=== PATIENT | male | born 1960 | race American Indian/Alaskan Native ===

== ENCOUNTER 2019-05-09 11:40 | Inpatient (IN) | payer BC ==
--- NOTE | 2019-05-09 11:49 | Emergency Department Report ---
Blank Doc - Documentation Documentation: This is a 58-year-old male that presents with left leg swelling and blisters. History of diabetes. Had a doppler ultrasound last week and was negative for DVT. Agrees to follow-up PCP for this complaint. Finger stick 209 in triage. This initial assessment/diagnostic orders/clinical plan/treatment(s) is/are subject to change based on patient's health status, clinical progression and re- assessment by fellow clinical providers in the ED. Further treatment and workup at subsequent clinical providers discretion. Patient/guardians urged not to elope from the ED as their condition may be serious if not clinically assessed and managed. Initial orders include: 1- Patient sent to [facility] for further evaluation and treatment 2- labs
[2019-05-09] MEDS ORDERED: ROCEPHIN/NS 1 GM/50 ML 1 GM/50 ML BAG IV ONE (12:19)
--- NOTE | 2019-05-09 12:20 | Emergency Department Report ---
<ENRIQUE SOMMERSANDRA - Last Filed: 05/09/19 15:36> - General Chief complaint: Extremity Problem,Nontraumatic Stated complaint: LT LEG SWOLLEN Time Seen by Provider: 05/09/19 11:44 - Related Data Allergies Allergy/AdvReac Type Severity Reaction Status Date / Time No Known Allergies Allergy Unverified 05/09/19 11:44 Abscess Boil HPI - HPI Chief Complaint: Extremity Problem,Nontraumatic Stated Complaint: LT LEG SWOLLEN Time Seen by Provider: 05/09/19 11:44 Allergies/Adverse Reactions: Allergies Allergy/AdvReac Type Severity Reaction Status Date / Time No Known Allergies Allergy Unverified 05/09/19 11:44 ED Course - Reevaluation(s) Reevaluation #1: I examined the patient. I discussed plan of care with patient. I discussed results with patient. Patient agrees plan of care and admission. Patient will be admitted to the hospital service. 05/09/19 15:38 - Consultations Consultation #1: I discussed case with nephrology, Dr Blevins. Nephrology recommends admission to the hospitalist service 05/09/19 15:30 Consultation #2: Hospitalist consulted for admission. Hospitalist admit patient. 05/09/19 15:38 ED Medical Decision Making - Lab Data Result diagrams: 05/09/19 12:26 05/09/19 12:26 Critical Care Time: Yes Critical Care Time: 35 minutes ED Disposition Clinical Impression: Acute renal insufficiency, Nephrotic syndrome, Left leg swelling, Essential hyp ertension Anemia Qualifiers: Anemia type: unspecified type Qualified Code(s): D64.9 - Anemia, unspecified Cellulitis Qualifiers: Site of cellulitis: extremity Site of cellulitis of extremity: lower extremity Laterality: left Qualified Code(s): L03.116 - Cellulitis of left lower limb Disposition: -09 OP ADMIT IP TO THIS HOSP Is pt being admited?: Yes Does the pt Need Aspirin: No Condition: Critical Instructions: Hypertension (ED) Referrals: PRIMARY CARE, [Primary Care Provider] - 3-5 Days Time of Disposition: 15:37 <CORAL CLARK - Last Filed: 05/09/19 15:45> - General Source: patient Mode of arrival: Ambulatory Limitations: No Limitations - History of Present Illness Initial comments: She is a 58-year-old male who comes to the ER complaining of swelling of his left lower extremity. He states that he is from [place]. He saw his primary care doctor in [place] last week she sent him for an ultrasound of his leg which was negative for DVT. Patient states that his PCP then told him he didn't know what else to do with him and he was discharged home with no antibiotics or follow-up plan. Denies fever or chills. Denies trauma. Denies bite to leg. Denies SOB or CP. Denies any pain of the RLE. Ambulatory. PMH HTN HPLD DM anemia PSH prostate surgery Denies CAD/CHF or CVA; NOR KD Denies drugs/ETOH/cig use PCP in [place] meds-pt states he is compliant with his meds insulin 2 BP meds- losartan and another that he can not recall the name of Iron Vit D pill for his high cholesterol -: Gradual Tetanus Up to Date: unsure Treatments Prior to Arrival: other ED Review of Systems ROS: Stated complaint: LT LEG SWOLLEN Other details as noted in HPI Comment: All other systems reviewed and negative Eyes: denies: eye pain ENT: denies: throat pain Respiratory: denies: cough Cardiovascular: edema (lle). denies: palpitations Endocrine: denies: flushing Gastrointestinal: denies: nausea, vomiting Genitourinary: denies: dysuria Musculoskeletal: as per HPI, other (lle swelling and rash) Skin: as per HPI, lesions Neurological: denies: headache Psychiatric: denies: anxiety Hematological/Lymphatic: denies: easy bleeding ED Past Medical Hx - Past Medical History Previous Medical History?: Yes Hx Hypertension: Yes Hx CVA: No Hx Heart Attack/AMI: No Hx Congestive Heart Failure: No Hx Diabetes: Yes Hx Deep Vein Thrombosis: No Hx Pulmonary Embolism: No Hx GERD: No Hx Liver Disease: No Hx Renal Disease: No Hx of Cancer: No Hx Sickle Cell Disease: No Hx Arthritis: No Hx Headaches / Migraines: No Hx Seizures: No Hx Kidney Stones: No Hx Psychiatric Treatment: No Hx Asthma: No Hx COPD: No Hx Tuberculosis: No Hx Dementia: No Hx HIV: No Additional medical history: anemia, dyslipidemia - Surgical History Past Surgical History?: Yes Additional Surgical History: Prostatectomy - Family History Family history: no significant - Social History Smoking Status: Never Smoker Substance Use Type: None ED Physical Exam - General Limitations: No Limitations General appearance: alert - Head Head exam: Present: normocephalic - Eye Eye exam: Present: PERRL Pupils: Present: normal accommodation - ENT ENT exam: Present: mucous membranes moist - Neck Neck exam: Present: normal inspection - Respiratory Respiratory exam: Present: normal lung sounds bilaterally - Cardiovascular Cardiovascular Exam: Present: regular rate, other (100 ON EXAM) - GI/Abdominal GI/Abdominal exam: Present: soft, normal bowel sounds - Rectal Rectal exam: Present: deferred - Extremities Exam Extremities exam: Present: normal inspection, full ROM - Back Exam Back exam: Present: normal inspection, full ROM. Absent: CVA tenderness (R), CVA tenderness (L) - Neurological Exam Neurological exam: Present: alert, oriented X3, CN II-XII intact - Psychiatric Psychiatric exam: Present: normal affect, normal mood - Skin Skin exam: Present: warm, dry, other (LLE SWELLING FROM KNEE TO ANKLE WITH DI SCOLORATION OF THE SKIN. DP PLUS 2 B. ) ED Course Vital Signs 05/09/19 05/09/19 11:45 14:29 Temperature 98.6 F Pulse Rate 103 H 93 H Respiratory 18 16 Rate Blood Pressure 207/113 Blood Pressure 143/84 [Right] O2 Sat by Pulse 98 97 Oximetry ED Medical Decision Making - Lab Data Result diagrams: 05/09/19 12:26 05/09/19 12:26 - Radiology Data Radiology results: report reviewed, image reviewed interpreted by me: no chf normal - Medical Decision Making PT STATES HE HAD US LAST TUESDAY THAT WAS NEG FOR DVT; HE STATES HIS PCP THEN DID NOT TELL HIM WHAT TO DO ABOUT HIS LEG HES HAD PROGRESSIVE PAIN AT THE LLE. NO TRAUMA NO INJURY/BITE KNOWN SEE HPI NO CP NO SOB NO HX VTE CHEST XRAY NOTED- NO CHF BP ELEVATED ON ADMIT- TAKING BP MEDS BG INC- PH NORMAL- ON INSULIN AT HOME; NO METFORMIN PER PT LABS NOTED UA NOTED URINE NA/CR NOTED BC ORDERED DISCUSSED CASE WITH DR NUNEZ; WHO THEN DISCUSSED WITH NEPHROLOGY CONSULTED- REC. ADMIT. DISCUSSED ALL FINDINGS WITH THE PT AND HE IS OK WITH ADMIT ADMIT TO HOSP MED WITH NEPHROLOGY CONSULT Lab Results 05/09/19 05/09/19 05/09/19 Range/Units 12:26 12:26 14:45 WBC 5.0 (4.5-11.0) K/mm3 RBC 3.80 (3.65-5.03) M/mm3 Hgb 10.1 L (11.8-15.2) gm/dl Hct 31.4 L (35.5-45.6) % MCV 83 L (84-94) fl MCH 27 L (28-32) pg MCHC 32 (32-34) % RDW 13.5 (13.2-15.2) % Plt Count 138 L (140-440) K/mm3 Lymph % (Auto) 15.1 (13.4-35.0) % [place] % (Auto) 8.0 H (0.0-7.3) % Eos % (Auto) 2.8 (0.0-4.3) % Baso % (Auto) 0.7 (0.0-1.8) % Lymph # 0.8 L (1.2-5.4) K/mm3 [place] # 0.4 (0.0-0.8) K/mm3 Eos # 0.1 (0.0-0.4) K/mm3 Baso # 0.0 (0.0-0.1) K/mm3 Seg Neutrophils % 73.4 H (40.0-70.0) % Seg Neutrophils # 3.7 (1.8-7.7) K/mm3 Sodium 142 (137-145) mmol/L Potassium 4.7 (3.6-5.0) mmol/L Chloride 110.3 H (98-107) mmol/L Carbon Dioxide 23 (22-30) mmol/L Anion Gap 13 mmol/L BUN 46 H (9-20) mg/dL Creatinine 3.1 H (0.8-1.5) mg/dL Estimated GFR 21 ml/min BUN/Creatinine Ratio 15 % Glucose 197 H (75-100) mg/dL Calcium 8.0 L (8.4-10.2) mg/dL Total Bilirubin 0.20 (0.1-1.2) mg/dL AST 21 (5-40) units/L ALT 20 (7-56) units/L Alkaline Phosphatase 181 H (35-129) units/L Total Protein 6.6 (6.3-8.2) g/dL Albumin 3.3 L (3.9-5) g/dL Albumin/Globulin Ratio 1.0 % Urine Color Straw (Yellow) Urine Turbidity Clear (Clear) Urine pH 6.0 (5.0-7.0) Ur Specific [place] 1.012 (1.003-1.030) Urine Protein >2000 mg dl (Negative) mg/dL Urine Glucose (UA) 150 (Negative) mg/dL Urine Ketones Neg (Negative) mg/dL Urine Blood Mod (Negative) Urine Nitrite Neg (Negative) Urine Bilirubin Neg (Negative) Urine Urobilinogen < 2.0 (<2.0) mg/dL Ur Leukocyte Esterase Tr (Negative) Urine WBC (Auto) 1.0 (0.0-6.0) /HPF Urine RBC (Auto) 7.0 (0.0-6.0) /HPF U Epithel Cells (Auto) < 1.0 (0-13.0) /HPF Urine Creatinine (0.1-20.0) mg/dL Urine Sodium mmol/L 05/09/19 Range/Units 14:45 WBC (4.5-11.0) K/mm3 RBC (3.65-5.03) M/mm3 Hgb (11.8-15.2) gm/dl Hct (35.5-45.6) % MCV (84-94) fl MCH (28-32) pg MCHC (32-34) % RDW (13.2-15.2) % Plt Count (140-440) K/mm3 Lymph % (Auto) (13.4-35.0) % [place] % (Auto) (0.0-7.3) % Eos % (Auto) (0.0-4.3) % Baso % (Auto) (0.0-1.8) % Lymph # (1.2-5.4) K/mm3 [place] # (0.0-0.8) K/mm3 Eos # (0.0-0.4) K/mm3 Baso # (0.0-0.1) K/mm3 Seg Neutrophils % (40.0-70.0) % Seg Neutrophils # (1.8-7.7) K/mm3 Sodium (137-145) mmol/L Potassium (3.6-5.0) mmol/L Chloride (98-107) mmol/L Carbon Dioxide (22-30) mmol/L Anion Gap mmol/L BUN (9-20) mg/dL Creatinine (0.8-1.5) mg/dL Estimated GFR ml/min BUN/Creatinine Ratio % Glucose (75-100) mg/dL Calcium (8.4-10.2) mg/dL Total Bilirubin (0.1-1.2) mg/dL AST (5-40) units/L ALT (7-56) units/L Alkaline Phosphatase (35-129) units/L Total Protein (6.3-8.2) g/dL Albumin (3.9-5) g/dL Albumin/Globulin Ratio % Urine Color (Yellow) Urine Turbidity (Clear) Urine pH (5.0-7.0) Ur Specific [place] (1.003-1.030) Urine Protein (Negative) mg/dL Urine Glucose (UA) (Negative) mg/dL Urine Ketones (Negative) mg/dL Urine Blood (Negative) Urine Nitrite (Negative) Urine Bilirubin (Negative) Urine Urobilinogen (<2.0) mg/dL Ur Leukocyte Esterase (Negative) Urine WBC (Auto) (0.0-6.0) /HPF Urine RBC (Auto) (0.0-6.0) /HPF U Epithel Cells (Auto) (0-13.0) /HPF Urine Creatinine 63.1 H (0.1-20.0) mg/dL Urine Sodium 145 mmol/L Vital Signs 05/09/19 05/09/19 11:45 14:29 Temperature 98.6 F Pulse Rate 103 H 93 H Respiratory 18 16 Rate Blood Pressure 207/113 Blood Pressure 143/84 [Right] O2 Sat by Pulse 98 97 Oximetry - Differential Diagnosis ro dvt/ ro cellulitis/ ro sepsis Critical care attestation.: If time is entered above; I have spent that time in minutes in the direct care of this critically ill patient, excluding procedure time. ED Disposition Does the pt Need Aspirin: No Time of Disposition: 13:59
[2019-05-09 12:40] LABS: Basophils % (Auto) 0.7 % (0.0-1.8); Eosinophils # (Auto) 0.1 K/mm3 (0.0-0.4); Eosinophils % (Auto) 2.8 % (0.0-4.3); Hematocrit 31.4 % (35.5-45.6); Hemoglobin 10.1 gm/dl (11.8-15.2); Lymphocytes # (Auto) 0.8 K/mm3 (1.2-5.4); Lymphocytes % (Auto) 15.1 % (13.4-35.0); Mean Corpuscular HGB Conc 32 % (32-34); Mean Corpuscular Volume 83 fl (84-94); Monocytes # (Auto) 0.4 K/mm3 (0.0-0.8); Platelet Count 138 K/mm3 (140-440); Red Cell Distribution Width 13.5 % (13.2-15.2)
[2019-05-09 13:06] LABS: Albumin 3.3 g/dL (3.9-5)
[2019-05-09] MEDS ORDERED: NACL 0.9% 1000 ML 1,000 ML IV ONE (13:28)
--- NOTE | 2019-05-09 13:49 | XRay Report ---
CHEST 2 VIEWS INDICATION: SOB/EDEMA. COMPARISON: None. FINDINGS: Support devices: None. Heart: Within normal limits. Pulmonary vasculature: All. Lungs/pleura: No acute air space or interstitial disease. No pneumothorax. Additional findings: Degenerative change in the spine. IMPRESSION: 1. No acute cardiopulmonary process. 2. No CHF or pneumonia. Signer Name: Kulwant Jameson MD Signed: 05/09/2019 1:44 PM Workstation Name: [id number]
[2019-05-09 15:00] LABS: Bilirubin,Urine NEG (Negative); Blood,Urine MOD (Negative); Color,Urine Straw (Yellow); Protein,Urine >2000 mg dL mg/dL (Negative); Urobilinogen,Urine < 2.0 mg/dL (<2.0)
[2019-05-09 15:02] LABS: Creatinine,Urine 63.1 mg/dL (0.1-20.0)
[2019-05-09] MEDS ORDERED: TYLENOL PO PRN (15:43)
[2019-05-09] MEDS ORDERED: SODIUM CHLORIDE FLUSH SYRINGE 10 ML IV PRN (15:43)
[2019-05-09] MEDS ORDERED: ZOFRAN IV PRN (15:43)
[2019-05-09] MEDS ORDERED: PROVENTIL IH PRN (15:43)
--- NOTE | 2019-05-09 16:08 | History and Physical Report ---
History of Present Illness Chief complaint: Im swollen, and my blood pressure is high History of present illness: 58 YO Male with HTN,DM, HLD presents to ED for evaluation. Pt states that he has experienced leg swelling over the past 2 weeks as well as uncontrolled HTN. Pt transported to [facility] via private vehicle. PT seen and evaluated in ED and found to have symptoms and laboratory findings consistent with JOSSY, Nephrotic Syndrome, and Hypertensive Urgency. Pt admitted to medical floor. Nephrology consulted in ED. Pt denies fever, Chills, CP, Palpitations, NVD, Productive cough, skin rash, or recent ill contacts. PT admitted to medical floor. Past History Past Medical History: diabetes, hypertension, hyperlipidemia Past Surgical History: No surgical history, Other (reviewed) Social history: single. denies: smoking, prescription drug abuse Family history: diabetes, hypertension Medications and Allergies Allergies Allergy/AdvReac Type Severity Reaction Status Date / Time No Known Allergies Allergy Unverified 05/09/19 11:44 Home Medications Medication Instructions Recorded Confirmed Last Taken Type AtorvaSTATin [Lipitor] 20 mg PO QHS 05/09/19 05/09/19 05/08/19 History Insulin Aspart [NovoLOG Flexpen] 10 units SQ AC 05/09/19 05/09/19 05/08/19 History Insulin Degludec [Tresiba 50 unit SQ QDAY 05/09/19 05/09/19 05/08/19 History Flextouch U-200] Metoprolol Xl [Metoprolol 50 mg PO QDAY 05/09/19 05/09/19 05/08/19 History SUCCINATE ER TAB] amLODIPine [Norvasc] 10 mg PO DAILY 05/09/19 05/09/19 05/08/19 History Active Meds: Active Medications Acetaminophen (Tylenol) 650 mg PO Q4H PRN PRN Reason: Pain MILD(1-3)/Fever >100.5/SCHNEIDER Albuterol (Proventil) 2.5 mg IH Q4HRT PRN PRN Reason: Shortness Of Breath Ondansetron HCl (Zofran) 4 mg IV Q8H PRN PRN Reason: Nausea And Vomiting Sodium Chloride (Sodium Chloride Flush Syringe 10 Ml) 10 ml IV BID SARAH Sodium Chloride (Sodium Chloride Flush Syringe 10 Ml) 10 ml IV PRN PRN PRN Reason: LINE FLUSH Review of Systems All systems: negative Constitutional: other (high blood pressure) Exam - Constitutional Vitals: Temp Pulse Resp BP Pulse Ox 98.6 F 93 H 16 143/84 97 05/09/19 11:45 05/09/19 14:29 05/09/19 14:29 05/09/19 14:29 05/09/19 14:29 General appearance: Present: no acute distress, well-nourished - EENT Eyes: Present: PERRL ENT: hearing intact, clear oral mucosa - Neck Neck: Present: supple, normal ROM - Respiratory Respiratory effort: normal Respiratory: bilateral: CTA - Cardiovascular Heart Sounds: Present: S1 & S2. Absent: rub, click - Extremities Extremities: pulses symmetrical, No edema Peripheral Pulses: within normal limits - Abdominal General gastrointestinal: Present: soft, non-tender, non-distended, normal bowel sounds Male genitourinary: Present: normal - Integumentary Integumentary: Present: clear, warm, dry - Musculoskeletal Musculoskeletal: gait normal, strength equal bilaterally - Psychiatric Psychiatric: appropriate mood/affect, intact judgment & insight - Neurologic Neurologic: CNII-XII intact, moves all extremities Results - Labs CBC & Chem 7: 05/09/19 12:26 05/09/19 12:26 Labs: Abnormal lab results 05/09/19 05/09/19 05/09/19 Range/Units 12:26 12:26 14:45 Hgb 10.1 L (11.8-15.2) gm/dl Hct 31.4 L (35.5-45.6) % MCV 83 L (84-94) fl MCH 27 L (28-32) pg Plt Count 138 L (140-440) K/mm3 [place] % (Auto) 8.0 H (0.0-7.3) % Lymph # 0.8 L (1.2-5.4) K/mm3 Seg Neutrophils % 73.4 H (40.0-70.0) % Chloride 110.3 H (98-107) mmol/L BUN 46 H (9-20) mg/dL Creatinine 3.1 H (0.8-1.5) mg/dL Glucose 197 H (75-100) mg/dL Calcium 8.0 L (8.4-10.2) mg/dL Alkaline Phosphatase 181 H (35-129) units/L Albumin 3.3 L (3.9-5) g/dL Urine Creatinine 63.1 H (0.1-20.0) mg/dL Assessment and Plan - Patient Problems (1) JOSSY (acute kidney injury) Current Visit: Yes Status: Acute Plan to address problem: monitor UOP q shift, Nephrology consulted, blood pressure control, urinalysis to monitor urine protein, (2) Hypertensive urgency, malignant Current Visit: Yes Status: Acute Plan to address problem: monitor BP q shift, continue medical management, IV hydralazine for SBP >155 (3) Diabetes Current Visit: Yes Status: Acute Plan to address problem: ADAdiet, insulin, accu check, hypoglycemia protocol (4) Nephrotic syndrome Current Visit: Yes Status: Acute Plan to address problem: Nephrology consulted, urine protein monitoring, urine electrolytes, supportive care, (5) DVT prophylaxis Current Visit: Yes Status: Acute Plan to address problem: SCD to BLE while in bed, Pt ambulatory
[2019-05-09] MEDS ORDERED: NON-FORMULARY (Insulin Aspart [Novolog Flexpen] 10 UNITS) SQ SCH (16:30)
[2019-05-09] MEDS ORDERED: APRESOLINE IV ONE (16:31)
[2019-05-09] MEDS ORDERED: APRESOLINE ONE (16:54)
[2019-05-09] MEDS: HumaLOG SUB-Q SCH (17:03)
[2019-05-09] MEDS ORDERED: TOPROL XL PO SCH ×2 (18:50→22:00)
[2019-05-09] MEDS ORDERED: NORVASC PO SCH (18:51)
[2019-05-09] MEDS: NORVASC PO SCH (22:31)
[2019-05-09] MEDS: SODIUM CHLORIDE FLUSH SYRINGE 10 ML IV SCH (22:34)
[2019-05-10] MEDS ORDERED: APRESOLINE IV PRN (05:07)
[2019-05-10 07:30] LABS: Calcium 7.8 mg/dL (8.4-10.2)
[2019-05-10] MEDS: HumaLOG SUB-Q SCH ×2 (07:30→14:24)
[2019-05-10] MEDS: HumuLIN R SUB-Q SCH ×2 (07:30→14:24)
--- NOTE | 2019-05-10 08:00 | Ultrasound Report ---
ULTRASOUND RENAL INDICATION / CLINICAL INFORMATION: Acute renal failure.. COMPARISON: None available. FINDINGS: RIGHT KIDNEY: Length = 9.7 cm. [normal > 9 cm] - Parenchymal Thickness = 1.7 cm. [normal > 1.5 cm] - Echogenicity: Increased - Hydronephrosis: None. - Cyst or mass: No significant abnormality. - Stones: None seen. LEFT KIDNEY: Length = 10.9 cm. [normal > 9 cm] - Parenchymal Thickness = 1.4 cm. [normal > 1.5 cm] - Echogenicity: Increased - Hydronephrosis: None. - Cyst or mass: No significant abnormality. - Stones: None seen. URINARY BLADDER: No significant abnormality. FREE FLUID: None. ADDITIONAL FINDINGS: None. IMPRESSION: Normal size but slightly echogenic kidneys consistent with nonspecific renal parenchymal disease. No focal renal lesion or hydronephrosis. Signer Name: Brandon Pinon Jr, MD Signed: 05/10/2019 7:56 AM Workstation Name: [id number]
--- NOTE | 2019-05-10 09:34 | Consultation ---
History of Present Illness - Reason for Consult Consult date: 05/10/19 acute renal failure, chronic renal failure - History of Present Illness The patient is a 58 YO male with history significant for Type 2 DM (5 yrs), HTN (5 yrs) and HLD (5 yrs) who presented to [facility] ED with c/o L leg swelling over the past 2 weeks. He also reports high BP inspite of taking all the meds prescribed by his PCP. Patient has been taking NSAIDs along with ASA for the past 3 weeks for leg pain. Per patient he had a scan of the L LE last week at [place] that was negative for clot. He denies N, V, D, abd pain, fever, chills, cp, cough, foamy urine, cp, sob, hemoptysis, dysuria, hematuria, rash or syncope. He has findings suggestive of Nephrotic Syndrome. He was admitted for treatment of Hypertensive urgency. Nephrology was consulted for further evaluation. Past History Past Medical History: diabetes, hypertension, hyperlipidemia Past Surgical History: No surgical history, Other (reviewed) Social history: single. denies: smoking, prescription drug abuse Family history: diabetes, hypertension Medications and Allergies Allergies Allergy/AdvReac Type Severity Reaction Status Date / Time No Known Allergies Allergy Unverified 05/09/19 11:44 Home Medications Medication Instructions Recorded Confirmed Last Taken Type AtorvaSTATin [Lipitor] 20 mg PO QHS 05/09/19 05/09/19 05/08/19 History Insulin Aspart [NovoLOG Flexpen] 10 units SQ AC 05/09/19 05/09/19 05/08/19 History Insulin Degludec [Tresiba 50 unit SQ QDAY 05/09/19 05/09/19 05/08/19 History Flextouch U-200] Metoprolol Xl [Metoprolol 50 mg PO QDAY 05/09/19 05/09/19 05/08/19 History SUCCINATE ER TAB] amLODIPine [Norvasc] 10 mg PO DAILY 05/09/19 05/09/19 05/08/19 History Active Meds: Active Medications Acetaminophen (Tylenol) 650 mg PO Q4H PRN PRN Reason: Pain MILD(1-3)/Fever >100.5/SCHNEIDER Albuterol (Proventil) 2.5 mg IH Q4HRT PRN PRN Reason: Shortness Of Breath Amlodipine Besylate (Norvasc) 10 mg PO DAILY [facility] Last Admin: 05/09/19 22:31 Dose: 10 mg Documented by: Atorvastatin Calcium (Lipitor) 20 mg PO QHS [facility] Last Admin: 05/09/19 22:32 Dose: 20 mg Documented by: Hydralazine HCl (Apresoline) 10 mg IV Q6HR PRN PRN Reason: Hypertension Last Admin: 05/10/19 06:02 Dose: 10 mg Documented by: Insulin Human Lispro (Humalog) 10 unit SUB-Q AC [facility] Last Admin: 05/09/19 17:03 Dose: Not Given Documented by: Insulin Human Regular (Humulin R) 0 units SUB-Q [facility]; Protocol Miscellaneous Medication (Insulin Degludec [Tresiba Flextouch U-200]) 50 unit SQ QDAY [facility] Ondansetron HCl (Zofran) 4 mg IV Q8H PRN PRN Reason: Nausea And Vomiting Sodium Chloride (Sodium Chloride Flush Syringe 10 Ml) 10 ml IV BID [facility] Last Admin: 05/09/19 22:34 Dose: 10 ml Documented by: Sodium Chloride (Sodium Chloride Flush Syringe 10 Ml) 10 ml IV PRN PRN PRN Reason: LINE FLUSH Last Admin: 05/09/19 17:04 Dose: 10 ml Documented by: Review of Systems Constitutional: no weight loss, no weight gain, no fever, no chills, no anorexi a, no fatigue, no weakness, no poor appetite Cardiovascular: edema, high blood pressure, leg edema, no chest pain, no orthopnea, no syncope, no lightheadedness, no shortness of breath, no dyspnea on exertion, no decreased exercise tolerance Respiratory: no cough, no hemoptysis, no shortness of breath, no dyspnea on exertion, no sleep apnea Gastrointestinal: no abdominal pain, no nausea, no vomiting, no diarrhea, no melena Genitourinary Male: no dysuria, no hematuria Rectal: no bleeding Musculoskeletal: no gait dysfunction Integumentary: no rash, no redness, no wounds, no jaundice Neurological: no paralysis, no weakness, no parathesias, no seizures, no syncope, no aphasia, no change in speech, no change in mentation, no confusion, no memory loss Exam - Vital Signs Vital signs: Vital Signs Temp Pulse Resp BP Pulse Ox 98.6 F 103 H 18 207/113 98 09/04/19 11:45 05/09/19 11:45 05/09/19 11:45 05/09/19 11:45 05/09/19 11:45 - General Appearance General appearance: well-developed, well-nourished, appears stated age, other (no distress) EENT: ATNC, PERRL, mucous membranes moist, hearing intact, vision intact Neck: Present: neck supple, trachea midline Respiratory: Clear to Ascultation Heart: regular, S1S2, no murmurs Gastrointestinal: Present: normoactive bowel sounds. Absent: tenderness, distended Integumentary: warm and dry, other (L leg discrete abrasions / rash noted) Neurologic: no focal deficit, no asterixis, alert and oriented x3 Musculoskeletal: Present: other (b/l LE edema, R 1+ and L 2+) Psychiatric: cooperative Results - Lab Results 05/09/19 12:26 05/10/19 05:13 Most recent lab results Calcium 7.8 mg/dL (8.4-10.2) L 05/10/19 05:13 Phosphorus 3.30 mg/dL (2.5-4.5) 05/10/19 05:13 Magnesium 1.30 mg/dL (1.7-2.3) L 05/10/19 05:13 63.1 mg/dL (0.1-20.0) H 05/09/19 14:45 145 mmol/L 05/09/19 14:45 - Image Kidney/bladder ultrasound: report reviewed Assessment and Plan 1. Acute kidney injury / CKD: No prior renal function is available at this time. Suspect JOSSY superimposed on CKD rather than purely JOSSY. Renal US suggestive of CKD. CKD likely due to DM and HTN. Monitor renal function. Avoid nephrotoxic agents. Meds dosage based on GFR. 2. Suspected nephrotic syndrome: Urine quantification pending. GAVI, ANCA, complements and SPEP are pending. He refused HIV testing. 3. Uncontrolled HTN: HCTZ added. 4. FEN: Volume overload, HCTZ. Replete Mg. Monitor lytes. 5. Hypochromic anemia: POA. 6. DM type 2.
[2019-05-10] MEDS ORDERED: TOPROL XL PO SCH (10:00)
[2019-05-10] MEDS ORDERED: NORVASC PO SCH (10:00)
[2019-05-10] MEDS ORDERED: INSULIN DEGLUDEC 50 UNIT SQ SCH (10:00)
[2019-05-10] MEDS: NORVASC PO SCH (10:26)
[2019-05-10] MEDS: SODIUM CHLORIDE FLUSH SYRINGE 10 ML IV SCH (10:27)
[2019-05-10] MEDS ORDERED: HCTZ PO SCH (11:00)
[2019-05-10] MEDS ORDERED: LOPRESSOR PO SCH (11:00)
[2019-05-10] MEDS ORDERED: MAGNESIUM SULFATE 2GM/50ML 2 GM/50 ML BAG IV ONE (11:30)
--- NOTE | 2019-05-10 11:59 | Consultation ---
History of Present Illness Consult date: 05/10/19 Past History Past Medical History: diabetes, hypertension, hyperlipidemia Past Surgical History: No surgical history, Other (reviewed) Social history: single. denies: smoking, prescription drug abuse Family history: diabetes, hypertension Medications and Allergies Allergies Allergy/AdvReac Type Severity Reaction Status Date / Time No Known Allergies Allergy Unverified 05/09/19 11:44 Home Medications Medication Instructions Recorded Confirmed Last Taken Type AtorvaSTATin [Lipitor] 20 mg PO QHS 05/09/19 05/09/19 05/08/19 History Insulin Aspart [NovoLOG Flexpen] 10 units SQ AC 05/09/19 05/09/19 05/08/19 History Insulin Degludec [Tresiba 50 unit SQ QDAY 05/09/19 05/09/19 05/08/19 History Flextouch U-200] Metoprolol Xl [Metoprolol 50 mg PO QDAY 05/09/19 05/09/19 05/08/19 History SUCCINATE ER TAB] amLODIPine [Norvasc] 10 mg PO DAILY 05/09/19 05/09/19 05/08/19 History Active Meds: Active Medications Acetaminophen (Tylenol) 650 mg PO Q4H PRN PRN Reason: Pain MILD(1-3)/Fever >100.5/SCHNEIDER Albuterol (Proventil) 2.5 mg IH Q4HRT PRN PRN Reason: Shortness Of Breath Amlodipine Besylate (Norvasc) 10 mg PO DAILY [facility] Last Admin: 05/10/19 10:26 Dose: 10 mg Documented by: Atorvastatin Calcium (Lipitor) 20 mg PO QHS [facility] Last Admin: 05/09/19 22:32 Dose: 20 mg Documented by: Hydralazine HCl (Apresoline) 10 mg IV Q6HR PRN PRN Reason: Hypertension Last Admin: 05/10/19 06:02 Dose: 10 mg Documented by: Hydrochlorothiazide (Hctz) 25 mg PO QDAY [facility] Last Admin: 05/10/19 10:27 Dose: 25 mg Documented by: Magnesium Sulfate (Magnesium Sulfate 2gm/50ml) 2 gm in 50 mls @ 25 mls/hr IV ONCE ONE Stop: 05/10/19 13:29 Last Admin: 05/10/19 11:48 Dose: 25 mls/hr Documented by: Insulin Human Lispro (Humalog) 10 unit SUB-Q AC [facility] Last Admin: 05/10/19 07:30 Dose: Not Given Documented by: Insulin Human Regular (Humulin R) 0 units SUB-Q [facility]; Protocol Last Admin: 05/10/19 07:30 Dose: Not Given Documented by: Metoprolol Tartrate (Lopressor) 50 mg PO BID [facility] Last Admin: 05/10/19 10:26 Dose: 50 mg Documented by: Miscellaneous Medication (Insulin Degludec [Tresiba Flextouch U-200]) 50 unit SQ QDAY [facility] Ondansetron HCl (Zofran) 4 mg IV Q8H PRN PRN Reason: Nausea And Vomiting Sodium Chloride (Sodium Chloride Flush Syringe 10 Ml) 10 ml IV BID [facility] Last Admin: 05/10/19 10:27 Dose: 10 ml Documented by: Sodium Chloride (Sodium Chloride Flush Syringe 10 Ml) 10 ml IV PRN PRN PRN Reason: LINE FLUSH Last Admin: 05/09/19 17:04 Dose: 10 ml Documented by: Physical Examination Vital Signs Temp Pulse Resp BP Pulse Ox 98.6 F 103 H 18 207/113 98 05/09/19 11:45 05/09/19 11:45 05/09/19 11:45 05/09/19 11:45 05/09/19 11:45 Results 05/09/19 12:26 05/10/19 05:13 Cardiac Enzymes 05/09/19 Range/Units 12:26 AST 21 (5-40) units/L CBC 05/09/19 Range/Units 12:26 WBC 5.0 (4.5-11.0) K/mm3 RBC 3.80 (3.65-5.03) M/mm3 Hgb 10.1 L (11.8-15.2) gm/dl Hct 31.4 L (35.5-45.6) % Plt Count 138 L (140-440) K/mm3 Lymph # 0.8 L (1.2-5.4) K/mm3 [place] # 0.4 (0.0-0.8) K/mm3 Eos # 0.1 (0.0-0.4) K/mm3 Baso # 0.0 (0.0-0.1) K/mm3 Comprehensive Metabolic Panel 05/09/19 05/10/19 Range/Units 12:26 05:13 Sodium 142 144 (137-145) mmol/L Potassium 4.7 5.0 (3.6-5.0) mmol/L Chloride 110.3 H 112.8 H (98-107) mmol/L Carbon Dioxide 23 22 (22-30) mmol/L BUN 46 H 41 H (9-20) mg/dL Creatinine 3.1 H 2.9 H (0.8-1.5) mg/dL Glucose 197 H 139 H (75-100) mg/dL Calcium 8.0 L 7.8 L (8.4-10.2) mg/dL AST 21 (5-40) units/L ALT 20 (7-56) units/L Alkaline Phosphatase 181 H (35-129) units/L Total Protein 6.6 (6.3-8.2) g/dL Albumin 3.3 L (3.9-5) g/dL Assessment and Plan Detailed Cardiology consult dictaed.
[2019-05-10] MEDS ORDERED: APRESOLINE PO SCH (14:00)
--- NOTE | 2019-05-10 14:15 | Progress Note ---
Assessment and Plan / JOSSY (acute kidney injury) on CKD with Suspected nephrotic syndrome monitor UOP q shift, Nephrology consulted, blood pressure control, urinalysis to monitor urine protein, Renal US suggestive of CKD. CKD likely due to DM and HTN. Urine quantification pending. GAVI, ANCA, complements and SPEP are pending. He refused HIV testing. / Hypertensive urgency, malignant monitor BP q shift, continue medical management, IV hydralazine for SBP >155 added hctZ / Diabetes ADAdiet, insulin, accu check, hypoglycemia protocol / DVT prophylaxis SCD to BLE while in bed, Pt ambulatory Subjective Date of service: 05/10/19 Interval history: Patient seen and examined c/o leg swelling, denies chest pain Objective - Constitutional Vitals: Vital Signs - 12hr 05/10/19 05/10/19 05/10/19 05:50 06:02 07:26 Temperature 98.0 F Pulse Rate 82 82 89 Respiratory 17 18 Rate Blood Pressure 176/85 176/85 165/83 O2 Sat by Pulse 97 98 Oximetry 05/10/19 05/10/19 05/10/19 10:26 10:38 11:57 Temperature 98.7 F Pulse Rate 89 79 Respiratory 22 Rate Blood Pressure 165/83 184/92 O2 Sat by Pulse 99 96 Oximetry General appearance: Present: no acute distress, well-nourished - EENT Eyes: PERRL, EOM intact ENT: hearing intact, clear oral mucosa Ears: bilateral: normal - Neck Neck: supple, normal ROM - Respiratory Respiratory effort: normal Respiratory: bilateral: CTA - Cardiovascular Rhythm: regular Heart Sounds: Present: S1 & S2. Absent: gallop, rub Extremities: pulses intact, No edema, normal color, Full ROM - Gastrointestinal General gastrointestinal: Present: soft, non-tender, non-distended, normal bowel sounds - Integumentary Integumentary: warm, dry ((L leg discrete abrasions / rash noted)) - Musculoskeletal Musculoskeletal: 1, strength equal bilaterally - Neurologic Neurologic: moves all extremities - Psychiatric Psychiatric: memory intact, appropriate mood/affect, intact judgment & insight - Labs CBC & Chem 7: 05/09/19 12:26 05/10/19 05:13 Labs: Abnormal lab results 05/09/19 05/09/19 05/09/19 Range/Units 11:56 14:45 17:03 Chloride (98-107) mmol/L BUN (9-20) mg/dL Creatinine (0.8-1.5) mg/dL Glucose (75-100) mg/dL POC Glucose 209 H 129 H (70-105) Calcium (8.4-10.2) mg/dL Magnesium (1.7-2.3) mg/dL Total Creatine Kinase (55-170) units/L Urine Creatinine 63.1 H (0.1-20.0) mg/dL 05/09/19 05/10/19 05/10/19 Range/Units 22:59 05:13 08:35 Chloride 112.8 H (98-107) mmol/L BUN 41 H (9-20) mg/dL Creatinine 2.9 H (0.8-1.5) mg/dL Glucose 139 H (75-100) mg/dL POC Glucose 151 H 134 H (70-105) Calcium 7.8 L (8.4-10.2) mg/dL Magnesium 1.30 L (1.7-2.3) mg/dL Total Creatine Kinase 346 H (55-170) units/L Urine Creatinine (0.1-20.0) mg/dL 05/10/19 Range/Units 12:05 Chloride (98-107) mmol/L BUN (9-20) mg/dL Creatinine (0.8-1.5) mg/dL Glucose (75-100) mg/dL POC Glucose 195 H (70-105) Calcium (8.4-10.2) mg/dL Magnesium (1.7-2.3) mg/dL Total Creatine Kinase (55-170) units/L Urine Creatinine (0.1-20.0) mg/dL
[2019-05-10 15:36] VITALS: BP 190/94
[2019-05-10 22:23] LABS: Creatinine,Urine 108.6 mg/dL (0.1-20.0)
[2019-05-10 22:43] LABS: Protein/Creatinine Ratio,Urine 2.51
--- NOTE | 2019-05-10 23:46 | Consultation ---
CARDIOLOGY CONSULTATION REFERRING PHYSICIAN: Areli Pedraza MD, hospitalist. HISTORY OF PRESENT ILLNESS: A 58-year-old overweight, pleasant -[place] gentleman with a history of longstanding hypertension, chronic kidney disease, was admitted with swelling of his left lower extremity for the past 2-3 weeks. He also complains of pain in the left foot on walking. He was seen by his primary physician at [place], and he had a venous Doppler of the left lower extremity in the recent past and it was negative for deep venous thrombosis. The patient's initial blood pressure was 207/113 mmHg. Subsequently, it came down with treatment with medications and his most recent blood pressure is 165/83 mmHg. No history of chest pain or shortness of breath at rest or on exertion. No history of nausea or vomiting, palpitations, near syncope or syncope. His EKG revealed evidence of second-degree AV block, Mobitz type 1 (Wenckebach). He also had marked first-degree AV block. His monitor also revealed the same finding with rare episodes of 2:1 AV block with a narrow QRS complex. He is totally asymptomatic. 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 He also has a history of type 2 diabetes mellitus and hyperlipidemia. PAST MEDICAL HISTORY: History of multiple medical problems as described above. He has had surgery for carcinoma of the prostate in the past as prostatectomy. No history of CAD or myocardial infarction in the past. No history of TIA or CVA in the past. SOCIAL HISTORY: Not a smoker, not an alcoholic, no history of drug abuse. FAMILY HISTORY: Negative for premature coronary artery disease. MEDICATIONS: Albuterol p.r.n., amlodipine 10 mg p.o. daily, atorvastatin 20 mg p.o. at bedtime daily. He received IV ceftriaxone once. Hydralazine 10 mg IV q.6 hours p.r.n., hydrochlorothiazide 25 mg p.o. daily, insulin. He has received intravenous magnesium sulfate, metoprolol 50 mg p.o. b.i.d. REVIEW OF SYSTEMS: CARDIOVASCULAR SYSTEM: As described in the history. PULMONARY: Negative. HEMATOPOIETIC SYSTEM: History of chronic anemia. BONE AND JOINTS: Negative. GASTROINTESTINAL SYSTEM: Negative. Review of rest of the 10 systems is negative. PHYSICAL EXAMINATION: GENERAL: A 58-year-old overweight/mildly obese, pleasant -[place] gentleman. VITAL SIGNS: He is afebrile, pulse 89 per minute, irregularity present. Blood pressure 165/83 mmHg, respirations 18 per minute. Neurologically, he is alert and oriented x 3. HEENT: Mild pallor of the mucous membranes. NECK: No JVD, no bruit. HEART: PMI shifted laterally and is forcible in nature, no palpable thrills. Auscultation of the heart reveals S1, S2 are heard. S2 is loud, S4 is heard. Occasional irregularity. Grade 2/6 ejection systolic murmur is heard over the precardium, more prominent over the base, no rub. EXTREMITIES: Peripheral pulses could not be felt in the left lower extremity because of 2+ edema. Distal pulses felt in the right lower extremity. ABDOMEN: Soft, benign, bowel sounds heard. NEUROLOGICAL: No focal neurological deficit. SKIN: Skin over the left lower extremity has chronic changes, excoriations, areas of redness present. LABORATORY DATA: Hemoglobin and hematocrit 10.1 and 31.4 respectively. Mild thrombocytopenia -- 138, potassium 5, BUN 41, creatinine 2.9, sodium 144, chloride 113, CO2 of 22, glucose 134. Chest x-ray 2 views, negative. EKG on monitor findings as described in the history. His EKG also revealed prolonged QT and apices. The patient's serum magnesium level was found to be 1.3. He has already received intravenous magnesium supplements. IMPRESSION: 1. Second-degree atrioventricular block, Mobitz type 1 -- Wenckebach -- asymptomatic. 2. Hypertensive urgency -- blood pressure is improving now. 3. Left leg swelling -- Deep vein thrombosis was ruled out by venous Doppler of the left lower extremity in the recent past. 4. History of type 2 diabetes mellitus and hyperlipidemia. 5. Chronic anemia. 6. [id number] kidney disease -- possible nephrotic syndrome. RECOMMENDATIONS: 1. Close monitoring on telemetry. 2. Blood pressure control. 3. Follow up with the customs director. Thanking you. We will follow. JOB# [id number] [facility]/NT[facility]
[2019-05-13 06:22] LABS: Albumin 2.7 g/dL (3.8-4.8); Gamma Globulin 1.1 g/dL (0.8-1.7)
[2019-05-13 21:27] LABS: Myeloperoxidase Antibody <1.0 AI (<1.0)
== END 2019-05-10 15:45 | disposition left against medical advice (07) | DRG 683 ==
LOC: ED 11:40 → 3A 15:43
PROVIDERS: ADMIT Internal Medicine; ATTEND Internal Medicine
DX: N17.9 Acute kidney failure, unspecified (principal); L03.116 Cellulitis of left lower limb; I16.0 Hypertensive urgency; I12.9 Hypertensive chronic kidney disease with stage 1 through stage 4 chronic kidney disease, or unspecified chronic kidney disease; E11.22 Type 2 diabetes mellitus with diabetic chronic kidney disease; N18.9 Chronic kidney disease, unspecified; E78.5 Hyperlipidemia, unspecified; D64.9 Anemia, unspecified; D50.9 Iron deficiency anemia, unspecified; I44.1 Atrioventricular block, second degree; Z83.3 Family history of diabetes mellitus; Z82.49 Family history of ischemic heart disease and other diseases of the circulatory system; Z79.4 Long term (current) use of insulin; Z79.899 Other long term (current) drug therapy; Z90.79 Acquired absence of other genital organ(s)
CPT/HCPCS: 36415; 71046; 76770; 80048; 80053; 81001; 82550; 82570; 82962; 83735; 84100; 84156; 84165; 84300; 85025; 86021; 86038; 86160; 87040; 93005; 93010; 96361; 96365; 96375; G0378; A9270-GY; J0360; J0696; J1815; J3475; J7030

== ENCOUNTER 2019-05-11 09:50 | Inpatient (IN) | payer BC ==
[2019-05-11] MEDS ORDERED: NORMODYNE IV ONE (12:02)
[2019-05-11 12:25] LABS: Basophils % (Auto) 0.8 % (0.0-1.8); Eosinophils # (Auto) 0.1 K/mm3 (0.0-0.4); Eosinophils % (Auto) 2.7 % (0.0-4.3); Hemoglobin 10.1 gm/dl (11.8-15.2); Lymphocytes # (Auto) 0.9 K/mm3 (1.2-5.4); Lymphocytes % (Auto) 16.7 % (13.4-35.0); Mean Corpuscular HGB Conc 33 % (32-34); Mean Corpuscular Volume 82 fl (84-94); Monocytes # (Auto) 0.4 K/mm3 (0.0-0.8); Monocytes % (Auto) 7.5 % (0.0-7.3); Platelet Count 135 K/mm3 (140-440); Red Blood Count 3.78 M/mm3 (3.65-5.03); Red Cell Distribution Width 13.2 % (13.2-15.2)
--- NOTE | 2019-05-11 12:34 | Emergency Department Report ---
ED General Adult HPI - General Chief complaint: Extremity Problem,Nontraumatic Stated complaint: (L) LEG SWOLLEN/HIGH BP Time Seen by Provider: 05/11/19 11:26 Source: patient Mode of arrival: Ambulatory Limitations: No Limitations - History of Present Illness Initial comments: Patient is a 58-year-old male who has returned turned to be readmitted to the hospital. Patient was admitted 2 days ago secondary to probable nephrotic syndrome. Patient had a very large amount of protein in his urine had a BUN/creatinine of 41 and 2.9. Patient also has elevated blood pressure. Patient was admitted to the hospital is undergoing nephrology consultation but he left AGAINST MEDICAL ADVICE yesterday. Patient states he was not prepared to stay in he was unable to contact his job or get things from his home. Patient states he's returned for further evaluation but he is prepared to stay at this time. Patient states is been no shortness of breath or chest pain. Patient does state he still has lower extremity edema left greater than right. He also has some facial puffiness as well. - Related Data Home Medications Medication Instructions Recorded Confirmed Last Taken AtorvaSTATin [Lipitor] 20 mg PO QHS 05/09/19 05/09/19 05/08/19 Insulin Aspart [NovoLOG Flexpen] 10 units SQ AC 05/09/19 05/09/19 05/08/19 Insulin Degludec [Tresiba 50 unit SQ QDAY 05/09/19 05/09/19 05/08/19 Flextouch U-200] Metoprolol Xl [Metoprolol 50 mg PO QDAY 05/09/19 05/09/19 05/08/19 SUCCINATE ER TAB] amLODIPine [Norvasc] 10 mg PO DAILY 05/09/19 05/09/19 05/08/19 Allergies Allergy/AdvReac Type Severity Reaction Status Date / Time No Known Allergies Allergy Unverified 05/09/19 11:44 ED Review of Systems ROS: Stated complaint: (L) LEG SWOLLEN/HIGH BP Other details as noted in HPI Comment: All other systems reviewed and negative ED Past Medical Hx - Past Medical History Previous Medical History?: Yes Hx Hypertension: Yes Hx CVA: No Hx Heart Attack/AMI: No Hx Congestive Heart Failure: No Hx Diabetes: Yes Hx Deep Vein Thrombosis: No Hx Pulmonary Embolism: No Hx GERD: No Hx Liver Disease: No Hx Renal Disease: No Hx Sickle Cell Disease: No Hx Arthritis: No Hx Headaches / Migraines: No Hx Seizures: No Hx Kidney Stones: No Hx Psychiatric Treatment: No Hx Asthma: No Hx COPD: No Hx Tuberculosis: No Hx Dementia: No Hx HIV: No Additional medical history: anemia, dyslipidemia - Surgical History Past Surgical History?: Yes Additional Surgical History: Prostatectomy - Social History Smoking Status: Never Smoker Substance Use Type: None - Medications Home Medications: Home Medications Medication Instructions Recorded Confirmed Last Taken Type AtorvaSTATin [Lipitor] 20 mg PO QHS 05/09/19 05/09/19 05/08/19 History Insulin Aspart [NovoLOG Flexpen] 10 units SQ AC 05/09/19 05/09/19 05/08/19 Histo ry Insulin Degludec [Tresiba 50 unit SQ QDAY 05/09/19 05/09/19 05/08/19 History Flextouch U-200] Metoprolol Xl [Metoprolol 50 mg PO QDAY 05/09/19 05/09/19 05/08/19 History SUCCINATE ER TAB] amLODIPine [Norvasc] 10 mg PO DAILY 05/09/19 05/09/19 05/08/19 History ED Physical Exam - General Limitations: No Limitations General appearance: alert, in no apparent distress - Head Head exam: Present: atraumatic, normocephalic - Eye Eye exam: Present: normal appearance, PERRL, EOMI - ENT ENT exam: Present: mucous membranes moist - Neck Neck exam: Present: normal inspection - Respiratory Respiratory exam: Present: normal lung sounds bilaterally. Absent: respiratory distress, wheezes, rales, rhonchi - Cardiovascular Cardiovascular Exam: Present: regular rate, normal rhythm. Absent: systolic murmur, diastolic murmur, rubs, gallop - GI/Abdominal GI/Abdominal exam: Present: soft, normal bowel sounds. Absent: distended, tenderness, guarding, rebound, rigid - Rectal Rectal exam: Present: deferred - Extremities Exam Extremities exam: Present: normal inspection, other (patient with lower extremity edema with the left being greater than the right) - Back Exam Back exam: Present: normal inspection - Neurological Exam Neurological exam: Present: alert, oriented X3 - Psychiatric Psychiatric exam: Present: normal affect, normal mood - Skin Skin exam: Present: warm, dry, intact, normal color. Absent: rash ED Course Vital Signs 05/11/19 09:56 Temperature 98.1 F Pulse Rate 96 H Respiratory 18 Rate Blood Pressure 181/91 O2 Sat by Pulse 99 Oximetry ED Medical Decision Making - Lab Data Result diagrams: 05/11/19 12:15 Critical care attestation.: If time is entered above; I have spent that time in minutes in the direct care of this critically ill patient, excluding procedure time. ED Disposition Condition: Stable Referrals: PRIMARY CARE, [Primary Care Provider] - 3-5 Days
[2019-05-11 14:00] LABS: Calcium 8.1 mg/dL (8.4-10.2)
[2019-05-11] MEDS ORDERED: PROVENTIL IH PRN (14:43)
[2019-05-11] MEDS ORDERED: ZOFRAN IV PRN (14:43)
[2019-05-11] MEDS ORDERED: SODIUM CHLORIDE FLUSH SYRINGE 10 ML IV PRN (14:43)
[2019-05-11] MEDS ORDERED: TYLENOL PO PRN (14:43)
--- NOTE | 2019-05-11 14:43 | History and Physical Report ---
History of Present Illness Chief complaint: Im still swollen History of present illness: 58 YO Male with HTN,DM, HLD presents to ED for evaluation. Pt states that he has experienced leg swelling over the past 2 weeks as well as uncontrolled HTN. Pt presented to [facility] on 05/09/19 and left AMA on 05/10/19. Pt transported to [facility] via private vehicle. PT seen and evaluated in ED and found to have symptoms and laboratory findings consistent with JOSSY, Nephrotic Syndrome, and Hypertensive Urgency. Pt admitted to medical floor. Nephrology consulted in ED. Pt denies Fever, Chills, CP, Palpitations, NVD, Productive cough, skin rash, or recent ill contacts. PT admitted to medical floor. Pt counseled regarding medication compliance. Past History Past Medical History: diabetes, hypertension, hyperlipidemia Past Surgical History: No surgical history, Other (reviewed) Social history: single. denies: smoking, alcohol abuse, prescription drug abuse Family history: diabetes, hypertension Medications and Allergies Allergies Allergy/AdvReac Type Severity Reaction Status Date / Time No Known Allergies Allergy Unverified 05/09/19 11:44 Home Medications Medication Instructions Recorded Confirmed Last Taken Type AtorvaSTATin [Lipitor] 20 mg PO QHS 05/09/19 05/11/19 05/10/19 History Insulin Aspart [NovoLOG Flexpen] 10 units SQ AC 05/09/19 05/11/19 05/11/19 History Insulin Degludec [Tresiba 50 unit SQ QDAY 05/09/19 05/11/19 05/11/19 History Flextouch U-200] Metoprolol Xl [Metoprolol 50 mg PO QDAY 05/09/19 05/11/19 05/10/19 History SUCCINATE ER TAB] amLODIPine [Norvasc] 10 mg PO DAILY 05/09/19 05/11/19 05/10/19 History Ferrous Sulfate [Iron 325 MG] 325 mg PO DAILY 05/11/19 05/11/19 05/11/19 08:00 History Losartan/Hydrochlorothiazide 1 each PO DAILY 05/11/19 05/11/19 05/11/19 08:00 History [Losartan-Hctz 100-25 mg Tab] Review of Systems Constitutional: other (swelling), no weight loss, no weight gain, no fever, no chills Ears, nose, mouth and throat: no ear pain, no ear discharge, no tinnitis, no decreased hearing, no nose pain, no nasal congestion Cardiovascular: no chest pain, no orthopnea, no palpitations, no edema, no syncope, no lightheadedness Respiratory: no cough, no cough with sputum, no excessive sputum, no hemoptysis Gastrointestinal: no abdominal pain, no nausea, no vomiting, no constipation Genitourinary Male: no hematuria, no flank pain, no urinary frequency, no nocturia Rectal: no pain, no incontinence, no bleeding Musculoskeletal: no neck stiffness, no neck pain, no shooting arm pain, no shooting leg pain, no morning stiffness, no muscle cramps, no atrophy Integumentary: no rash, no pruritis, no redness, no sores, no wounds, no jaundice Neurological: no transient paralysis, no paralysis, no weakness, no parathesias, no numbness, no seizures Psychiatric: no anxiety, no memory loss, no change in sleep habits, no sleep disturbances, no insomnia, no change in appetite, no change in libido, no suicidal ideation Endocrine: no cold intolerance, no heat intolerance, no polyphagia, no polydipsia, no polyuria, no excessive sweating Hematologic/Lymphatic: no lymphadenopathy, no lymphedema Allergic/Immunologic: no urticaria, no allergic rhinitis, no wheezing, no anaphylaxis Exam - Constitutional Vitals: Temp Pulse Resp BP Pulse Ox 98.1 F 76 20 186/98 100 05/11/19 09:56 05/11/19 12:42 05/11/19 12:42 05/11/19 12:42 05/11/19 12:42 General appearance: Present: no acute distress, well-nourished - EENT Eyes: Present: PERRL ENT: hearing intact, clear oral mucosa - Neck Neck: Present: supple, normal ROM - Respiratory Respiratory effort: normal Respiratory: bilateral: CTA - Cardiovascular Heart Sounds: Present: S1 & S2. Absent: rub, click - Extremities Extremities: pulses symmetrical Extremity abnormal: edema Peripheral Pulses: within normal limits - Abdominal General gastrointestinal: Present: soft, non-tender, non-distended, normal bowel sounds Male genitourinary: Present: normal - Integumentary Integumentary: Present: clear, warm, dry - Musculoskeletal Musculoskeletal: gait normal, strength equal bilaterally - Psychiatric Psychiatric: appropriate mood/affect, intact judgment & insight - Neurologic Neurologic: CNII-XII intact, moves all extremities Results - Labs CBC & Chem 7: 05/11/19 12:15 05/11/19 12:15 Labs: Abnormal lab results 05/11/19 05/11/19 Range/Units 12:15 12:15 Hgb 10.1 L (11.8-15.2) gm/dl Hct 31.0 L (35.5-45.6) % MCV 82 L (84-94) fl MCH 27 L (28-32) pg Plt Count 135 L (140-440) K/mm3 [place] % (Auto) 7.5 H (0.0-7.3) % Lymph # 0.9 L (1.2-5.4) K/mm3 Seg Neutrophils % 72.3 H (40.0-70.0) % Potassium 5.3 H (3.6-5.0) mmol/L Chloride 107.3 H (98-107) mmol/L Carbon Dioxide 21 L (22-30) mmol/L BUN 41 H (9-20) mg/dL Creatinine 3.1 H (0.8-1.5) mg/dL Glucose 223 H (75-100) mg/dL Calcium 8.1 L (8.4-10.2) mg/dL Assessment and Plan - Patient Problems (1) JOSSY (acute kidney injury) Current Visit: No Status: Acute Plan to address problem: Monitor UOP q shift, Nephrology consulted in ED, continue current therapy, urine electrolytes, Rapid HIV (2) Hypertensive urgency, malignant Current Visit: No Status: Acute Plan to address problem: Monitor BP q shift, IV hydralazine PRN, HCTZ (3) Nephrotic syndrome Current Visit: No Status: Acute Plan to address problem: Nephrology consulted in ED, blood pressure control, (4) DVT prophylaxis Current Visit: No Status: Acute Plan to address problem: SCD to BLE while in bed, Pt ambulatory
[2019-05-11 16:32] LABS: Amphetamine Screen,Urine PRESUMPTIVE NEGATIVE; Benzodiazepines Screen,Urine PRESUMPTIVE NEGATIVE; Cannabinoid Screen,Urine PRESUMPTIVE NEGATIVE; Cocaine Screen,Urine PRESUMPTIVE NEGATIVE; Methadone Screen,Urine PRESUMPTIVE NEGATIVE; Opiate Screen,Urine PRESUMPTIVE NEGATIVE
[2019-05-11 16:37] LABS: Bacteria,Urine 1+ /HPF (Negative); Bilirubin,Urine NEG (Negative); Blood,Urine SM (Negative); Color,Urine Yellow (Yellow); Mucus,Urine FEW /HPF; Urobilinogen,Urine < 2.0 mg/dL (<2.0)
[2019-05-11 16:40] LABS: Protein,Urine >500 mg/dL (Negative)
[2019-05-11] MEDS: HumuLIN R SUB-Q SCH (22:46)
[2019-05-11] MEDS: FEOSOL PO SCH (22:46)
[2019-05-11] MEDS: SODIUM CHLORIDE FLUSH SYRINGE 10 ML IV SCH (22:52)
[2019-05-12] MEDS: APRESOLINE IV PRN ×2 (05:36→17:22)
[2019-05-12] MEDS: HumuLIN R SUB-Q SCH ×4 (07:30→21:38)
--- NOTE | 2019-05-12 09:43 | Consultation ---
History of Present Illness - Reason for Consult Consult date: 05/12/19 chronic renal failure, proteinuria - History of Present Illness The patient is a 58 YO male with history significant for Type 2 DM (5 yrs), HTN (5 yrs), HLD (5 yrs), Proteinuria and b/l LE edema who presented to [facility] yesterd ay after he left AMA on 05/10/2019. He previously admitted on 05/09/2019 for evaluation of bilateral LE swelling and uncontrolled HTN. Patient has been taking NSAIDs along with ASA for the past 3 weeks for leg pain. He denies any other symptoms. Nephrology was consulted for further evaluation. Past History Past Medical History: diabetes, hypertension, hyperlipidemia, other (Proteinuria) Past Surgical History: No surgical history, Other (reviewed) Social history: single. denies: smoking, alcohol abuse, prescription drug abuse Family history: diabetes, hypertension Medications and Allergies Allergies Allergy/AdvReac Type Severity Reaction Status Date / Time No Known Allergies Allergy Unverified 05/09/19 11:44 Home Medications Medication Instructions Recorded Confirmed Last Taken Type AtorvaSTATin [Lipitor] 20 mg PO QHS 05/09/19 05/11/19 05/10/19 History Insulin Aspart [NovoLOG Flexpen] 10 units SQ AC 05/09/19 05/11/19 05/11/19 History Insulin Degludec [Tresiba 50 unit SQ QDAY 05/09/19 05/11/19 05/11/19 History Flextouch U-200] Metoprolol Xl [Metoprolol 50 mg PO QDAY 05/09/19 05/11/19 05/10/19 History SUCCINATE ER TAB] amLODIPine [Norvasc] 10 mg PO DAILY 05/09/19 05/11/19 05/10/19 History Ferrous Sulfate [Iron 325 MG] 325 mg PO DAILY 05/11/19 05/11/19 05/11/19 08:00 History Losartan/Hydrochlorothiazide 1 each PO DAILY 05/11/19 05/11/19 05/11/19 08:00 Hi story [Losartan-Hctz 100-25 mg Tab] Active Meds: Active Medications Acetaminophen (Tylenol) 650 mg PO Q4H PRN PRN Reason: Pain MILD(1-3)/Fever >100.5/SCHNEIDER Albuterol (Proventil) 2.5 mg IH Q4HRT PRN PRN Reason: Shortness Of Breath Amlodipine Besylate (Norvasc) [address] [facility] Atorvastatin Calcium (Lipitor) [address] [facility] Last Admin: 05/11/19 22:46 Dose: 20 mg Documented by: Ferrous Sulfate (Feosol) [address] [facility] Last Admin: 05/11/19 22:46 Dose: 325 mg Documented by: Hydralazine HCl (Apresoline) 10 mg IV Q4H PRN PRN Reason: Hypertension Last Admin: 05/12/19 05:36 Dose: 10 mg Documented by: Hydrochlorothiazide (Hctz) [address] [facility] Insulin Human Regular (Humulin R) 0 units SUB-Q ACHS [facility]; Protocol Last Admin: 05/11/19 22:46 Dose: 4 units Documented by: Losartan Potassium (Cozaar) [address] [facility] Metoprolol Succinate (Toprol Xl) [address] [facility] Ondansetron HCl (Zofran) 4 mg IV Q8H PRN PRN Reason: Nausea And Vomiting Sodium Chloride (Sodium Chloride Flush Syringe 10 Ml) [address] [facility] Last Admin: 05/11/19 22:52 Dose: 10 ml Documented by: Sodium Chloride (Sodium Chloride Flush Syringe 10 Ml) 10 ml IV PRN PRN PRN Reason: LINE FLUSH Review of Systems Constitutional: no weight loss, no weight gain, no fever, no chills, no anorexia, no fatigue, no weakness, no malaise, no poor appetite Cardiovascular: edema, high blood pressure, leg edema, no chest pain, no orthopnea, no syncope, no lightheadedness, no shortness of breath, no dyspnea on exertion Respiratory: no cough, no shortness of breath, no dyspnea on exertion Gastrointestinal: no abdominal pain, no nausea, no vomiting, no diarrhea, no melena, no jaundice Genitourinary Male: no dysuria, no hematuria Rectal: no bleeding Integumentary: no rash, no wounds, no jaundice Neurological: no paralysis, no seizures, no syncope, no convulsions, no aphasia, no change in speech, no change in mentation, no confusion, no memory loss Psychiatric: no depression Exam - Vital Signs Vital signs: Vital Signs Temp Pulse Resp BP Pulse Ox 98.1 F 96 H 18 181/91 99 05/11/19 09:56 05/11/19 09:56 05/11/19 09:56 05/11/19 09:56 05/11/19 09:56 - General Appearance General appearance: well-developed, well-nourished, appears stated age, other (no distress) EENT: ATNC, PERRL, mucous membranes moist, hearing intact, vision intact Neck: Present: neck supple, trachea midline Respiratory: Clear to Ascultation Heart: regular, S1S2, no murmurs Gastrointestinal: Present: normoactive bowel sounds. Absent: tenderness, distended Integumentary: warm and dry Neurologic: no focal deficit, no asterixis, alert and oriented x3 Musculoskeletal: Present: other (bilateral LE edema, L > R) Psychiatric: cooperative Results - Lab Results 05/11/19 12:15 05/12/19 10:30 Most recent lab results Calcium 8.1 mg/dL (8.4-10.2) L 05/11/19 12:15 - Image Kidney/bladder ultrasound: report reviewed Assessment and Plan 1. 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 Renal US suggestive of CKD. Monitor renal function. Avoid nephrotoxic agents. Meds dosage based on GFR. 2. Proteinuria: Non-nephrotic range proteinuria. GAVI, ANCA, complements and SPEP are pending. HIV negative. Patient refused kidney biopsy. 3. FEN: Hyperkalemia, kayexalate ordered. Volume overload, HCTZ. Monitor lytes. 4. Uncontrolled HTN: Meds adjusted. 5. Hypochromic anemia: POA. 6. DM type 2.
[2019-05-12] MEDS ORDERED: HCTZ PO SCH (10:00)
[2019-05-12] MEDS ORDERED: COZAAR PO SCH (10:00)
[2019-05-12] MEDS ORDERED: NON-FORMULARY (Losartan/Hydrochlorothiazide [Losartan-Hctz 100-25 Mg Tab] 1 EACH) PO SCH (10:00)
[2019-05-12] MEDS ORDERED: TOPROL XL PO SCH (10:00)
[2019-05-12] MEDS: FEOSOL PO SCH (10:41)
[2019-05-12] MEDS: HCTZ PO SCH (10:51)
[2019-05-12] MEDS: NORVASC PO SCH (10:52)
[2019-05-12 11:02] LABS: Calcium 8.2 mg/dL (8.4-10.2)
[2019-05-12] MEDS: SODIUM CHLORIDE FLUSH SYRINGE 10 ML IV SCH ×2 (11:27→21:44)
[2019-05-12] MEDS ORDERED: TOPROL XL PO ONE (12:00)
[2019-05-12] MEDS ORDERED: KIONEX PO ONE (12:00)
[2019-05-12] MEDS: TRIPLE ANTIBIOTIC TP SCH ×3 (12:13→20:20)
--- NOTE | 2019-05-12 12:22 | Progress Note ---
Assessment and Plan / ? JOSSY (acute kidney injury) on CKD with Suspected nephrotic syndrome monitor UOP q shift, Nephrology consulted, blood pressure control, Renal US on last admission was suggestive of CKD. CKD likely due to DM and HTN. GAVI, ANCA, complements and SPEP ordered during last admission- pending Negative HIV test /Hyperkalemia - Stop losartan, give 1 dose of Kayexalate - Monitor BMP / Hypertensive urgency, malignant monitor BP q shift, continue medical management, IV hydralazine for SBP >155 Currently on metoprolol, amlodipine, and HCTZ Would increase the dose of metoprolol and add hydralazine / Diabetes ADAdiet, insulin, accu check, hypoglycemia protocol / DVT prophylaxis SCD to BLE while in bed, Pt ambulatory Brief history: 58-year-old male with history of diabetes mellitus type 2 and hypertension, who left AMA about a day ago presented here with persistent complaint of left lower extremity swelling and elevated blood pressure. He also noted to have creatinine of 3.1, blood pressure of 207 /113 Subjective Date of service: 05/12/19 Interval history: Patient seen and examined. Medical records and medication list reviewed. No acute event overnight noted by the RN. Patient denies any chest pain or difficulty breathing. Patient is tolerating diet. Systolic blood pressures remain greater than 180 Discussed plan of care at bedside with patient. Objective - Exam Narrative Exam: General appearance: Present: no acute distress, well-nourished - EENT Eyes: PERRL, EOM intact ENT: hearing intact, clear oral mucosa Ears: bilateral: normal - Neck Neck: supple, normal ROM - Respiratory Respiratory effort: normal Respiratory: bilateral: CTA - Cardiovascular Rhythm: regular Heart Sounds: Present: S1 & S2. Absent: gallop, rub Extremities: pulses intact, No edema, normal color, Full ROM - Gastrointestinal General gastrointestinal: Present: soft, non-tender, non-distended, normal bowel sounds - Integumentary Integumentary: warm, dry ((L leg discrete abrasions / rash noted)) - Musculoskeletal Musculoskeletal: 1, strength equal bilaterally - Neurologic Neurologic: moves all extremities - Psychiatric Psychiatric: memory intact, appropriate mood/affect, intact judgment & insight - Constitutional Vitals: Vital Signs - 12hr 05/12/19 05/12/19 05/12/19 05:10 10:52 12:12 Temperature 99.1 F Pulse Rate 80 130 H 92 H Respiratory 20 Rate Blood Pressure 181/83 189/95 180/90 O2 Sat by Pulse 97 Oximetry - Labs CBC & Chem 7: 05/11/19 12:15 05/12/19 10:30 Labs: Abnormal lab results 05/11/19 05/11/19 05/11/19 Range/Units 12:15 12:15 17:04 Hgb 10.1 L (11.8-15.2) gm/dl Hct 31.0 L (35.5-45.6) % MCV 82 L (84-94) fl MCH 27 L (28-32) pg Plt Count 135 L (140-440) K/mm3 [place] % (Auto) 7.5 H (0.0-7.3) % Lymph # 0.9 L (1.2-5.4) K/mm3 Seg Neutrophils % 72.3 H (40.0-70.0) % Potassium 5.3 H (3.6-5.0) mmol/L Chloride 107.3 H (98-107) mmol/L Carbon Dioxide 21 L (22-30) mmol/L BUN 41 H (9-20) mg/dL Creatinine 3.1 H (0.8-1.5) mg/dL Glucose 223 H (75-100) mg/dL POC Glucose 143 H (70-105) Calcium 8.1 L (8.4-10.2) mg/dL 05/11/19 05/12/19 05/12/19 Range/Units 21:32 08:14 10:30 Hgb (11.8-15.2) gm/dl Hct (35.5-45.6) % MCV (84-94) fl MCH (28-32) pg Plt Count (140-440) K/mm3 [place] % (Auto) (0.0-7.3) % Lymph # (1.2-5.4) K/mm3 Seg Neutrophils % (40.0-70.0) % Potassium 5.5 H (3.6-5.0) mmol/L Chloride 109.6 H (98-107) mmol/L Carbon Dioxide (22-30) mmol/L BUN 38 H (9-20) mg/dL Creatinine 3.1 H (0.8-1.5) mg/dL Glucose 174 H (75-100) mg/dL POC Glucose 230 H 150 H (70-105) Calcium 8.2 L (8.4-10.2) mg/dL 05/12/19 Range/Units 11:30 Hgb (11.8-15.2) gm/dl Hct (35.5-45.6) % MCV (84-94) fl MCH (28-32) pg Plt Count (140-440) K/mm3 [place] % (Auto) (0.0-7.3) % Lymph # (1.2-5.4) K/mm3 Seg Neutrophils % (40.0-70.0) % Potassium (3.6-5.0) mmol/L Chloride (98-107) mmol/L Carbon Dioxide (22-30) mmol/L BUN (9-20) mg/dL Creatinine (0.8-1.5) mg/dL Glucose (75-100) mg/dL POC Glucose 178 H (70-105) Calcium (8.4-10.2) mg/dL
[2019-05-12] MEDS: APRESOLINE PO SCH ×2 (14:00→20:20)
[2019-05-12] MEDS ORDERED: LASIX PO ONE (20:05)
[2019-05-12] MEDS ORDERED: LASIX PO SCH (20:10)
[2019-05-12] MEDS: HEPARIN SUB-Q SCH (21:40)
[2019-05-13] MEDS: APRESOLINE IV PRN (06:39)
[2019-05-13] MEDS: HumuLIN R SUB-Q SCH ×2 (07:30→16:03)
[2019-05-13] MEDS: APRESOLINE PO SCH ×2 (08:53→13:12)
[2019-05-13] MEDS: TRIPLE ANTIBIOTIC TP SCH ×2 (08:53→16:03)
[2019-05-13] MEDS: HCTZ PO SCH ×2 (08:54→16:02)
[2019-05-13] MEDS: FEOSOL PO SCH ×2 (08:54→16:02)
[2019-05-13] MEDS: TOPROL XL PO SCH ×2 (08:54→16:02)
[2019-05-13] MEDS: HEPARIN SUB-Q SCH ×2 (08:55→16:02)
[2019-05-13] MEDS: NORVASC PO SCH (08:55)
[2019-05-13] MEDS: SODIUM CHLORIDE FLUSH SYRINGE 10 ML IV SCH ×2 (08:56→16:02)
--- NOTE | 2019-05-13 08:59 | Progress Note ---
Assessment and Plan 1. 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 Renal US suggestive of CKD. Monitor renal function. Avoid nephrotoxic agents. Meds dosage based on GFR. 2. Proteinuria: Non-nephrotic range proteinuria. ANCA positive. GAVI, complements and SPEP are negative. HIV negative. Patient refused kidney biopsy. 3. FEN: Hyperkalemia, improved. Volume overload, HCTZ. Monitor lytes. 4. Uncontrolled HTN: Meds adjusted. 5. Hypochromic anemia: POA. 6. DM type 2. F/u with me in 1-2 weeks. Subjective Date of service: 05/13/19 Interval history: Patient was seen and examined at the bedside. Doing ok. Objective - Vital Signs Vital signs: Vital Signs - 12hr 05/12/19 05/12/19 05/13/19 22:00 23:13 05:31 Temperature 98.5 F 99.5 F Pulse Rate 89 89 Respiratory 18 18 20 Rate Blood Pressure 159/81 165/82 O2 Sat by Pulse 96 96 Oximetry 05/13/19 05/13/19 05/13/19 06:39 08:54 08:55 Temperature Pulse Rate 89 84 84 Respiratory Rate Blood Pressure 165/82 179/86 179/86 O2 Sat by Pulse Oximetry - General Appearance General appearance: well-developed, well-nourished, appears stated age, other (no distress) EENT: ATNC, PERRL, mucous membranes moist, hearing intact, vision intact Neck: supple Respiratory: Present: Clear to Ascultation Cardiology: regular, S1S2, no murmurs Gastrointestinal: normoactive bowel sounds, no tenderness, no distended Integumentary: warm and dry Neurologic: no focal deficit, no asterixis, alert and oriented x3 Musculoskeletal: other (bilateral LE edema, L > R) Psychiatric: cooperative - Lab 05/11/19 12:15 05/13/19 04:55 Most recent lab results Calcium 8.0 mg/dL (8.4-10.2) L 05/13/19 04:55 Medications & Allergies - Medications Allergies/Adverse Reactions: Allergies No Known Allergies Allergy (Unverified 05/09/19 11:44) Home Medications: Home Medications Medication Instructions Recorded Confirmed Last Taken Type Ferrous Sulfate [Iron 325 MG] 325 mg PO DAILY 05/11/19 05/11/19 05/11/19 08:00 History Aspirin EC [Halfprin EC] 81 mg PO QDAY #30 tablet. 05/13/19 Unknown Rx AtorvaSTATin [Lipitor] 20 mg PO QHS 30 Days #30 05/13/19 05/11/19 05/10/19 Rx Insulin Aspart [NovoLOG Flexpen] 5 units SQ AC 30 Days 05/13/19 05/11/19 05/11/19 Rx Insulin Degludec [Tresiba 5 unit SQ QDAY 30 Days 05/13/19 05/11/19 05/11/19 Rx Flextouch U-200] Metoprolol Xl [Metoprolol 100 mg PO QDAY #30 tablet 05/13/19 Unknown Rx SUCCINATE ER TAB] NIFEdipine XL [Procardia Xl] 60 mg PO Q12HR #60 tablet 05/13/19 Unknown Rx hydrALAZINE [Apresoline TAB] 100 mg PO TID #90 tab 05/13/19 Unknown Rx hydroCHLOROthiazide [HCTZ] 25 mg PO QDAY #30 tablet 05/13/19 Unknown Rx Active Medications: Generic Name Dose Route Start Last Admin Trade Name Freq PRN Reason Stop Dose Admin Acetaminophen 650 mg 05/11/19 14:43 Tylenol PO Q4H PRN Pain MILD(1-3)/Fever >100.5/SCHNEIDER Albuterol 2.5 mg 05/11/19 14:43 Proventil IH Q4HRT PRN Shortness Of Breath Amlodipine Besylate 10 mg 05/12/19 10:00 05/13/19 08:55 Norvasc PO 10 mg DAILY SARAH Administration Atorvastatin Calcium 20 mg 05/11/19 22:00 05/12/19 21:39 Lipitor PO 20 mg QHS SARAH Administration Ferrous Sulfate 325 mg 05/11/19 22:00 05/13/19 08:54 Feosol PO 325 mg DAILY SARAH Administration Furosemide 40 mg 05/12/19 20:10 05/12/19 21:39 Lasix PO 40 mg ONCE SARAH Administration Heparin Sodium (Porcine) 5,000 unit 05/12/19 22:00 05/13/19 08:55 Heparin SUB-Q 5,000 unit Q12HR SARAH Administration Hydralazine HCl 10 mg 05/11/19 14:45 05/13/19 06:39 Apresoline IV 10 mg Q4H PRN Administration Hypertension Hydralazine HCl 100 mg 05/12/19 14:00 05/13/19 08:53 Apresoline PO 100 mg TID SARAH Administration Hydrochlorothiazide 25 mg 05/12/19 10:00 05/13/19 08:54 Hctz PO 25 mg QDAY SARAH Administration Insulin Human Regular 0 units 05/11/19 22:00 05/13/19 07:30 Humulin R SUB-Q Not Given ACHS [facility] Protocol Metoprolol Succinate 100 mg 05/13/19 10:00 05/13/19 08:54 Toprol Xl PO 100 mg QDAY SARAH Administration Neomycin/Polymyxin/Bacitracin 1 applic 05/12/19 14:00 05/13/19 08:53 Triple Antibiotic TP 1 applic TID SARAH Administration Ondansetron HCl 4 mg 05/11/19 14:43 Zofran IV Q8H PRN Nausea And Vomiting Sodium Chloride 10 ml 05/11/19 22:00 05/13/19 08:56 Sodium Chloride Flush Syringe 10 Ml IV 10 ml BID SARAH Administration Sodium Chloride 10 ml 05/11/19 14:43 Sodium Chloride Flush Syringe 10 Ml IV PRN PRN LINE FLUSH
[2019-05-13] MEDS ORDERED: COZAAR PO SCH (10:00)
[2019-05-13] MEDS ORDERED: PROCARDIA XL PO SCH (11:00)
--- NOTE | 2019-05-13 12:21 | Discharge Summary ---
Providers - Providers Date of Admission: 05/11/19 14:43 Date of discharge: 05/13/19 Attending physician: XIMENA TRAN 05/12/19 08:12 Consult to Physician [CONS] Routine Comment: Consulting Provider: HARRIS HERNANDEZ Physician Instructions: Reason For Exam: jossy/NS Primary care physician: [employer] Hospitalization Condition: Stable Hospital course: 58-year-old male with history of diabetes mellitus type 2 and hypertension, who left AMA about a day ago presented here with persistent complaint of left lower extremity swelling and elevated blood pressure. He also noted to have creatinine of 3.1, blood pressure of 207 /113 Discharge diagnosis: /JOSSY (acute kidney injury) on CKD stage 4 with proteinurea monitor UOP q shift, Nephrology consulted, blood pressure control, Renal US on last admission was suggestive of CKD. CKD likely due to DM and HTN. GAVI, ANCA, complements and SPEP ordered during last admission- pending Negative HIV test /Hyperkalemia - Stopped losartan, s/p 1 dose of Kayexalate - resolved / Hypertensive urgency, malignant monitor BP q shift, continue medical management, IV hydralazine for SBP >155 Currently on metoprolol, hydralazine, and HCTZ Changed norvasc to procardia / Diabetes ADAdiet, insulin, accu check, hypoglycemia protocol / DVT prophylaxis SCD to BLE while in bed, Pt ambulatory Physical exam: General appearance: Present: no acute distress, well-nourished - EENT Eyes: PERRL, EOM intact ENT: hearing intact, clear oral mucosa Ears: bilateral: normal - Neck Neck: supple, normal ROM - Respiratory Respiratory effort: normal Respiratory: bilateral: CTA - Cardiovascular Rhythm: regular Heart Sounds: Present: S1 & S2. Absent: gallop, rub Extremities: pulses intact, No edema, normal color, Full ROM - Gastrointestinal General gastrointestinal: Present: soft, non-tender, non-distended, normal bowel sounds - Integumentary Integumentary: warm, dry ((L leg discrete abrasions / rash noted)) - Musculoskeletal Musculoskeletal: 1, strength equal bilaterally - Neurologic Neurologic: moves all extremities - Psychiatric Psychiatric: memory intact, appropriate mood/affect, intact judgment & insight Disposition: DC-01 TO HOME OR SELFCARE Time spent for discharge: 34 minutes Core Measure Documentation - Palliative Care Palliative Care/ Comfort Measures: Not Applicable - Core Measures Any of the following diagnoses?: none Exam - Constitutional Vitals: Temp Pulse Resp BP Pulse Ox 99.5 F 84 20 179/86 96 05/13/19 05:31 05/13/19 08:55 05/13/19 05:31 05/13/19 08:55 05/13/19 05:31 Plan Activity: advance as tolerated Weight Bearing Status: Weight Bear as Tolerated Diet: diabetic, renal Special Instructions: record daily BP diary Follow up with: SITA SHEIKH MD [Primary Care Provider] - 3-5 Days HARRIS HERNANDEZ MD [Staff Physician] - 7 Days Prescriptions: hydrALAZINE [Apresoline TAB] 100 mg PO TID #90 tab Aspirin EC [Halfprin EC] 81 mg PO QDAY #30 tablet. hydroCHLOROthiazide [HCTZ] 25 mg PO QDAY #30 tablet Metoprolol Xl [Metoprolol SUCCINATE ER TAB] 100 mg PO QDAY #30 tablet NIFEdipine XL [Procardia Xl] 60 mg PO Q12HR #60 tablet
[2019-05-13 14:23] VITALS: BP 166/84
== END 2019-05-13 15:30 | disposition home or self-care (01) | DRG 641 ==
LOC: ED 09:50 → 3A 14:43
PROVIDERS: ADMIT Internal Medicine; ATTEND Internal Medicine
DX: E87.5 Hyperkalemia (principal); N17.9 Acute kidney failure, unspecified; N18.4 Chronic kidney disease, stage 4 (severe); I16.0 Hypertensive urgency; E11.22 Type 2 diabetes mellitus with diabetic chronic kidney disease; I12.9 Hypertensive chronic kidney disease with stage 1 through stage 4 chronic kidney disease, or unspecified chronic kidney disease; R80.9 Proteinuria, unspecified; E87.70 Fluid overload, unspecified; D50.9 Iron deficiency anemia, unspecified; Z82.49 Family history of ischemic heart disease and other diseases of the circulatory system; Z83.3 Family history of diabetes mellitus; Z79.4 Long term (current) use of insulin; Z79.899 Other long term (current) drug therapy; Z90.79 Acquired absence of other genital organ(s)
CPT/HCPCS: 36415; 80048; 80307; 81001; 82962; 85025; 87806; 94640; 96374; G0378; A6250; A9270-GY; J0360; J1644; J1815

== ENCOUNTER 2019-05-30 11:10 | Outpatient (CLI) | payer BC ==
[2019-05-30 11:57] LABS: Albumin 3.6 g/dL (3.9-5); Calcium 8.1 mg/dL (8.4-10.2)
[2019-05-30 13:03] LABS: Creatinine,Urine 89.1 mg/dL (0.1-20.0)
[2019-05-30 13:14] LABS: Protein/Creatinine Ratio,Urine 2.32
== END 2019-05-30 11:11 | disposition home or self-care (01) ==
LOC: LAB 11:10
PROVIDERS: ATTEND Internal Medicine Nephrology
DX: I12.9 Hypertensive chronic kidney disease with stage 1 through stage 4 chronic kidney disease, or unspecified chronic kidney disease (principal); N18.3 Chronic kidney disease, stage 3 (moderate); E11.22 Type 2 diabetes mellitus with diabetic chronic kidney disease
CPT/HCPCS: 36415; 80048; 82040; 82570; 84100; 84156

== ENCOUNTER 2020-12-12 12:00 | Inpatient (IN) | payer BC ==
--- NOTE | 2020-12-12 14:20 | Event Note ---
ED Screening Note Date of service: 12/12/20 Time: 14:16 ED Screening Note: 60-year-old male patient with history of diabetes, hypertension, and chronic renal insufficiency presents to the emergency department at the instruction of his hearing dog trainer, Dr. Blevins, for further evaluation and management of abnormal labs. Patient states he is unsure exactly which labs were abnormal, but states he was previously hospitalized for hyperkalemia. He is not on dialysis. He is asymptomatic. No pain, no difficulty breathing, no urinary changes. EKG ordered in triage due to concern for hyperkalemia. General: Awake, appropriately interactive, no acute distress. Neck: Supple. Full range of motion intact. Cardiovascular: Normal peripheral perfusion. Pulmonary: No respiratory distress. Patient is speaking normally without use of accessory muscles. Skin: No apparent rashes or lesions. Neurological: No facial asymmetry. Speech is clear. Follows commands. Patient is alert and oriented. Musculoskeletal: Moves all four extremities spontaneously with normal range of motion. Psych: Cooperative. Appropriate mood and affect. I have greeted and performed a focused rapid initial assessment of this patient. A comprehensive ED assessment and evaluation of the patient, analysis of all test results, and completion of the medical decision-making process will be conducted by additional ED providers. This initial assessment/diagnostic orders/clinical plan/treatment(s) is/are subject to change based on patients health status, clinical progression and re-assessment. Further treatment and workup at subsequent clinical provider's discretion. Patient/guardian urged not to elope from the ED as their condition may be serious if not clinically assessed and managed.
[2020-12-12 14:26] LABS: Basophils % (Auto) 0.8 % (0.0-1.8); Eosinophils # (Auto) 0.2 K/mm3 (0.0-0.4); Eosinophils % (Auto) 5.1 % (0.0-4.3); Hematocrit 29.5 % (35.5-45.6); Hemoglobin 9.6 gm/dl (11.8-15.2); Lymphocytes # (Auto) 0.7 K/mm3 (1.2-5.4); Lymphocytes % (Auto) 15.4 % (13.4-35.0); Mean Corpuscular HGB Conc 32 % (32-34); Mean Corpuscular Volume 87 fl (84-94); Monocytes # (Auto) 0.3 K/mm3 (0.0-0.8); Monocytes % (Auto) 6.8 % (0.0-7.3); Platelet Count 120 K/mm3 (140-440); Red Blood Count 3.41 M/mm3 (3.65-5.03)
[2020-12-12 15:20] LABS: Albumin 3.7 g/dL (3.9-5)
[2020-12-12 15:36] LABS: Calcium 5.7 mg/dL (8.4-10.2)
--- NOTE | 2020-12-12 16:28 | Emergency Department Report ---
ED General Adult HPI - General Chief complaint: Medical Clearance Stated complaint: KIDNEY PROBLEMS PUI?: No Source: patient Mode of arrival: Ambulatory Limitations: No Limitations - History of Present Illness Initial comments: 60-year-old male patient with history of diabetes, hypertension, and chronic renal insufficiency presents to the emergency department at the instruction of his end finder twisting department, Dr. Blevins, for further evaluation and management of abnormal labs. Patient states he is unsure exactly which labs were abnormal, but states he was previously hospitalized for hyperkalemia. He is not on dialysis. He is asymptomatic. No pain, no difficulty breathing, no urinary changes. Onset/Timin -: days(s) Associated Symptoms: denies other symptoms - Related Data Home Medications Medication Instructions Recorded Confirmed Last Taken Ferrous Sulfate [Iron 325 MG] 325 mg PO DAILY 05/11/19 05/11/19 05/11/19 08:00 Previous Rx's Medication Instructions Recorded Last Taken Type Aspirin EC [Halfprin EC] 81 mg PO QDAY #30 tablet. 05/13/19 Unknown Rx AtorvaSTATin [Lipitor] 20 mg PO QHS 30 Days #30 05/13/19 05/10/19 Rx Insulin Aspart (Nf) [NovoLOG 5 units SQ AC 30 Days 05/13/19 05/11/19 Rx Flexpen] Insulin Degludec [Tresiba 5 unit SQ QDAY 30 Days 05/13/19 05/11/19 Rx Flextouch U-200] Metoprolol Xl [Metoprolol 100 mg PO QDAY #30 tablet 05/13/19 Unknown Rx SUCCINATE ER TAB] NIFEdipine XL [Procardia Xl] 60 mg PO Q12HR #60 tablet 05/13/19 Unknown Rx hydrALAZINE [Apresoline TAB] 100 mg PO TID #90 tab 05/13/19 Unknown Rx hydroCHLOROthiazide [HCTZ] 25 mg PO QDAY #30 tablet 05/13/19 Unknown Rx Allergies Allergy/AdvReac Type Severity Reaction Status Date / Time No Known Allergies Allergy Unverified 05/09/19 11:44 ED Review of Systems ROS: Stated complaint: KIDNEY PROBLEMS Other details as noted in HPI Comment: All other systems reviewed and negative ED Past Medical Hx - Past Medical History Hx Hypertension: Yes Hx CVA: No Hx Heart Attack/AMI: No Hx Congestive Heart Failure: No Hx Diabetes: Yes Hx Deep Vein Thrombosis: No Hx Pulmonary Embolism: No Hx GERD: No Hx Liver Disease: No Hx Renal Disease: No Hx Sickle Cell Disease: No Hx Arthritis: No Hx Headaches / Migraines: No Hx Seizures: No Hx Kidney Stones: No Hx Psychiatric Treatment: No Hx Asthma: No Hx COPD: No Hx Tuberculosis: No Hx Dementia: No Hx HIV: No Additional medical history: anemia, dyslipidemia - Surgical History Past Surgical History?: Yes Additional Surgical History: Prostatectomy - Social History Smoking Status: Never Smoker Substance Use Type: None - Medications Home Medications: Home Medications Medication Instructions Recorded Confirmed Last Taken Type Ferrous Sulfate [Iron 325 MG] 325 mg PO DAILY 05/11/19 05/11/19 05/11/19 08:00 History Aspirin EC [Halfprin EC] 81 mg PO QDAY #30 tablet. 05/13/19 Unknown Rx AtorvaSTATin [Lipitor] 20 mg PO QHS 30 Days #30 05/13/19 05/11/19 05/10/19 Rx Insulin Aspart (Nf) [NovoLOG 5 units SQ AC 30 Days 05/13/19 05/11/19 05/11/19 Rx Flexpen] Insulin Degludec [Tresiba 5 unit SQ QDAY 30 Days 05/13/19 05/11/19 05/11/19 Rx Flextouch U-200] Metoprolol Xl [Metoprolol 100 mg PO QDAY #30 tablet 05/13/19 Unknown Rx SUCCINATE ER TAB] NIFEdipine XL [Procardia Xl] 60 mg PO Q12HR #60 tablet 05/13/19 Unknown Rx hydrALAZINE [Apresoline TAB] 100 mg PO TID #90 tab 05/13/19 Unknown Rx hydroCHLOROthiazide [HCTZ] 25 mg PO QDAY #30 tablet 05/13/19 Unknown Rx ED Physical Exam - General Limitations: No Limitations General appearance: alert, in no apparent distress - Head Head exam: Present: atraumatic, normocephalic - Eye Eye exam: Present: normal appearance - ENT ENT exam: Present: mucous membranes moist - Neck Neck exam: Present: normal inspection - Respiratory Respiratory exam: Present: normal lung sounds bilaterally. Absent: respiratory distress - Cardiovascular Cardiovascular Exam: Present: regular rate, normal rhythm. Absent: systolic murmur, diastolic murmur, rubs, gallop - GI/Abdominal GI/Abdominal exam: Present: soft, normal bowel sounds - Rectal Rectal exam: Present: deferred - Extremities Exam Extremities exam: Present: normal inspection - Back Exam Back exam: Present: normal inspection - Neurological Exam Neurological exam: Present: alert, oriented X3 - Psychiatric Psychiatric exam: Present: normal affect, normal mood - Skin Skin exam: Present: warm, dry, intact, normal color. Absent: rash ED Course Vital Signs 12/12/20 12:15 Temperature 98.8 F Pulse Rate 91 H Respiratory 16 Rate Blood Pressure 126/68 O2 Sat by Pulse 95 Oximetry - Consultations Consultation #1: 12/12/20 16:18 Spoke with ER attending Dr. Dougherty informed her of patient's abnormal labs. She informed me to talk to end finder twisting department Dr. Blevins Consultation #2: 12/12/20 16:[address] Fan end finder twisting department regarding patient's abnormal labs. He states that the patient is going to need dialysis. He states he would be here at the hospital before 5:00. To be admitted. Consultation #3: 12/12/20 16:[address] Pemberton hospitalist regarding admission. Discussed method that I have already consulted end finder twisting department and they are going to dialysis patient. He needs to be admitted. Dr. Pemberton gave me orders to place bridge orders in. He would like me call him once the patient gets in her room. ED Medical Decision Making - Lab Data Result diagrams: 12/12/20 13:22 12/12/20 13:22 Laboratory Tests 12/12/20 12/12/20 12/12/20 13:22 13:22 14:28 WBC 4.7 RBC 3.41 L Hgb 9.6 L Hct 29.5 L MCV 87 MCH 28 MCHC 32 RDW 14.0 Plt Count 120 L Lymph % (Auto) 15.4 Glenn % (Auto) 6.8 Eos % (Auto) 5.1 H Baso % (Auto) 0.8 Lymph # (Auto) 0.7 L Glenn # (Auto) 0.3 Eos # (Auto) 0.2 Baso # (Auto) 0.0 Seg Neutrophils % 71.9 H Seg Neutrophils # 3.4 VBG pH Sodium 140 Potassium 5.0 Chloride 104.1 Carbon Dioxide 17 L Anion Gap 24 BUN 66 H Creatinine 11.9 H Estimated GFR 5 BUN/Creatinine Ratio 6 Glucose 77 Calcium 5.7 L* Magnesium 1.30 L Total Bilirubin 0.30 AST 10 ALT 12 Alkaline Phosphatase 125 Total Protein 6.7 Albumin 3.7 L Albumin/Globulin Ratio 1.2 12/12/20 14:28 WBC RBC Hgb Hct MCV MCH MCHC RDW Plt Count Lymph % (Auto) Glenn % (Auto) Eos % (Auto) Baso % (Auto) Lymph # (Auto) Glenn # (Auto) Eos # (Auto) Baso # (Auto) Seg Neutrophils % Seg Neutrophils # VBG pH 7.295 L Sodium Potassium Chloride Carbon Dioxide Anion Gap BUN Creatinine Estimated GFR BUN/Creatinine Ratio Glucose Calcium Magnesium Total Bilirubin AST ALT Alkaline Phosphatase Total Protein Albumin Albumin/Globulin Ratio - Medical Decision Making 60-year-old male patient with history of diabetes, hypertension, and chronic renal insufficiency presents to the emergency department at the instruction of his end finder twisting department, Dr. Blevins, for further evaluation and management of abnormal labs. Patient states he is unsure exactly which labs were abnormal, but states he was previously hospitalized for hyperkalemia. He is not on dialysis. He is asymptomatic. No pain, no difficulty breathing, no urinary changes. Critical care attestation.: If time is entered above; I have spent that time in minutes in the direct care of this critically ill patient, excluding procedure time. ED Disposition Condition: Stable Referrals: PRIMARY CARE, [Primary Care Provider] - 3-5 Days
--- NOTE | 2020-12-12 16:56 | XRay Report ---
CHEST 2 VIEWS INDICATION / CLINICAL INFORMATION: esrd. COMPARISON: 05/09/2019 FINDINGS: SUPPORT DEVICES: None. HEART / MEDIASTINUM: Mild cardiomegaly, new when compared to 05/09/2019. Hilar and mediastinal contours demonstrate no significant abnormality. LUNGS / PLEURA: No significant pulmonary or pleural abnormality. No pneumothorax. ADDITIONAL FINDINGS: No significant additional findings. IMPRESSION: 1. Mild cardiomegaly, new when compared to 05/09/2019. No acute pulmonary process. Signer Name: Mihai Hadley MD Signed: 12/12/2020 4:52 PM Workstation Name: [id number]
[2020-12-12] MEDS ORDERED: MAGNESIUM SULFATE 2 GM/50 ML BAG IV ONE (17:10)
[2020-12-12] MEDS ORDERED: CALCIUM GLUCONATE 2,000 MG in SODIUM CHLORIDE 0.9% 100 ML IV ONE (17:10)
--- NOTE | 2020-12-12 17:10 | Consultation ---
History of Present Illness - Reason for Consult Consult date: 12/12/20 end stage renal disease, metabolic acidosis - History of Present Illness The patient is a 60 YO male with history significant for DM type 2, HTN, Obesity, chronic LE edema, Anemia, Diabetic nephropathy, Proteinuria, CKD stage 4 and Medical non-compliance who was sent to [facility] ED for evaluation of worsening renal function. Patient was alst seen at our office in 10/2019 and creatinine was 4.82. He lost follow up since then. Pt had lab test done on 12/10 which resulted with K 6.3, Creat 11.3, Ca 6.2 and bicarb 17. Patient was asked to go to the ER for further evaluation and to initiate hemodialysis. Patient continues to have bilateral leg swelling. He also c/o R leg rash and unsteady gait. Denies N, V, D, abd pain, sob, cp, dizziness, dysuria or hematuria. Lab results noted. Nephrology was consulted for further evaluation. Past History Past Medical History: other (See HPI.) Medications and Allergies Allergies Allergy/AdvReac Type Severity Reaction Status Date / Time No Known Allergies Allergy Unverified 05/09/19 11:44 Home Medications Medication Instructions Recorded Confirmed Last Taken Type Ferrous Sulfate [Iron 325 MG] 325 mg PO DAILY 05/11/19 05/11/19 05/11/19 08:00 History Aspirin EC [Halfprin EC] 81 mg PO QDAY #30 tablet. 05/13/19 Unknown Rx AtorvaSTATin [Lipitor] 20 mg PO QHS 30 Days #30 05/13/19 05/11/19 05/10/19 Rx Insulin Aspart (Nf) [NovoLOG 5 units SQ AC 30 Days 05/13/19 05/11/19 05/11/19 Rx Flexpen] Insulin Degludec [Tresiba 5 unit SQ QDAY 30 Days 05/13/19 05/11/19 05/11/19 Rx Flextouch U-200] Metoprolol Xl [Metoprolol 100 mg PO QDAY #30 tablet 05/13/19 Unknown Rx SUCCINATE ER TAB] NIFEdipine XL [Procardia Xl] 60 mg PO Q12HR #60 tablet 05/13/19 Unknown Rx hydrALAZINE [Apresoline TAB] 100 mg PO TID #90 tab 05/13/19 Unknown Rx hydroCHLOROthiazide [HCTZ] 25 mg PO QDAY #30 tablet 05/13/19 Unknown Rx Review of Systems Constitutional: fatigue, no weight loss, no weight gain, no fever, no chills, no anorexia Eyes: bilateral: blurred vision Cardiovascular: edema, high blood pressure, leg edema, no chest pain, no orthopn ea, no syncope, no lightheadedness, no shortness of breath Respiratory: no cough, no hemoptysis, no shortness of breath Gastrointestinal: no abdominal pain, no nausea, no vomiting Genitourinary Male: no dysuria, no hematuria Rectal: no bleeding Integumentary: no rash Neurological: no paralysis, no weakness, no convulsions, no aphasia, no change in speech, no change in mentation, no confusion, no memory loss Exam - Vital Signs Vital signs: Vital Signs Temp Pulse Resp BP Pulse Ox 98.8 F 91 H 16 126/68 95 12/12/20 12:15 12/12/20 12:15 12/12/20 12:15 12/12/20 12:15 12/12/20 12:15 Results - Lab Results 12/12/20 13:22 12/12/20 13:22 Most recent lab results Calcium 5.7 mg/dL (8.4-10.2) L* 12/12/20 13:22 Magnesium 1.30 mg/dL (1.7-2.3) L 12/12/20 14:28 Assessment and Plan 1. ESRD: CKD has progressed to ESRD. Presented with significantly elevated creatinine level. Avoid nephrotoxic agents. Meds dosage based on GFR. Patient require hemodialysis as CKD progressed to ESRD, associated metabolic alkalosis. D/w patient about the indications, benefits, risks and alternatives involved in hemodialysis. He voiced understanding and gave verbal consent. Vascular consulted for Tunnel dialysis catheter placement. Plan for hemodialysis tomorrow. 2. FEN: Hyperkalemia, improved. Metabolic acidosis, HD. Volume overload, Lasix. UF with HD as tolerated. Monitor lytes and volume status. 3. DM type 2. 4. Hypertension: BP controlled. Monitor. 5. Normochromic anemia, POA: 2/2 ESRD. Epogen was needed. 6. Medical non-compliance: counseled. Subjective: Patient was seen and examined at the bedside. Examination: General appearance: well-developed, well-nourished, appears stated age, no distress HEENT: ATNC, JONATHAN, mucous membranes moist, hearing intact, vision intact Neck: neck supple, trachea midline Respiratory: Clear to Auscultation Heart: regular, S1S2, no murmur Gastrointestinal: soft, normoactive bowel sounds, not tender Integumentary: warm, dry, R leg rash Neurologic: no focal deficit, no asterixis, alert and oriented x3 Ext: bilateral LE edema, L > R Psychiatric: cooperative
[2020-12-12] MEDS ORDERED: FUROSEMIDE 40 MG/4 ML INJ IV SCH (17:30)
--- NOTE | 2020-12-12 21:57 | History and Physical Report ---
History of Present Illness Date of examination: 12/12/20 Date of admission: 12/12/20 16:13 Chief complaint: High creatine level History of present illness: 60-year-old male patient with history of diabetes, hypertension, and chronic renal insufficiency presents to the emergency department at the instruction of his heel brusher, Dr. Blevins, for further evaluation and management of abnormal labs. Patient states he is unsure exactly which labs were abnormal, but states he was previously hospitalized for hyperkalemia. He is not on dialysis. He is asymptomatic. No pain, no difficulty breathing, no urinary changes. - Past Medical History --Hypertension: Yes -- Diabetes: Yes Additional medical history: anemia, dyslipidemia - Surgical History Past Surgical History?: Yes Additional Surgical History: Prostatectomy - Social History Smoking Status: Never Smoker Substance Use Type: None Family History Htn - Medications Home Medications: Home Medications Medication Instructions Recorded Confirmed Last Taken Type Ferrous Sulfate [Iron 325 MG] 325 mg PO DAILY 05/11/19 05/11/19 05/11/19 08:00 History Aspirin EC [Halfprin EC] 81 mg PO QDAY #30 tablet. 05/13/19 Unknown Rx AtorvaSTATin [Lipitor] 20 mg PO QHS 30 Days #30 05/13/19 05/11/19 05/10/19 Rx Insulin Aspart (Nf) [NovoLOG 5 units SQ AC 30 Days 05/13/19 05/11/19 05/11/19 Rx Flexpen] Insulin Degludec [Tresiba 5 unit SQ QDAY 30 Days 05/13/19 05/11/19 05/11/19 Rx Flextouch U-200] Metoprolol Xl [Metoprolol 100 mg PO QDAY #30 tablet 05/13/19 Unknown Rx SUCCINATE ER TAB] NIFEdipine XL [Procardia Xl] 60 mg PO Q12HR #60 tablet 05/13/19 Unknown Rx hydrALAZINE [Apresoline TAB] 100 mg PO TID #90 tab 05/13/19 Unknown Rx hydroCHLOROthiazide [HCTZ] 25 mg PO QDAY #30 tablet 05/13/19 Unknown Rx Review of Systems ROS: Stated complaint: KIDNEY PROBLEMS Other details as noted in HPI Comment: All other systems reviewed and negative Past History Past Medical History: other (See HPI.) Medications and Allergies Allergies Allergy/AdvReac Type Severity Reaction Status Date / Time No Known Allergies Allergy Unverified 05/09/19 11:44 Home Medications Medication Instructions Recorded Confirmed Last Taken Type Ferrous Sulfate [Iron 325 MG] 325 mg PO DAILY 05/11/19 12/13/20 12/12/20 History Aspirin EC [Halfprin EC] 81 mg PO QDAY #30 tablet. 05/13/19 12/13/20 12/12/20 Rx AtorvaSTATin [Lipitor] 20 mg PO QHS 30 Days #30 05/13/19 12/13/20 12/12/20 Rx Insulin Aspart (Nf) [NovoLOG 5 units SQ AC 30 Days 05/13/19 12/13/20 05/11/19 Rx Flexpen] Insulin Degludec [Tresiba 5 unit SQ QDAY 30 Days 05/13/19 12/13/20 12/12/20 Rx Flextouch U-200] Metoprolol Xl [Metoprolol 100 mg PO QDAY #30 tablet 05/13/19 12/13/20 12/12/20 Rx SUCCINATE ER TAB] NIFEdipine XL [Procardia Xl] 60 mg PO Q12HR #60 tablet 05/13/19 12/13/20 12/12/20 Rx hydrALAZINE [Apresoline TAB] 100 mg PO TID #90 tab 05/13/19 12/13/20 12/12/20 Rx hydroCHLOROthiazide [HCTZ] 25 mg PO QDAY #30 tablet 05/13/19 12/13/20 12/12/20 Rx Exam - Constitutional Vitals: Temp Pulse Resp BP Pulse Ox 97.9 F 92 H 20 145/76 99 12/12/20 21:16 12/12/20 21:16 12/12/20 21:16 12/12/20 21:16 12/12/20 21:16 HEART Score - HEART Score History: Moderately suspicious Age: 45-65 Risk factors: > 3 risk factors or hx of atherosclerotic disease Troponin: 1-3x normal limit - Critical Actions Critical Actions: 0-3 pts:0.9-1.7%risk of adverse cardiac event.Candidate for discharge Results - Labs CBC & Chem 7: 12/12/20 13:22 12/13/20 04:57 Labs: Laboratory Last Values WBC 4.7 K/mm3 (4.5-11.0) 12/12/20 13:22 RBC 3.41 M/mm3 (3.65-5.03) L 12/12/20 13:22 Hgb 9.6 gm/dl (11.8-15.2) L 12/12/20 13:22 Hct 29.5 % (35.5-45.6) L 12/12/20 13:22 MCV 87 fl (84-94) 12/12/20 13:22 MCH 28 pg (28-32) 12/12/20 13:22 MCHC 32 % (32-34) 12/12/20 13:22 RDW 14.0 % (13.2-15.2) 12/12/20 13:22 Plt Count 120 K/mm3 (140-440) L 12/12/20 13:22 Lymph % (Auto) 15.4 % (13.4-35.0) 12/12/20 13:22 [place] % (Auto) 6.8 % (0.0-7.3) 12/12/20 13:22 Eos % (Auto) 5.1 % (0.0-4.3) H 12/12/20 13:22 Baso % (Auto) 0.8 % (0.0-1.8) 12/12/20 13:22 Lymph # (Auto) 0.7 K/mm3 (1.2-5.4) L 12/12/20 13:22 [place] # (Auto) 0.3 K/mm3 (0.0-0.8) 12/12/20 13:22 Eos # (Auto) 0.2 K/mm3 (0.0-0.4) 12/12/20 13:22 Baso # (Auto) 0.0 K/mm3 (0.0-0.1) 12/12/20 13:22 Seg Neutrophils % 71.9 % (40.0-70.0) H 12/12/20 13:22 Seg Neutrophils # 3.4 K/mm3 (1.8-7.7) 12/12/20 13:22 VBG pH 7.295 (7.320-7.420) L 12/12/20 14:28 Sodium 140 mmol/L (137-145) 12/12/20 13:22 Potassium 5.0 mmol/L (3.6-5.0) 12/12/20 13:22 Chloride 104.1 mmol/L (98-107) 12/12/20 13:22 Carbon Dioxide 17 mmol/L (22-30) L 12/12/20 13:22 Anion Gap 24 mmol/L 12/12/20 13:22 BUN 66 mg/dL (9-20) H 12/12/20 13:22 Creatinine 11.9 mg/dL (0.8-1.3) H 12/12/20 13:22 Estimated GFR 5 ml/min 12/12/20 13:22 BUN/Creatinine Ratio 6 % 12/12/20 13:22 Glucose 77 mg/dL (75-100) 12/12/20 13:22 Calcium 5.7 mg/dL (8.4-10.2) L* 12/12/20 13:22 Magnesium 1.30 mg/dL (1.7-2.3) L 12/12/20 14:28 Total Bilirubin 0.30 mg/dL (0.1-1.2) 12/12/20 13:22 AST 10 units/L (5-40) 12/12/20 13:22 ALT 12 units/L (7-56) 12/12/20 13:22 Alkaline Phosphatase 125 units/L (35-129) 12/12/20 13:22 Total Protein 6.7 g/dL (6.3-8.2) 12/12/20 13:22 Albumin 3.7 g/dL (3.9-5) L 12/12/20 13:22 Albumin/Globulin Ratio 1.2 % 12/12/20 13:22 - Imaging and Cardiology EKG: report reviewed Chest x-ray: report reviewed (Mild Cardiomegaly) Assessment and Plan Assessment and plan: #1) End-stage renal disease with uremia Not on dialysis before Needs Vas-Cath and hemodialysis We will keep him n.p.o. from midnight vascular Vascular surgery consult requested Nephrology consult requested #2 hypertension Antihypertensives initiated #3 insulin-dependent diabetes Check hemoglobin A1c Coverage Continue home insulin Advance Directives: Yes (Full code) VTE prophylaxis?: Chemical Plan of care discussed with patient/family: Yes - Patient Problems (1) Uremia Current Visit: Yes Status: Acute Plan to address problem: Secondary to ESRD (2) ESRD needing dialysis Current Visit: Yes Status: Acute Plan to address problem: Never had HD Needs Vascatjuan manuel and HD ent by Dr Blevins (3) IDDM (insulin dependent diabetes mellitus) Current Visit: Yes Status: Chronic Plan to address problem: Cont home insulin and coverage (4) HLD (hyperlipidemia) Current Visit: Yes Status: Chronic Qualifiers: Hyperlipidemia type: mixed hyperlipidemia Qualified Code(s): E78.2 - Mixed hyperlipidemia Plan to address problem: Cnt statins (5) HTN (hypertension) Current Visit: Yes Status: Chronic Qualifiers: Hypertension type: essential hypertension Qualified Code(s): I10 - Essential (primary) hypertension Plan to address problem: Cont antihypertensives and adjust meds (6) Anemia Current Visit: Yes Status: Chronic Qualifiers: Anemia type: due to chronic kidney disease Chronic kidney disease stage: stage 5, not on chronic dialysis Qualified Code(s): N18.5 - Chronic kidney disease, stage 5; D63.1 - Anemia in chronic kidney disease Plan to address problem: Sec to CKD Will defer to Nephrology (7) Hypocalcemia Current Visit: Yes Status: Acute Plan to address problem: Supplemented May need calcitrion (8) Hypomagnesemia Current Visit: Yes Status: Acute Plan to address problem: Supplemented (9) DVT prophylaxis Current Visit: No Status: Acute Plan to address problem: On Heparin
[2020-12-12] MEDS: NIFEdipine XL 60 MG TAB PO SCH (23:29)
[2020-12-13 06:18] LABS: Hepatitis B Surface Antigen Non-Reactive (Negative); Hepatitis C Virus Antibody Non-Reactive (NonReactive)
[2020-12-13 06:20] LABS: Calcium 5.6 mg/dL (8.4-10.2)
[2020-12-13] MEDS ORDERED: CALCIUM GLUCONATE 2,000 MG in SODIUM CHLORIDE 0.9% 100 ML IV ONE ×2 (06:23→07:19)
[2020-12-13] MEDS ORDERED: MAGNESIUM SULFATE 2 GM/50 ML BAG IV ONE (07:20)
[2020-12-13] MEDS ORDERED: NON-FORMULARY EACH (Insulin Aspart (Nf) 100 UNIT/ML Insuln.Pen) SQ SCH (07:30)
[2020-12-13] MEDS: INSULIN LISPRO 100 UNIT/ML SUB-Q SCH ×3 (08:11→16:25)
[2020-12-13] MEDS ORDERED: SODIUM CHLORIDE 0.9% 100 ML IV PRN (08:14)
[2020-12-13] MEDS ORDERED: HEPARIN 10,000 UNITS/10 ML VIAL IV PRN (08:14)
[2020-12-13] MEDS ORDERED: HEPARIN/NS 5000 UNIT/500ML 1,000 ML IR ONE (09:27)
[2020-12-13] MEDS ORDERED: fentaNYL 100 MCG/2 ML INJ ONE (09:28)
[2020-12-13] MEDS ORDERED: MIDAZOLAM 2 MG/2 ML INJ ONE (09:28)
[2020-12-13] MEDS ORDERED: HEPARIN 10,000 UNITS/10 ML VIAL ONE (09:28)
[2020-12-13] MEDS ORDERED: SODIUM CHLORIDE 0.9% 250ML 250 ML ONE (09:28)
[2020-12-13] MEDS ORDERED: ceFAZolin/Water 2 GM/20 ML 2 GM/20 ML SYRINGE IV ONE (09:29)
--- NOTE | 2020-12-13 09:30 | Consultation ---
History of Present Illness - Reason for Consult Consult date: 12/13/20 Permacath Insertion Requesting physician: HARRIS HERNANDEZ - History of Present Illness The patient is a 60 year old male with a history of diabetes, hypertension, and chronic renal insufficiency who was sent to the emergency department by his cigar bander secondary to worsening of his renal failure. He had been watched for some time but had not progressed to end-stage renal disease and is not yet on hemodialysis. He has no complaints at this time. Past History Past Medical History: diabetes, hypertension, hyperlipidemia, renal failure Past Surgical History: No surgical history Social history: no significant social history Medications and Allergies Allergies Allergy/AdvReac Type Severity Reaction Status Date / Time No Known Allergies Allergy Unverified 05/09/19 11:44 Home Medications Medication Instructions Recorded Confirmed Last Taken Type Ferrous Sulfate [Iron 325 MG] 325 mg PO DAILY 05/11/19 12/13/20 12/12/20 History Aspirin EC [Halfprin EC] 81 mg PO QDAY #30 tablet. 05/13/19 12/13/20 12/12/20 Rx AtorvaSTATin [Lipitor] 20 mg PO QHS 30 Days #30 05/13/19 12/13/20 12/12/20 Rx Insulin Aspart (Nf) [NovoLOG 5 units SQ AC 30 Days 05/13/19 12/13/20 05/11/19 Rx Flexpen] Insulin Degludec [Tresiba 5 unit SQ QDAY 30 Days 05/13/19 12/13/20 12/12/20 Rx Flextouch U-200] Metoprolol Xl [Metoprolol 100 mg PO QDAY #30 tablet 05/13/19 12/13/20 12/12/20 Rx SUCCINATE ER TAB] NIFEdipine XL [Procardia Xl] 60 mg PO Q12HR #60 tablet 05/13/19 12/13/20 12/12/20 Rx hydrALAZINE [Apresoline TAB] 100 mg PO TID #90 tab 05/13/19 12/13/20 12/12/20 Rx hydroCHLOROthiazide [HCTZ] 25 mg PO QDAY #30 tablet 05/13/19 12/13/20 12/12/20 Rx Active Meds: Active Medications Aspirin (Aspirin Ec 81 Mg Tab) 81 mg PO QDAY [facility] Atorvastatin Calcium (Atorvastatin 20 Mg Tab) 20 mg PO QHS [facility] Calcium Acetate (Calcium Acetate 667 Mg Cap) 1,334 mg PO TID [facility] Ferrous Sulfate (Ferrous Sulfate 325 Mg Tab) 325 mg PO DAILY [facility] Heparin Sodium (Porcine) (Heparin 10,000 Units/10 Ml Vial) 3,000 unit IV RIVER PRN PRN Reason: hemodialysis Hydralazine HCl (Hydralazine 100 Mg Tab) 100 mg PO TID [facility] Hydrochlorothiazide (Hydrochlorothiazide 25 Mg Tab) 25 mg PO QDAY [facility] Sodium Chloride (Nacl 0.9%) 100 mls @ 999 mls/hr IV RIVER PRN PRN Reason: Hypotension Insulin Glargine (Insulin Glargine 100 Units/Ml) 10 units SUB-Q QDAY [facility] Insulin Human Lispro (Insulin Lispro 100 Unit/Ml) 5 unit SUB-Q AC [facility] Last Admin: 12/13/20 08:11 Dose: Not Given Documented by: Metoprolol Succinate (Metoprolol Succinate Xl 100 Mg Tab) 100 mg PO QDAY [facility] Multivitamins/Minerals (Calcium Carb/Vit D3/Minerals 600 Mg/800 Units Tab) 1 each PO BID [facility] Nifedipine (Nifedipine Xl 60 Mg Tab) 60 mg PO Q12HR [facility] Last Admin: 12/12/20 23:29 Dose: 60 mg Documented by: Review of Systems All systems: negative Exam - Constitutional Vitals: Temp Pulse Resp BP Pulse Ox 97.8 F 91 H 18 148/78 98 12/12/20 23:51 12/13/20 06:00 12/12/20 23:51 12/12/20 23:51 12/12/20 23:51 General appearance: Present: no acute distress - Neck Neck: Present: supple - Respiratory Respiratory effort: normal - Cardiovascular Rhythm: regular - Extremities Extremities: no ischemia, pulses intact - Abdominal General gastrointestinal: Present: soft Male genitourinary: Present: deferred - Rectal Rectal Exam: deferred Results - Labs CBC & Chem 7: 12/12/20 13:22 12/13/20 04:57 Labs: Abnormal lab results 12/12/20 12/12/20 12/12/20 Range/Units 13:22 13:22 14:28 RBC 3.41 L (3.65-5.03) M/mm3 Hgb 9.6 L (11.8-15.2) gm/dl Hct 29.5 L (35.5-45.6) % Plt Count 120 L (140-440) K/mm3 Eos % (Auto) 5.1 H (0.0-4.3) % Lymph # (Auto) 0.7 L (1.2-5.4) K/mm3 Seg Neutrophils % 71.9 H (40.0-70.0) % VBG pH (7.320-7.420) Carbon Dioxide 17 L (22-30) mmol/L BUN 66 H (9-20) mg/dL Creatinine 11.9 H (0.8-1.3) mg/dL Glucose (75-100) mg/dL POC Glucose (70-105) mg/dL Calcium 5.7 L* (8.4-10.2) mg/dL Phosphorus (2.5-4.5) mg/dL Magnesium 1.30 L (1.7-2.3) mg/dL Albumin 3.7 L (3.9-5) g/dL 12/12/20 12/13/20 12/13/20 Range/Units 14:28 04:57 07:35 RBC (3.65-5.03) M/mm3 Hgb (11.8-15.2) gm/dl Hct (35.5-45.6) % Plt Count (140-440) K/mm3 Eos % (Auto) (0.0-4.3) % Lymph # (Auto) (1.2-5.4) K/mm3 Seg Neutrophils % (40.0-70.0) % VBG pH 7.295 L (7.320-7.420) Carbon Dioxide 19 L (22-30) mmol/L BUN 69 H (9-20) mg/dL Creatinine 12.0 H (0.8-1.3) mg/dL Glucose 130 H (75-100) mg/dL POC Glucose 118 H (70-105) mg/dL Calcium 5.6 L* (8.4-10.2) mg/dL Phosphorus 7.00 H (2.5-4.5) mg/dL Magnesium 1.60 L (1.7-2.3) mg/dL Albumin (3.9-5) g/dL Assessment and Plan The patient is a 60-year-old male who presented to the emergency department with progression of his chronic renal insufficiency to end-stage renal disease. He is in need of the initiation of hemodialysis and requires a permacath for access. He has been given the risk, benefits, and alternative procedures and consented to the procedure. A permacath will be placed today. I will also order vein mapping in anticipation of the creation of long-term dialysis access.
[2020-12-13] MEDS ORDERED: INSULN SQ SCH (10:00)
[2020-12-13] MEDS ORDERED: INSULIN DEGLUDEC 200 UNIT/ML SQ SCH (10:00)
[2020-12-13] MEDS: LIDOCAINE (2%) 20 MG/1 ML VIAL 20 ML MDV INFILTRATI ONE ×2 (10:07→10:14)
--- NOTE | 2020-12-13 10:34 | Operative Report ---
Operative Report Operative Report: Date of procedure: 12/13/2020 Pre-operative diagnosis: Acute on Chronic Renal Failure Post-operative diagnosis: Same Procedure(s): 1. Ultrasound-Guided Access Right Internal Vein 2. Placement of 23 cm GlidePath Permacath 3. Radiologic Supervision with Interpretation 4. Monitored Moderate Sedation (Total Anesthesia Time: 25 Minutes) Surgeon: Idris Ba MD Die Storage Clerk: None Anesthesia: Local/Monitored Moderate Sedation Total Anesthesia Time: 25 Minutes EBL: Minimal Counts: Correct Complications: None Condition: Stable Findings: Successful placement of right IJ permacath with the distal tip in the right atrium and no evidence of pneumothorax at the completion of the case. Specimen: None Indication: The patient is a 60-year-old male with a history of chronic renal insufficiency who was sent to the emergency department, by his sccm administrator, after his labs revealed that he had progressed to the need for hemodialysis. He is in need of a permacath for dialysis access. He has been given the risk, benefits, and alternative procedures and consented to the procedure. Description of Procedure: The patient was brought to the test lab technician and laid in supine position and the right neck and chest were prepped and draped in normal sterile fashion. Ultrasound was used to identify the right internal jugular vein and the overlying skin and soft tissue was anesthetized with lidocaine. An 11 blade was used to make a small stab incision and a 21-gauge micropuncture needle was used with ultrasound guidance to enter the right internal jugular vein. A 0.018 micropuncture wire was advanced into the inferior vena cava under fluoroscopy and after removing the needle the micropuncture sheath was advanced into the internal jugular vein by Seldinger technique. The wire and inner cannula were removed and a 0.035 J-wire was advanced into the inferior vena cava under direct fluoroscopic visualization. The tract was serially dilated up to a 16 Indian peel-away safety sheath. An exit site on the chest was then chosen and the presumed tunnel was anesthetized with lidocaine. A small stab incision was made on the chest and then the permacath was connected to the tunneler and pulled antegrade through the tunnel. The J-wire and inner cannula from the SafeSheath were removed and the catheter was inserted into the safe sheath. The safe sheath was then peeled away while advancing the catheter. The catheter was positioned under fluoroscopy with the distal tip in the right atrium. Once in adequate position, both ports were aspirated, flushed, and primed with the appropriate amount of heparin. The neck incision was then closed with 4-0 Monocryl in interrupted subcuticular fashion and dressed with Dermabond. The permacath was secured in place with a 2-0 Ethilon in interrupted fashion and dressed with a sterile dressing. Final fluoroscopy demonstrated the catheter was in adequate position with the distal tip in the right atrium and no evidence of pneumothorax. The patient tolerated the procedure well. All sponge, needle, and instrument counts were correct. The patient was taken to recovery in stable condition.
[2020-12-13] MEDS: METOPROLOL SUCCINATE XL 100 MG TAB PO SCH (10:55)
[2020-12-13] MEDS: FERROUS SULFATE 325 MG TAB PO SCH (10:56)
[2020-12-13] MEDS: CALCIUM CARB/VIT D3/MINERALS 600 MG/800 UNITS TAB PO SCH ×2 (10:56→21:25)
[2020-12-13] MEDS: hydroCHLOROthiazide 25 MG TAB PO SCH (10:56)
[2020-12-13] MEDS: NIFEdipine XL 60 MG TAB PO SCH ×2 (10:56→21:25)
[2020-12-13] MEDS: ASPIRIN EC 81 MG TAB PO SCH (10:56)
[2020-12-13] MEDS: INSULIN GLARGINE 100 UNITS/ML SUB-Q SCH (10:56)
[2020-12-13] MEDS: hydrALAZINE 100 MG TAB PO SCH ×3 (10:56→21:25)
[2020-12-13] MEDS: EPOETIN ALFA-EPBX 10,000 UNIT/1 ML VIAL SUB-Q PRN (12:15)
--- NOTE | 2020-12-13 12:46 | Progress Note ---
Assessment and Plan Assessment and plan: Abnormal labs, PMD sent to ER for dialysis --Chronic kidney disease progressed to ESRD Current Visit: Yes Status: Acute Nephrology evaluated the patient Recommend immediate dialysis Vas-Cath placed, hemodialysis today. Case management to assist with outpatient HD scheduling -- IDDM (insulin dependent diabetes mellitus) Current Visit: Yes Status: Chronic Accu-Chek sliding scale coverage ADA diet Long-acting insulin as needed, follow A1c --HLD (hyperlipidemia) Current Visit: Yes Status: Chronic Continue statin, low-cholesterol diet -- HTN (hypertension) Current Visit: Yes Status: Chronic Cont antihypertensives and adjust meds --Anemia Current Visit: Yes Status: Chronic Sec to CKD, closely monitor H&H Transfuse as needed, Procrit during hemodialysis -- Hypocalcemia Current Visit: Yes Status: Acute Supplemented May need calcitrion --Hypomagnesemia Current Visit: Yes Status: Acute Supplemented. --Obesity; BMI 32.7 Current Visit: Yes Status: Acute Advised weight reduction when medically stable -- DVT prophylaxis Current Visit: No Status: Acute On Heparin We will closely monitor the patient and adjust management as needed he will Consult evaluation and recommendations and noted History Interval history: I have seen and examined the patient this morning at the bedside Patient was sent to the emergency room with abnormal values of very high creatinine Chronic kidney disease transformed to end-stage renal disease requiring dialysis Patient is scheduled for Vas-Cath placement and dialysis this morning Patient has no new complaints except for mild shortness of breath Vital signs noted Hospitalist Physical - Constitutional Vitals: Temp Pulse Resp BP Pulse Ox 97.8 F 81 17 148/78 100 12/12/20 23:51 12/13/20 08:14 12/13/20 08:00 12/12/20 23:51 12/13/20 08:00 General appearance: Present: no acute distress, well-nourished - EENT Eyes: Present: PERRL, EOM intact - Neck Neck: Present: supple, normal ROM - Respiratory Respiratory effort: normal Respiratory: bilateral: diminished, negative: rales, rhonchi, wheezing - Cardiovascular Rhythm: regular Heart Sounds: Present: S1 & S2 - Extremities Extremities: no ischemia, No edema - Abdominal General gastrointestinal: soft, non-tender, non-distended, normal bowel sounds - Integumentary Integumentary: Present: clear, warm - Psychiatric Psychiatric: appropriate mood/affect, cooperative - Neurologic Neurologic: CNII-XII intact, moves all extremities HEART Score - HEART Score Age: 45-65 Risk factors: > 3 risk factors or hx of atherosclerotic disease Troponin: 1-3x normal limit - Critical Actions Critical Actions: 0-3 pts:0.9-1.7%risk of adverse cardiac event.Candidate for discharge Results - Labs CBC & Chem 7: 12/12/20 13:22 12/13/20 04:57 Labs: Laboratory Last Values WBC 4.7 K/mm3 (4.5-11.0) 12/12/20 13:22 RBC 3.41 M/mm3 (3.65-5.03) L 12/12/20 13:22 Hgb 9.6 gm/dl (11.8-15.2) L 12/12/20 13:22 Hct 29.5 % (35.5-45.6) L 12/12/20 13:22 MCV 87 fl (84-94) 12/12/20 13:22 MCH 28 pg (28-32) 12/12/20 13:22 MCHC 32 % (32-34) 12/12/20 13:22 RDW 14.0 % (13.2-15.2) 12/12/20 13:22 Plt Count 120 K/mm3 (140-440) L 12/12/20 13:22 Lymph % (Auto) 15.4 % (13.4-35.0) 12/12/20 13:22 [place] % (Auto) 6.8 % (0.0-7.3) 12/12/20 13:22 Eos % (Auto) 5.1 % (0.0-4.3) H 12/12/20 13:22 Baso % (Auto) 0.8 % (0.0-1.8) 12/12/20 13:22 Lymph # (Auto) 0.7 K/mm3 (1.2-5.4) L 12/12/20 13:22 [place] # (Auto) 0.3 K/mm3 (0.0-0.8) 12/12/20 13:22 Eos # (Auto) 0.2 K/mm3 (0.0-0.4) 12/12/20 13:22 Baso # (Auto) 0.0 K/mm3 (0.0-0.1) 12/12/20 13:22 Seg Neutrophils % 71.9 % (40.0-70.0) H 12/12/20 13:22 Seg Neutrophils # 3.4 K/mm3 (1.8-7.7) 12/12/20 13:22 VBG pH 7.295 (7.320-7.420) L 12/12/20 14:28 Sodium 143 mmol/L (137-145) 12/13/20 04:57 Potassium 4.5 mmol/L (3.6-5.0) 12/13/20 04:57 Chloride 106.8 mmol/L (98-107) 12/13/20 04:57 Carbon Dioxide 19 mmol/L (22-30) L 12/13/20 04:57 Anion Gap 22 mmol/L 12/13/20 04:57 BUN 69 mg/dL (9-20) H 12/13/20 04:57 Creatinine 12.0 mg/dL (0.8-1.3) H 12/13/20 04:57 Estimated GFR 5 ml/min 12/13/20 04:57 BUN/Creatinine Ratio 6 % 12/13/20 04:57 Glucose 130 mg/dL (75-100) H 12/13/20 04:57 POC Glucose 118 mg/dL (70-105) H 12/13/20 07:35 Calcium 5.6 mg/dL (8.4-10.2) L* 12/13/20 04:57 Phosphorus 7.00 mg/dL (2.5-4.5) H 12/13/20 04:57 Magnesium 1.60 mg/dL (1.7-2.3) L 12/13/20 04:57 Total Bilirubin 0.30 mg/dL (0.1-1.2) 12/12/20 13:22 AST 10 units/L (5-40) 12/12/20 13:22 ALT 12 units/L (7-56) 12/12/20 13:22 Alkaline Phosphatase 125 units/L (35-129) 12/12/20 13:22 Total Protein 6.7 g/dL (6.3-8.2) 12/12/20 13:22 Albumin 3.7 g/dL (3.9-5) L 12/12/20 13:22 Albumin/Globulin Ratio 1.2 % 12/12/20 13:22 Hepatitis A IgM Ab Non-reactive (NonReactive) 12/13/20 04:57 Hep Bs Antigen Non-reactive (Negative) 12/13/20 04:57 Hep B Core IgM Ab Non-reactive (NonReactive) 12/13/20 04:57 Hepatitis C Antibody Non-reactive (NonReactive) 12/13/20 04:57 Rosen/IV: Voiding Method Toilet Active Medications - Current Medications Current Medications: Generic Name Dose Route Start Last Admin Trade Name Freq PRN Reason Stop Dose Admin Aspirin 81 mg 12/13/20 10:00 12/13/20 10:56 Aspirin Ec 81 Mg Tab PO Not Given QDAY [facility] Atorvastatin Calcium 20 mg 12/13/20 22:00 Atorvastatin 20 Mg Tab PO QHS [facility] Calcium Acetate 1,334 mg 12/13/20 14:00 Calcium Acetate 667 Mg Cap PO TID [facility] Ferrous Sulfate 325 mg 12/13/20 10:00 12/13/20 10:56 Ferrous Sulfate 325 Mg Tab PO Not Given DAILY [facility] Heparin Sodium (Porcine) 3,000 unit 12/13/20 08:14 Heparin 10,000 Units/10 Ml Vial IV RIVER PRN hemodialysis Hydralazine HCl 100 mg 12/13/20 08:00 12/13/20 10:56 Hydralazine 100 Mg Tab PO Not Given TID [facility] Hydrochlorothiazide 25 mg 12/13/20 10:00 12/13/20 10:56 Hydrochlorothiazide 25 Mg Tab PO Not Given QDAY [facility] Sodium Chloride 100 mls @ 999 mls/hr 12/13/20 08:14 Nacl 0.9% IV [place] PRN Hypotension Insulin Glargine 10 units 12/13/20 10:00 12/13/20 10:56 Insulin Glargine 100 Units/Ml SUB-Q Not Given QDAY [facility] Insulin Human Lispro 5 unit 12/13/20 07:30 12/13/20 08:11 Insulin Lispro 100 Unit/Ml SUB-Q Not Given [facility] Metoprolol Succinate 100 mg 12/13/20 10:00 12/13/20 10:55 Metoprolol Succinate Xl 100 Mg Tab PO Not Given QDAY [facility] Multivitamins/Minerals 1 each 12/13/20 10:00 12/13/20 10:56 Calcium Carb/Vit D3/Minerals 600 Mg/800 Units Tab PO Not Given BID [facility] Nifedipine 60 mg 12/12/20 23:00 12/13/20 10:56 Nifedipine Xl 60 Mg Tab PO Not Given Q12HR [facility]
--- NOTE | 2020-12-13 12:56 | Progress Note ---
Assessment and Plan 1. ESRD: CKD has progressed to ESRD. Presented with significantly elevated creatinine level. Avoid nephrotoxic agents. Meds dosage based on GFR. Patient was started on hemodialysis as CKD progressed to ESRD and associated metabolic acidosis. D/w patient (12/12) about the indications, benefits, risks and alternatives involved in hemodialysis. He voiced understanding and gave verbal consent. Hemodialysis: 12/12, 12/13. 2. FEN: Hyperkalemia, improved. Metabolic acidosis, on HD. Volume overload, UF with HD as tolerated. Monitor lytes and volume status. 3. DM type 2. 4. Hypertension: BP controlled. Monitor. 5. Normochromic anemia, POA: 2/2 ESRD. Epogen as needed. 6. Medical non-compliance: Counseled. Subjective: Patient was seen and examined at the bedside. Doing ok. Examination: General appearance: well-developed, well-nourished, appears stated age, no distress HEENT: ATNC, JONATHAN, mucous membranes moist, hearing intact, vision intact Neck: neck supple, trachea midline Respiratory: Clear to Auscultation Heart: regular, S1S2, no murmur Gastrointestinal: soft, normoactive bowel sounds, not tender Integumentary: warm, dry, R leg rash Neurologic: no focal deficit, no asterixis, alert and oriented x3 Ext: 1 to 2+ bilateral LE edema, L > R Psychiatric: cooperative Hemodialysis access: R IJ tunnel catheter Subjective Date of service: 12/13/20 Objective - Vital Signs Vital signs: Vital Signs - 12hr 12/13/20 12/13/20 12/13/20 06:00 08:00 08:14 Pulse Rate 91 H 81 Pulse Rate [ 79 Left Radial] Pulse Rate [ 79 Right Radial] Respiratory 17 Rate O2 Sat by Pulse 100 Oximetry - Lab 12/12/20 13:22 12/13/20 04:57 Most recent lab results Calcium 5.6 mg/dL (8.4-10.2) L* 12/13/20 04:57 Phosphorus 7.00 mg/dL (2.5-4.5) H 12/13/20 04:57 Magnesium 1.60 mg/dL (1.7-2.3) L 12/13/20 04:57 Medications & Allergies - Medications Allergies/Adverse Reactions: Allergies No Known Allergies Allergy (Unverified 05/09/19 11:44) Home Medications: Home Medications Medication Instructions Recorded Confirmed Last Taken Type Ferrous Sulfate [Iron 325 MG] 325 mg PO DAILY 05/11/19 12/13/20 12/12/20 History Aspirin EC [Halfprin EC] 81 mg PO QDAY #30 tablet. 05/13/19 12/13/20 12/12/20 Rx AtorvaSTATin [Lipitor] 20 mg PO QHS 30 Days #30 05/13/19 12/13/20 12/12/20 Rx Insulin Aspart (Nf) [NovoLOG 5 units SQ AC 30 Days 05/13/19 12/13/20 05/11/19 Rx Flexpen] Insulin Degludec [Tresiba 5 unit SQ QDAY 30 Days 05/13/19 12/13/20 12/12/20 Rx Flextouch U-200] Metoprolol Xl [Metoprolol 100 mg PO QDAY #30 tablet 05/13/19 12/13/20 12/12/20 Rx SUCCINATE ER TAB] NIFEdipine XL [Procardia Xl] 60 mg PO Q12HR #60 tablet 05/13/19 12/13/20 12/12/20 Rx hydrALAZINE [Apresoline TAB] 100 mg PO TID #90 tab 05/13/19 12/13/20 12/12/20 Rx hydroCHLOROthiazide [HCTZ] 25 mg PO QDAY #30 tablet 05/13/19 12/13/20 12/12/20 Rx Active Medications: Generic Name Dose Route Start Last Admin Trade Name Freq PRN Reason Stop Dose Admin Aspirin 81 mg 12/13/20 10:00 12/13/20 10:56 Aspirin Ec 81 Mg Tab PO Not Given QDAY [facility] Atorvastatin Calcium 20 mg 12/13/20 22:00 Atorvastatin 20 Mg Tab PO QHS [facility] Calcium Acetate 1,334 mg 12/13/20 14:00 Calcium Acetate 667 Mg Cap PO TID [facility] Ferrous Sulfate 325 mg 12/13/20 10:00 12/13/20 10:56 Ferrous Sulfate 325 Mg Tab PO Not Given DAILY [facility] Heparin Sodium (Porcine) 3,000 unit 12/13/20 08:14 Heparin 10,000 Units/10 Ml Vial IV RIVER PRN hemodialysis Hydralazine HCl 100 mg 12/13/20 08:00 12/13/20 10:56 Hydralazine 100 Mg Tab PO Not Given TID [facility] Hydrochlorothiazide 25 mg 12/13/20 10:00 12/13/20 10:56 Hydrochlorothiazide 25 Mg Tab PO Not Given QDAY [facility] Sodium Chloride 100 mls @ 999 mls/hr 12/13/20 08:14 Nacl 0.9% [facility] PRN Hypotension Insulin Glargine 10 units 12/13/20 10:00 12/13/20 10:56 Insulin Glargine 100 Units/Ml SUB-Q Not Given QDAY [facility] Insulin Human Lispro 5 unit 12/13/20 07:30 12/13/20 12:43 Insulin Lispro 100 Unit/Ml SUB-Q Not Given [facility] Metoprolol Succinate 100 mg 12/13/20 10:00 12/13/20 10:55 Metoprolol Succinate Xl 100 Mg Tab PO Not Given QDAY [facility] Multivitamins/Minerals 1 each 12/13/20 10:00 12/13/20 10:56 Calcium Carb/Vit D3/Minerals 600 Mg/800 Units Tab PO Not Given BID [facility] Nifedipine 60 mg 12/12/20 23:00 12/13/20 10:56 Nifedipine Xl 60 Mg Tab PO Not Given Q12HR [facility]
[2020-12-13] MEDS: CALCIUM ACETATE 667 MG CAP PO SCH ×2 (13:49→21:25)
[2020-12-14 06:10] LABS: Basophils % (Auto) 0.8 % (0.0-1.8); Eosinophils # (Auto) 0.2 K/mm3 (0.0-0.4); Eosinophils % (Auto) 4.8 % (0.0-4.3); Hematocrit 29.1 % (35.5-45.6); Hemoglobin 9.4 gm/dl (11.8-15.2); Lymphocytes % (Auto) 20.4 % (13.4-35.0); Mean Corpuscular HGB Conc 33 % (32-34); Mean Corpuscular Volume 86 fl (84-94); Monocytes # (Auto) 0.5 K/mm3 (0.0-0.8); Monocytes % (Auto) 10.4 % (0.0-7.3); Platelet Count 120 K/mm3 (140-440); Red Blood Count 3.36 M/mm3 (3.65-5.03); Red Cell Distribution Width 14.1 % (13.2-15.2)
[2020-12-14 06:33] LABS: Albumin 3.3 g/dL (3.9-5); Calcium 7.3 mg/dL (8.4-10.2)
[2020-12-14] MEDS: FERROUS SULFATE 325 MG TAB PO SCH (10:34)
[2020-12-14] MEDS: METOPROLOL SUCCINATE XL 100 MG TAB PO SCH (10:34)
[2020-12-14] MEDS: ASPIRIN EC 81 MG TAB PO SCH (10:34)
[2020-12-14] MEDS: NIFEdipine XL 60 MG TAB PO SCH ×2 (10:34→21:56)
[2020-12-14] MEDS: INSULIN LISPRO 100 UNIT/ML SUB-Q SCH ×3 (10:34→16:10)
[2020-12-14] MEDS: hydroCHLOROthiazide 25 MG TAB PO SCH (10:34)
[2020-12-14] MEDS: CALCIUM CARB/VIT D3/MINERALS 600 MG/800 UNITS TAB PO SCH ×2 (10:34→21:56)
[2020-12-14] MEDS: hydrALAZINE 100 MG TAB PO SCH (10:37)
[2020-12-14] MEDS: INSULIN GLARGINE 100 UNITS/ML SUB-Q SCH (10:37)
[2020-12-14] MEDS: CALCIUM ACETATE 667 MG CAP PO SCH ×3 (10:44→17:03)
--- NOTE | 2020-12-14 10:58 | Progress Note ---
Assessment and Plan Assessment and plan: Abnormal labs, PMD sent to ER for dialysis --Chronic kidney disease progressed to ESRD Current Visit: Yes Status: Acute Vas-Cath placed, initiated hemodialysis yesterday Next HD scheduled for tomorrow, renal diet Case management to assist with outpatient HD scheduling -- IDDM (insulin dependent diabetes mellitus) Current Visit: Yes Status: Chronic Accu-Chek sliding scale coverage ADA diet Long-acting insulin as needed, follow A1c --HLD (hyperlipidemia) Current Visit: Yes Status: Chronic Continue statin, low-cholesterol diet -- HTN (hypertension) Current Visit: Yes Status: Chronic Cont antihypertensives and adjust meds --Anemia Current Visit: Yes Status: Chronic Sec to CKD, closely monitor H&H Transfuse as needed, Procrit during hemodialysis -- Hypocalcemia Current Visit: Yes Status: Acute Continue calcium carbonate --Hypomagnesemia Current Visit: Yes Status: Acute Supplemented. --Obesity; BMI 32.7 Current Visit: Yes Status: Acute Advised weight reduction when medically stable -- DVT prophylaxis Current Visit: No Status: Acute On Heparin We will closely monitor the patient and adjust management as needed he will Consult evaluation and recommendations and noted. Plan of care reviewed with the patient and his nurse DC planning per case management; outpatient hemodialysis chair scheduled Brief history: The patient is a 60 year old male with a history of diabetes, hypertension, and chronic renal insufficiency who was sent to the emergency department by his ne phrologist secondary to worsening of his renal failure. He had been watched for some time but had not progressed to end-stage renal disease vascular evaluated, patient had dialysis catheter placement, nephrology initiated hemodialysis on 12/13/2020. Case management to set up outpatient HD placement. 12/13/2020; patient with chronic kidney disease developed into end-stage renal disease Patient had Vas-Cath placement, nephrology initiated hemodialysis, patient tolerated well 12/14/2020; patient will be scheduled dialysis tomorrow, case management to assist with outpatient scheduling of HD chair History Interval history: I seen and examined the patient in his room this morning Patient's chart and medications reviewed, Patient feels slightly better Initiated dialysis yesterday, next HD tomorrow Case management to set up HD chair prior to discharge No new complaints Vital signs noted Hospitalist Physical - Constitutional Vitals: Temp Pulse Resp BP Pulse Ox 98.4 F 93 H 18 127/68 95 12/14/20 08:24 12/14/20 08:24 12/14/20 08:24 12/14/20 08:24 12/14/20 08:11 General appearance: Present: no acute distress, well-nourished - EENT Eyes: Present: PERRL, EOM intact - Neck Neck: Present: supple, normal ROM - Respiratory Respiratory effort: normal Respiratory: bilateral: diminished, negative: rales, rhonchi, wheezing - Cardiovascular Rhythm: regular Heart Sounds: Present: S1 & S2 - Extremities Extremities: no ischemia, No edema - Abdominal General gastrointestinal: soft, non-tender, non-distended, normal bowel sounds - Integumentary Integumentary: Present: clear, warm - Psychiatric Psychiatric: appropriate mood/affect, cooperative - Neurologic Neurologic: CNII-XII intact, moves all extremities HEART Score - HEART Score Age: 45-65 Risk factors: > 3 risk factors or hx of atherosclerotic disease Troponin: 1-3x normal limit - Critical Actions Critical Actions: 0-3 pts:0.9-1.7%risk of adverse cardiac event.Candidate for discharge Results - Labs CBC & Chem 7: 12/14/20 04:46 12/14/20 04:46 Labs: Laboratory Last Values WBC 4.7 K/mm3 (4.5-11.0) 12/14/20 04:46 RBC 3.36 M/mm3 (3.65-5.03) L 12/14/20 04:46 Hgb 9.4 gm/dl (11.8-15.2) L 12/14/20 04:46 Hct 29.1 % (35.5-45.6) L 12/14/20 04:46 MCV 86 fl (84-94) 12/14/20 04:46 MCH 28 pg (28-32) 12/14/20 04:46 MCHC 33 % (32-34) 12/14/20 04:46 RDW 14.1 % (13.2-15.2) 12/14/20 04:46 Plt Count 120 K/mm3 (140-440) L 12/14/20 04:46 Lymph % (Auto) 20.4 % (13.4-35.0) 12/14/20 04:46 [place] % (Auto) 10.4 % (0.0-7.3) H 12/14/20 04:46 Eos % (Auto) 4.8 % (0.0-4.3) H 12/14/20 04:46 Baso % (Auto) 0.8 % (0.0-1.8) 12/14/20 04:46 Lymph # (Auto) 1.0 K/mm3 (1.2-5.4) L 12/14/20 04:46 [place] # (Auto) 0.5 K/mm3 (0.0-0.8) 12/14/20 04:46 Eos # (Auto) 0.2 K/mm3 (0.0-0.4) 12/14/20 04:46 Baso # (Auto) 0.0 K/mm3 (0.0-0.1) 12/14/20 04:46 Seg Neutrophils % 63.6 % (40.0-70.0) 12/14/20 04:46 Seg Neutrophils # 3.0 K/mm3 (1.8-7.7) 12/14/20 04:46 VBG pH 7.295 (7.320-7.420) L 12/12/20 14:28 Sodium 140 mmol/L (137-145) 12/14/20 04:46 Potassium 4.8 mmol/L (3.6-5.0) 12/14/20 04:46 Chloride 102.2 mmol/L (98-107) 12/14/20 04:46 Carbon Dioxide 24 mmol/L (22-30) 12/14/20 04:46 Anion Gap 19 mmol/L 12/14/20 04:46 BUN 48 mg/dL (9-20) H 12/14/20 04:46 Creatinine 10.0 mg/dL (0.8-1.3) H 12/14/20 04:46 Estimated GFR 6 ml/min 12/14/20 04:46 BUN/Creatinine Ratio 5 % 12/14/20 04:46 Glucose 142 mg/dL (75-100) H 12/14/20 04:46 POC Glucose 184 mg/dL (70-105) H 12/13/20 15:47 Calcium 7.3 mg/dL (8.4-10.2) L D 12/14/20 04:46 Phosphorus 7.00 mg/dL (2.5-4.5) H 12/13/20 04:57 Magnesium 1.50 mg/dL (1.7-2.3) L 12/14/20 04:46 Total Bilirubin 0.20 mg/dL (0.1-1.2) 12/14/20 04:46 AST 7 units/L (5-40) 12/14/20 04:46 ALT 6 units/L (7-56) L 12/14/20 04:46 Alkaline Phosphatase 122 units/L (35-129) 12/14/20 04:46 Total Protein 6.4 g/dL (6.3-8.2) 12/14/20 04:46 Albumin 3.3 g/dL (3.9-5) L 12/14/20 04:46 Albumin/Globulin Ratio 1.1 % 12/14/20 04:46 Hepatitis A IgM Ab Non-reactive (NonReactive) 12/13/20 04:57 Hep Bs Antigen Non-reactive (Negative) 12/13/20 04:57 Hep B Core IgM Ab Non-reactive (NonReactive) 12/13/20 04:57 Hepatitis C Antibody Non-reactive (NonReactive) 12/13/20 04:57 Rosen/IV: Voiding Method Toilet Active Medications - Current Medications Current Medications: Generic Name Dose Route Start Last Admin Trade Name Freq PRN Reason Stop Dose Admin Aspirin 81 mg 12/13/20 10:00 12/14/20 10:34 Aspirin Ec 81 Mg Tab PO 81 mg QDAY [facility] Administration Atorvastatin Calcium 20 mg 12/13/20 22:00 12/13/20 21:25 Atorvastatin 20 Mg Tab PO 20 mg QHS [facility] Administration Calcium Acetate 1,334 mg 12/14/20 12:00 Calcium Acetate 667 Mg Cap PO TIDWM [facility] Ferrous Sulfate 325 mg 12/13/20 10:00 12/14/20 10:34 Ferrous Sulfate 325 Mg Tab PO 325 mg DAILY SARAH Administration Heparin Sodium (Porcine) 3,000 unit 12/13/20 08:14 Heparin 10,000 Units/10 Ml Vial IV RIVER PRN hemodialysis Hydralazine HCl 100 mg 12/13/20 08:00 12/14/20 10:37 Hydralazine 100 Mg Tab PO 100 mg TID SARAH Administration Hydrochlorothiazide 25 mg 12/13/20 10:00 12/14/20 10:34 Hydrochlorothiazide 25 Mg Tab PO 25 mg QDAY SARAH Administration Sodium Chloride 100 mls @ 999 mls/hr 12/13/20 08:14 Nacl 0.9% IV RIVER PRN Hypotension Insulin Glargine 10 units 12/13/20 10:00 12/14/20 10:37 Insulin Glargine 100 Units/Ml SUB-Q 10 units QDAY SARAH Administration Insulin Human Lispro 5 unit 12/13/20 07:30 12/14/20 10:34 Insulin Lispro 100 Unit/Ml SUB-Q Not Given [facility] Metoprolol Succinate 100 mg 12/13/20 10:00 12/14/20 10:34 Metoprolol Succinate Xl 100 Mg Tab PO 100 mg QDAY SARAH Administration Multivitamins/Minerals 1 each 12/13/20 10:00 12/14/20 10:34 Calcium Carb/Vit D3/Minerals 600 Mg/800 Units Tab PO 1 each BID SARAH Administration Nifedipine 60 mg 12/12/20 23:00 12/14/20 10:34 Nifedipine Xl 60 Mg Tab PO 60 mg Q12HR SARAH Administration
[2020-12-14] MEDS ORDERED: MAGNESIUM SULFATE 2 GM/50 ML BAG IV ONE (11:47)
--- NOTE | 2020-12-14 11:48 | Progress Note ---
Assessment and Plan 1. ESRD: CKD has progressed to ESRD. Presented with significantly elevated creatinine level. Avoid nephrotoxic agents. Meds dosage based on GFR. Patient was started on hemodialysis as CKD progressed to ESRD and associated metabolic acidosis. D/w patient (12/12) about the indications, benefits, risks and alternatives involved in hemodialysis. He voiced understanding and gave verbal consent. Hemodialysis: 12/13. Need outpatient HD chair. 2. FEN: Hyperkalemia, improved. Metabolic acidosis, on HD. Volume overload, UF with HD as tolerated. Calcium level is better. Replete Mg. Monitor lytes and volume status. 3. DM type 2. 4. Hypertension: BP controlled. Monitor. 5. Normochromic anemia, POA: 2/2 ESRD. Epogen as needed. 6. Medical non-compliance: Counseled. Subjective: Patient was seen and examined at the bedside. Doing ok. Examination: General appearance: well-developed, well-nourished, appears stated age, no distress HEENT: ATNC, JONATHAN, mucous membranes moist, hearing intact, vision intact Neck: neck supple, trachea midline Respiratory: Clear to Auscultation Heart: regular, S1S2, no murmur Gastrointestinal: soft, normoactive bowel sounds, not tender Integumentary: warm, dry, R leg rash Neurologic: no focal deficit, no asterixis, alert and oriented x3 Ext: 1 to 2+ bilateral LE edema, L > R Psychiatric: cooperative Hemodialysis access: R IJ tunnel catheter Subjective Date of service: 12/14/20 Objective - Vital Signs Vital signs: Vital Signs - 12hr 12/13/20 12/14/20 12/14/20 23:50 00:00 04:41 Temperature 99.1 F 99.0 F Pulse Rate 101 H 100 H 92 H Respiratory 18 18 Rate Blood Pressure 144/81 132/73 Blood Pressure [Left] O2 Sat by Pulse 98 95 Oximetry 12/14/20 12/14/20 12/14/20 08:11 08:24 10:00 Temperature 98.4 F Pulse Rate 94 H 93 H 93 H Respiratory 18 Rate Blood Pressure Blood Pressure 127/68 [Left] O2 Sat by Pulse 95 Oximetry - Lab 12/14/20 04:46 12/14/20 04:46 Most recent lab results Calcium 7.3 mg/dL (8.4-10.2) L D 12/14/20 04:46 Phosphorus 7.00 mg/dL (2.5-4.5) H 12/13/20 04:57 Magnesium 1.50 mg/dL (1.7-2.3) L 12/14/20 04:46 Medications & Allergies - Medications Allergies/Adverse Reactions: Allergies No Known Allergies Allergy (Unverified 05/09/19 11:44) Home Medications: Home Medications Medication Instructions Recorded Confirmed Last Taken Type Ferrous Sulfate [Iron 325 MG] 325 mg PO DAILY 05/11/19 12/13/20 12/12/20 History Aspirin EC [Halfprin EC] 81 mg PO QDAY #30 tablet. 05/13/19 12/13/20 12/12/20 Rx AtorvaSTATin [Lipitor] 20 mg PO QHS 30 Days #30 05/13/19 12/13/20 12/12/20 Rx Insulin Aspart (Nf) [NovoLOG 5 units SQ AC 30 Days 05/13/19 12/13/20 05/11/19 Rx Flexpen] Insulin Degludec [Tresiba 5 unit SQ QDAY 30 Days 05/13/19 12/13/20 12/12/20 Rx Flextouch U-200] Metoprolol Xl [Metoprolol 100 mg PO QDAY #30 tablet 05/13/19 12/13/20 12/12/20 Rx SUCCINATE ER TAB] NIFEdipine XL [Procardia Xl] 60 mg PO Q12HR #60 tablet 05/13/19 12/13/20 12/12/20 Rx hydrALAZINE [Apresoline TAB] 100 mg PO TID #90 tab 05/13/19 12/13/20 12/12/20 Rx hydroCHLOROthiazide [HCTZ] 25 mg PO QDAY #30 tablet 05/13/19 12/13/20 12/12/20 Rx Active Medications: Generic Name Dose Route Start Last Admin Trade Name Freq PRN Reason Stop Dose Admin Aspirin 81 mg 12/13/20 10:00 12/14/20 10:34 Aspirin Ec 81 Mg Tab PO 81 mg QDAY SARAH Administration Atorvastatin Calcium 20 mg 12/13/20 22:00 12/13/20 21:25 Atorvastatin 20 Mg Tab PO 20 mg QHS SARAH Administration Calcium Acetate 1,334 mg 12/14/20 12:00 Calcium Acetate 667 Mg Cap PO TIDWM [facility] Ferrous Sulfate 325 mg 12/13/20 10:00 12/14/20 10:34 Ferrous Sulfate 325 Mg Tab PO 325 mg DAILY SARAH Administration Heparin Sodium (Porcine) 3,000 unit 12/13/20 08:14 Heparin 10,000 Units/10 Ml Vial IV RIVER PRN hemodialysis Hydralazine HCl 100 mg 12/13/20 08:00 12/14/20 10:37 Hydralazine 100 Mg Tab PO 100 mg TID SARAH Administration Hydrochlorothiazide 25 mg 12/13/20 10:00 12/14/20 10:34 Hydrochlorothiazide 25 Mg Tab PO 25 mg QDAY [facility] Administration Sodium Chloride 100 mls @ 999 mls/hr 12/13/20 08:14 Nacl 0.9% IV RIVER PRN Hypotension Insulin Glargine 10 units 12/13/20 10:00 12/14/20 10:37 Insulin Glargine 100 Units/Ml SUB-Q 10 units QDAY [facility] Administration Insulin Human Lispro 5 unit 12/13/20 07:30 12/14/20 10:34 Insulin Lispro 100 Unit/Ml SUB-Q Not Given [facility] Metoprolol Succinate 100 mg 12/13/20 10:00 12/14/20 10:34 Metoprolol Succinate Xl 100 Mg Tab PO 100 mg QDAY [facility] Administration Multivitamins/Minerals 1 each 12/13/20 10:00 12/14/20 10:34 Calcium Carb/Vit D3/Minerals 600 Mg/800 Units Tab PO 1 each BID [facility] Administration Nifedipine 60 mg 12/12/20 23:00 12/14/20 10:34 Nifedipine Xl 60 Mg Tab PO 60 mg Q12HR [facility] Administration
[2020-12-14] MEDS: LOSARTAN 50 MG TAB PO SCH (14:09)
[2020-12-15] MEDS: INSULIN LISPRO 100 UNIT/ML SUB-Q SCH ×3 (09:09→18:34)
[2020-12-15] MEDS: NIFEdipine XL 60 MG TAB PO SCH ×2 (09:10→22:12)
[2020-12-15] MEDS: LOSARTAN 50 MG TAB PO SCH (09:11)
[2020-12-15] MEDS: CALCIUM ACETATE 667 MG CAP PO SCH ×3 (09:11→18:34)
[2020-12-15] MEDS: FERROUS SULFATE 325 MG TAB PO SCH (09:12)
[2020-12-15] MEDS: ASPIRIN EC 81 MG TAB PO SCH (09:12)
[2020-12-15] MEDS: CALCIUM CARB/VIT D3/MINERALS 600 MG/800 UNITS TAB PO SCH ×2 (09:12→22:12)
[2020-12-15] MEDS: hydroCHLOROthiazide 25 MG TAB PO SCH (09:12)
[2020-12-15] MEDS: METOPROLOL SUCCINATE XL 100 MG TAB PO SCH (09:12)
--- NOTE | 2020-12-15 09:31 | Progress Note ---
Assessment and Plan 1. ESRD: CKD has progressed to ESRD. Presented with significantly elevated creatinine level. Avoid nephrotoxic agents. Meds dosage based on GFR. Patient was started on hemodialysis as CKD progressed to ESRD and associated metabolic acidosis. D/w patient (12/12) about the indications, benefits, risks and alternatives involved in hemodialysis. He voiced understanding and gave verbal consent. Hemodialysis: 12/13. Need outpatient HD chair, spoke with CM. 2. FEN: Hyperkalemia, improved. Metabolic acidosis, on HD. Volume overload, UF with HD as tolerated. Calcium level is better. Replete Mg. Monitor lytes and volume status. 3. DM type 2. 4. Hypertension: BP controlled. Monitor. 5. Normochromic anemia, POA: 2/2 ESRD. Epogen as needed. 6. Medical non-compliance: Counseled. Subjective: Patient was seen and examined at the bedside. Doing ok. Examination: General appearance: well-developed, well-nourished, appears stated age, no distress HEENT: ATNC, JONATHAN, mucous membranes moist, hearing intact, vision intact Neck: neck supple, trachea midline Respiratory: Clear to Auscultation Heart: regular, S1S2, no murmur Gastrointestinal: soft, normoactive bowel sounds, not tender Integumentary: warm, dry, R leg rash Neurologic: no focal deficit, no asterixis, alert and oriented x3 Ext: 1 to 2+ bilateral LE edema, L > R Psychiatric: cooperative Hemodialysis access: R IJ tunnel catheter Subjective Date of service: 12/15/20 Objective - Vital Signs Vital signs: Vital Signs - 12hr 12/14/20 12/15/20 12/15/20 22:00 00:06 04:26 Temperature 98.3 F 98.5 F Pulse Rate 75 71 71 Respiratory 18 18 Rate Blood Pressure Blood Pressure 139/69 122/65 [Left] O2 Sat by Pulse 96 93 Oximetry 12/15/20 07:09 Temperature 98.4 F Pulse Rate 70 Respiratory 19 Rate Blood Pressure 126/67 Blood Pressure [Left] O2 Sat by Pulse 95 Oximetry - Lab 12/14/20 04:46 12/14/20 04:46 Most recent lab results Calcium 7.3 mg/dL (8.4-10.2) L D 12/14/20 04:46 Phosphorus 7.00 mg/dL (2.5-4.5) H 12/13/20 04:57 Magnesium 1.50 mg/dL (1.7-2.3) L 12/14/20 04:46 Medications & Allergies - Medications Allergies/Adverse Reactions: Allergies No Known Allergies Allergy (Unverified 05/09/19 11:44) Home Medications: Home Medications Medication Instructions Recorded Confirmed Last Taken Type Ferrous Sulfate [Iron 325 MG] 325 mg PO DAILY 05/11/19 12/13/20 12/12/20 History Aspirin EC [Halfprin EC] 81 mg PO QDAY #30 tablet.dr 05/13/19 12/13/20 12/12/20 Rx AtorvaSTATin [Lipitor] 20 mg PO QHS 30 Days #30 05/13/19 12/13/20 12/12/20 Rx Insulin Aspart (Nf) [NovoLOG 5 units SQ AC 30 Days 05/13/19 12/13/20 05/11/19 Rx Flexpen] Insulin Degludec [Tresiba 5 unit SQ QDAY 30 Days 05/13/19 12/13/20 12/12/20 Rx Flextouch U-200] Metoprolol Xl [Metoprolol 100 mg PO QDAY #30 tablet 05/13/19 12/13/20 12/12/20 Rx SUCCINATE ER TAB] NIFEdipine XL [Procardia Xl] 60 mg PO Q12HR #60 tablet 05/13/19 12/13/20 12/12/20 Rx hydrALAZINE [Apresoline TAB] 100 mg PO TID #90 tab 05/13/19 12/13/20 12/12/20 Rx hydroCHLOROthiazide [HCTZ] 25 mg PO QDAY #30 tablet 05/13/19 12/13/20 12/12/20 Rx Active Medications: Generic Name Dose Route Start Last Admin Trade Name Freq PRN Reason Stop Dose Admin Aspirin 81 mg 12/13/20 10:00 12/15/20 09:12 Aspirin Ec 81 Mg Tab PO 81 mg QDAY SARAH Administration Atorvastatin Calcium 20 mg 12/13/20 22:00 12/14/20 21:56 Atorvastatin 20 Mg Tab PO 20 mg QHS SARAH Administration Calcium Acetate 1,334 mg 12/14/20 12:00 12/15/20 09:11 Calcium Acetate 667 Mg Cap PO 1,334 mg TIDWM SARAH Administration Ferrous Sulfate 325 mg 12/13/20 10:00 12/15/20 09:12 Ferrous Sulfate 325 Mg Tab PO 325 mg DAILY SARAH Administration Heparin Sodium (Porcine) 3,000 unit 12/13/20 08:14 Heparin 10,000 Units/10 Ml Vial IV RIVER PRN hemodialysis Hydrochlorothiazide 25 mg 12/13/20 10:00 12/15/20 09:12 Hydrochlorothiazide 25 Mg Tab PO 25 mg QDAY SARAH Administration Sodium Chloride 100 mls @ 999 mls/hr 12/13/20 08:14 Nacl 0.9% IV RIVER PRN Hypotension Insulin Glargine 10 units 12/13/20 10:00 12/14/20 10:37 Insulin Glargine 100 Units/Ml SUB-Q 10 units QDAY [facility] Administration Insulin Human Lispro 5 unit 12/13/20 07:30 12/15/20 09:09 Insulin Lispro 100 Unit/Ml SUB-Q Not Given AC [facility] Losartan Potassium 50 mg 12/14/20 13:00 12/15/20 09:11 Losartan 50 Mg Tab PO 50 mg QDAY SARAH Administration Metoprolol Succinate 100 mg 12/13/20 10:00 12/15/20 09:12 Metoprolol Succinate Xl 100 Mg Tab PO 100 mg QDAY [facility] Administration Multivitamins/Minerals 1 each 12/13/20 10:00 12/15/20 09:12 Calcium Carb/Vit D3/Minerals 600 Mg/800 Units Tab PO 1 each BID SARAH Administration Nifedipine 60 mg 12/12/20 23:00 12/15/20 09:10 Nifedipine Xl 60 Mg Tab PO 60 mg Q12HR SARAH Administration
--- NOTE | 2020-12-15 10:42 | Progress Note ---
Assessment and Plan Assessment and plan: --Chronic kidney disease progressed to ESRD Current Visit: Yes Status: Acute Vas-Cath placed, initiated hemodialysis yesterday Next HD scheduled for tomorrow, renal diet Case management to assist with outpatient HD scheduling -- IDDM (insulin dependent diabetes mellitus) Current Visit: Yes Status: Chronic Accu-Chek sliding scale coverage ADA diet Long-acting insulin as needed, follow A1c --HLD (hyperlipidemia) Current Visit: Yes Status: Chronic Continue statin, low-cholesterol diet -- HTN (hypertension) Current Visit: Yes Status: Chronic Cont antihypertensives and adjust meds --Anemia Current Visit: Yes Status: Chronic Sec to CKD, closely monitor H&H Transfuse as needed, Procrit during hemodialysis -- Hypocalcemia Current Visit: Yes Status: Acute Continue calcium carbonate --Hypomagnesemia Current Visit: Yes Status: Acute Supplemented. --Obesity; BMI 32.7 Current Visit: Yes Status: Acute Advised weight reduction when medically stable -- DVT prophylaxis Current Visit: No Status: Acute On Heparin We will closely monitor the patient and adjust management as needed he will Consult evaluation and recommendations and noted. Plan of care reviewed with the patient and his nurse DC planning per case management; outpatient hemodialysis chair scheduled Brief history: The patient is a 60 year old male with a history of diabetes, hypertension, and chronic renal insufficiency who was sent to the emergency department by his pbx supervisor secondary to worsening of his renal failure. He had been watched for some time but had not progressed to end-stage renal disease vascular evalua rose, patient had dialysis catheter placement, nephrology initiated hemodialysis on 12/13/2020. Case management to set up outpatient HD placement. 12/13/2020; patient with chronic kidney disease developed into end-stage renal disease Patient had Vas-Cath placement, nephrology initiated hemodialysis, patient tolerated well 12/14/2020; patient will be scheduled dialysis tomorrow, case management to assist with outpatient scheduling of HD chair 12/15/2020; awaiting outpatient HD chair scheduling Continue HD per schedule Consults and recommendations noted and appreciated History Interval history: I have seen and examined the patient at the bedside Patient's chart and medications reviewed No new events reported by the nursing staff Vital signs noted Hospitalist Physical - Constitutional Vitals: Temp Pulse Resp BP Pulse Ox 98.4 F 70 19 126/67 95 12/15/20 07:09 12/15/20 07:09 12/15/20 07:09 12/15/20 07:09 12/15/20 07:09 General appearance: Present: no acute distress, well-nourished - EENT Eyes: Present: PERRL, EOM intact - Neck Neck: Present: supple, normal ROM - Respiratory Respiratory effort: normal Respiratory: bilateral: diminished, negative: rales, rhonchi, wheezing - Cardiovascular Rhythm: regular Heart Sounds: Present: S1 & S2 - Extremities Extremities: no ischemia, No edema - Abdominal General gastrointestinal: soft, non-tender, non-distended, normal bowel sounds - Integumentary Integumentary: Present: clear, warm - Psychiatric Psychiatric: appropriate mood/affect, cooperative - Neurologic Neurologic: CNII-XII intact, moves all extremities HEART Score - HEART Score Age: 45-65 Risk factors: > 3 risk factors or hx of atherosclerotic disease Troponin: 1-3x normal limit - Critical Actions Critical Actions: 0-3 pts:0.9-1.7%risk of adverse cardiac event.Candidate for discharge Results - Labs CBC & Chem 7: 12/14/20 04:46 12/14/20 04:46 Labs: Laboratory Last Values WBC 4.7 K/mm3 (4.5-11.0) 12/14/20 04:46 RBC 3.36 M/mm3 (3.65-5.03) L 12/14/20 04:46 Hgb 9.4 gm/dl (11.8-15.2) L 12/14/20 04:46 Hct 29.1 % (35.5-45.6) L 12/14/20 04:46 MCV 86 fl (84-94) 12/14/20 04:46 MCH 28 pg (28-32) 12/14/20 04:46 MCHC 33 % (32-34) 12/14/20 04:46 RDW 14.1 % (13.2-15.2) 12/14/20 04:46 Plt Count 120 K/mm3 (140-440) L 12/14/20 04:46 Lymph % (Auto) 20.4 % (13.4-35.0) 12/14/20 04:46 Webb % (Auto) 10.4 % (0.0-7.3) H 12/14/20 04:46 Eos % (Auto) 4.8 % (0.0-4.3) H 12/14/20 04:46 Baso % (Auto) 0.8 % (0.0-1.8) 12/14/20 04:46 Lymph # (Auto) 1.0 K/mm3 (1.2-5.4) L 12/14/20 04:46 Webb # (Auto) 0.5 K/mm3 (0.0-0.8) 12/14/20 04:46 Eos # (Auto) 0.2 K/mm3 (0.0-0.4) 12/14/20 04:46 Baso # (Auto) 0.0 K/mm3 (0.0-0.1) 12/14/20 04:46 Seg Neutrophils % 63.6 % (40.0-70.0) 12/14/20 04:46 Seg Neutrophils # 3.0 K/mm3 (1.8-7.7) 12/14/20 04:46 VBG pH 7.295 (7.320-7.420) L 12/12/20 14:28 Sodium 140 mmol/L (137-145) 12/14/20 04:46 Potassium 4.8 mmol/L (3.6-5.0) 12/14/20 04:46 Chloride 102.2 mmol/L (98-107) 12/14/20 04:46 Carbon Dioxide 24 mmol/L (22-30) 12/14/20 04:46 Anion Gap 19 mmol/L 12/14/20 04:46 BUN 48 mg/dL (9-20) H 12/14/20 04:46 Creatinine 10.0 mg/dL (0.8-1.3) H 12/14/20 04:46 Estimated GFR 6 ml/min 12/14/20 04:46 BUN/Creatinine Ratio 5 % 12/14/20 04:46 Glucose 142 mg/dL (75-100) H 12/14/20 04:46 POC Glucose 95 mg/dL (70-105) 12/15/20 07:39 Calcium 7.3 mg/dL (8.4-10.2) L D 12/14/20 04:46 Phosphorus 7.00 mg/dL (2.5-4.5) H 12/13/20 04:57 Magnesium 1.50 mg/dL (1.7-2.3) L 12/14/20 04:46 Total Bilirubin 0.20 mg/dL (0.1-1.2) 12/14/20 04:46 AST 7 units/L (5-40) 12/14/20 04:46 ALT 6 units/L (7-56) L 12/14/20 04:46 Alkaline Phosphatase 122 units/L (35-129) 12/14/20 04:46 Total Protein 6.4 g/dL (6.3-8.2) 12/14/20 04:46 Albumin 3.3 g/dL (3.9-5) L 12/14/20 04:46 Albumin/Globulin Ratio 1.1 % 12/14/20 04:46 Hepatitis A IgM Ab Non-reactive (NonReactive) 12/13/20 04:57 Hep Bs Antigen Non-reactive (Negative) 12/13/20 04:57 Hep B Core IgM Ab Non-reactive (NonReactive) 12/13/20 04:57 Hepatitis C Antibody Non-reactive (NonReactive) 12/13/20 04:57 Rosen/IV: Voiding Method Toilet Active Medications - Current Medications Current Medications: Generic Name Dose Route Start Last Admin Trade Name Freq PRN Reason Stop Dose Admin Aspirin 81 mg 12/13/20 10:00 12/15/20 09:12 Aspirin Ec 81 Mg Tab PO 81 mg QDAY SARAH Administration Atorvastatin Calcium 20 mg 12/13/20 22:00 12/14/20 21:56 Atorvastatin 20 Mg Tab PO 20 mg QHS SARAH Administration Calcium Acetate 1,334 mg 12/14/20 12:00 12/15/20 09:11 Calcium Acetate 667 Mg Cap PO 1,334 mg TIDWM SARAH Administration Ferrous Sulfate 325 mg 12/13/20 10:00 12/15/20 09:12 Ferrous Sulfate 325 Mg Tab PO 325 mg DAILY SARAH Administration Heparin Sodium (Porcine) 3,000 unit 12/13/20 08:14 Heparin 10,000 Units/10 Ml Vial IV RIVER PRN hemodialysis Hydrochlorothiazide 25 mg 12/13/20 10:00 12/15/20 09:12 Hydrochlorothiazide 25 Mg Tab PO 25 mg QDAY SARAH Administration Sodium Chloride 100 mls @ 999 mls/hr 12/13/20 08:14 Nacl 0.9% IV RIVER PRN Hypotension Insulin Glargine 10 units 12/13/20 10:00 12/14/20 10:37 Insulin Glargine 100 Units/Ml SUB-Q 10 units QDAY SARAH Administration Insulin Human Lispro 5 unit 12/13/20 07:30 12/15/20 09:09 Insulin Lispro 100 Unit/Ml SUB-Q Not Given AC [facility] Losartan Potassium 50 mg 12/14/20 13:00 12/15/20 09:11 Losartan 50 Mg Tab PO 50 mg QDAY SARAH Administration Metoprolol Succinate 100 mg 12/13/20 10:00 12/15/20 09:12 Metoprolol Succinate Xl 100 Mg Tab PO 100 mg QDAY SARAH Administration Multivitamins/Minerals 1 each 12/13/20 10:00 12/15/20 09:12 Calcium Carb/Vit D3/Minerals 600 Mg/800 Units Tab PO 1 each BID SARAH Administration Nifedipine 60 mg 12/12/20 23:00 12/15/20 09:10 Nifedipine Xl 60 Mg Tab PO 60 mg Q12HR SARAH Administration
--- NOTE | 2020-12-15 11:41 | Vascular Lab Report ---
DOPPLER ULTRASOUND UPPER EXTREMITY VENOUS MAPPING, BILATERAL INDICATION / CLINICAL INFORMATION: B/L Upper extremities for dialysis access TECHNIQUE: Grayscale, color and spectral Doppler imaging of the venous system of the right and left u pper extremities was performed. COMPARISON: None available. FINDINGS: RIGHT UPPER EXTREMITY: Brachial Artery (Diameter, in cm): 23 4 Radial Artery (Diameter, in cm): 0.24 Basilic Vein (Diameter, in cm): - Upper Arm: 0.34 - Mid Arm: 0.26 - Lower Arm: 0.21 - Antecubital: 0.14 - Upper Forearm: 0.11 - Mid Forearm: 0.13 - Distal Forearm: 0.11 Cephalic Vein (Diameter, in cm): - Upper Arm: 0.31 - Mid Arm: 0.26 - Lower Arm: 0.26 - Antecubital: 0.59 - Upper Forearm: 0.22 - Mid Forearm: 0.19 - Distal Forearm: 0.2 LEFT UPPER EXTREMITY: Brachial Artery (Diameter, in cm): 0.48 Radial Artery (Diameter, in cm): 0.27 Basilic Vein (Diameter, in cm): - Upper Arm: 0.27 - Mid Arm: 0.3 - Lower Arm: 0.17 - Antecubital: 0.15 - Upper Forearm: 0.12 - Mid Forearm: 0.11 - Distal Forearm: 0.09 Cephalic Vein (Diameter, in cm): - Upper Arm: 0.37 - Mid Arm: 0.15 - Lower Arm: 0.14 - Antecubital: 0.37 - Upper Forearm: 0.17 - Mid Forearm: 0.23 - Distal Forearm: 0.12 Additional Findings: There is early bifurcation of the brachial artery to the radial and ulnar arteri es in the upper arm IMPRESSION: 1. Upper extremity venous mapping as above. Signer Name: Omar Maradiaga MD Signed: 12/15/2020 11:24 AM Workstation Name: [employer]
[2020-12-15] MEDS: INSULIN GLARGINE 100 UNITS/ML SUB-Q SCH (11:50)
[2020-12-15] MEDS: MAGNESIUM OXIDE 400 MG TAB PO SCH ×2 (13:58→22:12)
[2020-12-15] MEDS: EPOETIN ALFA-EPBX 10,000 UNIT/1 ML VIAL SUB-Q PRN (16:45)
--- NOTE | 2020-12-16 08:43 | Progress Note ---
Assessment and Plan 1. ESRD: CKD has progressed to ESRD. Presented with significantly elevated creatinine level. Avoid nephrotoxic agents. Meds dosage based on GFR. Patient was started on hemodialysis as CKD progressed to ESRD and associated metabolic acidosis. Hemodialysis: 12/13, 12/15. Outpatient HD chair at [facility] ([facility] 2. FEN: Hyperkalemia, improved. Metabolic acidosis, on HD. Volume overload, UF with HD as tolerated. Calcium level is better. Monitor lytes and volume status. 3. DM type 2. 4. Hypertension: BP controlled. Monitor. 5. Normochromic anemia, POA: 2/2 ESRD. Epogen as needed. 6. Medical non-compliance: Counseled. Subjective: Patient was seen and examined at the bedside. Doing ok. Examination: General appearance: well-developed, well-nourished, appears stated age, no distress HEENT: ATNC, JONATHAN, mucous membranes moist, hearing intact, vision intact Neck: neck supple, trachea midline Respiratory: Clear to Auscultation Heart: regular, S1S2, no murmur Gastrointestinal: soft, normoactive bowel sounds, not tender Integumentary: warm, dry, R leg rash Neurologic: no focal deficit, no asterixis, alert and oriented x3 Ext: trace bilateral LE edema Psychiatric: cooperative Hemodialysis access: R IJ tunnel catheter Subjective Date of service: 12/16/20 Objective - Vital Signs Vital signs: Vital Signs - 12hr 12/16/20 12/16/20 00:34 05:44 Temperature 99.2 F 98.9 F Pulse Rate 90 82 Respiratory 18 20 Rate Blood Pressure 144/72 137/73 O2 Sat by Pulse 96 96 Oximetry - Lab 12/14/20 04:46 12/14/20 04:46 Most recent lab results Calcium 7.3 mg/dL (8.4-10.2) L D 12/14/20 04:46 Phosphorus 7.00 mg/dL (2.5-4.5) H 12/13/20 04:57 Magnesium 1.50 mg/dL (1.7-2.3) L 12/14/20 04:46 Medications & Allergies - Medications Allergies/Adverse Reactions: Allergies No Known Allergies Allergy (Unverified 05/09/19 11:44) Home Medications: Home Medications Medication Instructions Recorded Confirmed Last Taken Type Ferrous Sulfate [Iron 325 MG] 325 mg PO DAILY 05/11/19 12/13/20 12/12/20 History Aspirin EC [Halfprin EC] 81 mg PO QDAY #30 tablet. 05/13/19 12/13/20 12/12/20 Rx AtorvaSTATin [Lipitor] 20 mg PO QHS 30 Days #30 05/13/19 12/13/20 12/12/20 Rx Insulin Aspart (Nf) [NovoLOG 5 units SQ AC 30 Days 05/13/19 12/13/20 05/11/19 Rx Flexpen] Insulin Degludec [Tresiba 5 unit SQ QDAY 30 Days 05/13/19 12/13/20 12/12/20 Rx Flextouch U-200] Metoprolol Xl [Metoprolol 100 mg PO QDAY #30 tablet 05/13/19 12/13/20 12/12/20 Rx SUCCINATE ER TAB] NIFEdipine XL [Procardia Xl] 60 mg PO Q12HR #60 tablet 05/13/19 12/13/20 12/12/20 Rx hydrALAZINE [Apresoline TAB] 100 mg PO TID #90 tab 05/13/19 12/13/20 12/12/20 Rx hydroCHLOROthiazide [HCTZ] 25 mg PO QDAY #30 tablet 05/13/19 12/13/20 12/12/20 Rx Calcium Acetate [Phoslo] 1,334 mg PO TIDWM #30 capsule 12/16/20 Unknown Rx Losartan [Cozaar] 50 mg PO QDAY #30 tablet 12/16/20 Unknown Rx Active Medications: Generic Name Dose Route Start Last Admin Trade Name Tammy EARNESTN Reason Stop Dose Admin Aspirin 81 mg 12/13/20 10:00 12/15/20 09:12 Aspirin Ec 81 Mg Tab PO 81 mg QDAY SARAH Administration Atorvastatin Calcium 20 mg 12/13/20 22:00 12/15/20 22:12 Atorvastatin 20 Mg Tab PO 20 mg QHS SARAH Administration Calcium Acetate 1,334 mg 12/14/20 12:00 12/15/20 18:34 Calcium Acetate 667 Mg Cap PO Not Given TIDWM [facility] Ferrous Sulfate 325 mg 12/13/20 10:00 12/15/20 09:12 Ferrous Sulfate 325 Mg Tab PO 325 mg DAILY SARAH Administration Heparin Sodium (Porcine) 3,000 unit 12/13/20 08:14 Heparin 10,000 Units/10 Ml Vial IV RIVER PRN hemodialysis Hydrochlorothiazide 25 mg 12/13/20 10:00 12/15/20 09:12 Hydrochlorothiazide 25 Mg Tab PO 25 mg QDAY SARAH Administration Sodium Chloride 100 mls @ 999 mls/hr 12/13/20 08:14 Nacl 0.9% IV RIVER PRN Hypotension Insulin Glargine 10 units 12/13/20 10:00 12/15/20 11:50 Insulin Glargine 100 Units/Ml SUB-Q 10 units QDAY SARAH Administration Insulin Human Lispro 5 unit 12/13/20 07:30 12/15/20 18:34 Insulin Lispro 100 Unit/Ml SUB-Q Not Given AC [facility] Losartan Potassium 50 mg 12/14/20 13:00 12/15/20 09:11 Losartan 50 Mg Tab PO 50 mg QDAY SARAH Administration Magnesium Oxide 400 mg 12/15/20 12:00 12/15/20 22:12 Magnesium Oxide 400 Mg Tab PO 400 mg BID SARAH Administration Metoprolol Succinate 100 mg 12/13/20 10:00 12/15/20 09:12 Metoprolol Succinate Xl 100 Mg Tab PO 100 mg QDAY SARAH Administration Multivitamins/Minerals 1 each 12/13/20 10:00 12/15/20 22:12 Calcium Carb/Vit D3/Minerals 600 Mg/800 Units Tab PO 1 each BID SARAH Administration Nifedipine 60 mg 12/12/20 23:00 12/15/20 22:12 Nifedipine Xl 60 Mg Tab PO 60 mg Q12HR SARAH Administration
[2020-12-16] MEDS: INSULIN LISPRO 100 UNIT/ML SUB-Q SCH (09:14)
[2020-12-16] MEDS: EPOETIN ALFA-EPBX 10,000 UNIT/1 ML VIAL SUB-Q PRN (10:30)
--- NOTE | 2020-12-16 10:57 | Discharge Summary ---
Providers - Providers Date of Admission: 12/12/20 16:13 Date of discharge: 12/16/20 Attending physician: CARROL WELLER 12/12/20 17:12 Consult to Interventional Radiology [CONS] Routine Consulting Provider: ZION DEVINE Reason For Exam: Tunnel hemodialysis catheter Notified:: yes Was contact made?: Yes If yes, spoke with:: Primary care physician: [employer] Hospitalization Condition: Stable Disposition: DC-01 TO HOME OR SELFCARE Time spent for discharge: 35 min Core Measure Documentation - Palliative Care Palliative Care/ Comfort Measures: Not Applicable - Core Measures Any of the following diagnoses?: none Exam - Constitutional Vitals: Temp Pulse Resp BP Pulse Ox 98.2 F 83 18 149/85 97 12/16/20 09:15 12/16/20 10:00 12/16/20 09:15 12/16/20 10:00 12/16/20 08:06 General appearance: Present: no acute distress, well-nourished - EENT Eyes: Present: PERRL, EOM intact - Neck Neck: Present: supple, normal ROM - Respiratory Respiratory effort: normal Respiratory: bilateral: diminished, negative: rales, rhonchi, wheezing - Cardiovascular Rhythm: regular Heart Sounds: Present: S1 & S2 - Extremities Extremities: no ischemia, No edema - Abdominal General gastrointestinal: Present: soft, non-tender, non-distended, normal bowel sounds - Integumentary Integumentary: Present: clear, warm - Musculoskeletal Musculoskeletal: strength equal bilaterally - Psychiatric Psychiatric: appropriate mood/affect, cooperative - Neurologic Neurologic: CNII-XII intact, moves all extremities Plan Activity: advance as tolerated Diet: diabetic, renal Additional Instructions: Follow renal/hemodialysis per schedule. If you have worsening symptoms contact MD or go to the nearest emergency room as needed. strongly advised to comply with medications, diet, follow-up visits Follow up with: PRIMARY CARE, [Primary Care Provider] - 3-5 Days Prescriptions: Losartan [Cozaar] 50 mg PO QDAY #30 tablet Calcium Acetate [Phoslo] 1,334 mg PO TIDWM #30 capsule
[2020-12-16] MEDS: CALCIUM ACETATE 667 MG CAP PO SCH ×2 (13:01→13:06)
[2020-12-16] MEDS: CALCIUM CARB/VIT D3/MINERALS 600 MG/800 UNITS TAB PO SCH (13:01)
[2020-12-16] MEDS: hydroCHLOROthiazide 25 MG TAB PO SCH (13:01)
[2020-12-16] MEDS: MAGNESIUM OXIDE 400 MG TAB PO SCH (13:03)
[2020-12-16] MEDS: NIFEdipine XL 60 MG TAB PO SCH (13:03)
[2020-12-16] MEDS: ASPIRIN EC 81 MG TAB PO SCH (13:03)
[2020-12-16] MEDS: METOPROLOL SUCCINATE XL 100 MG TAB PO SCH (13:03)
[2020-12-16] MEDS: LOSARTAN 50 MG TAB PO SCH (13:04)
[2020-12-16] MEDS: FERROUS SULFATE 325 MG TAB PO SCH (13:05)
[2020-12-16] MEDS: INSULIN GLARGINE 100 UNITS/ML SUB-Q SCH (13:05)
[2020-12-16 13:06] VITALS: BP 180/85
--- NOTE | 2020-12-18 11:24 | Electrocardiograph Report ---
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
--- NOTE | 2020-12-18 11:28 | Electrocardiograph Report ---
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
== END 2020-12-16 14:49 | disposition home or self-care (01) | DRG 674 ==
LOC: ED 12:00 → 4A 16:13
PROVIDERS: ADMIT Internal Medicine; ATTEND Internal Medicine
PROC: 0JH63XZ Insertion of Tunneled Vascular Access Device into Chest Subcutaneous Tissue and Fascia, Percutaneous Approach (ICD-10-PCS; principal; 2020-12-13)
PROC: 02H633Z Insertion of Infusion Device into Right Atrium, Percutaneous Approach (ICD-10-PCS; 2020-12-13)
PROC: B548ZZA Ultrasonography of Superior Vena Cava, Guidance (ICD-10-PCS; 2020-12-13)
PROC: B5181ZA Fluoroscopy of Superior Vena Cava using Low Osmolar Contrast, Guidance (ICD-10-PCS; 2020-12-13)
PROC: 5A1D70Z Performance of Urinary Filtration, Intermittent, Less than 6 Hours Per Day (ICD-10-PCS; 2020-12-13)
PROC: 5A1D70Z Performance of Urinary Filtration, Intermittent, Less than 6 Hours Per Day (ICD-10-PCS; 2020-12-14)
PROC: 5A1D70Z Performance of Urinary Filtration, Intermittent, Less than 6 Hours Per Day (ICD-10-PCS; 2020-12-16)
DX: N17.9 Acute kidney failure, unspecified (principal); I12.0 Hypertensive chronic kidney disease with stage 5 chronic kidney disease or end stage renal disease; E87.2 Acidosis; E87.5 Hyperkalemia; N18.6 End stage renal disease; E83.51 Hypocalcemia; E11.22 Type 2 diabetes mellitus with diabetic chronic kidney disease; E66.9 Obesity, unspecified; Z68.32 Body mass index [BMI] 32.0-32.9, adult; Z91.14 Patient's other noncompliance with medication regimen; Z79.4 Long term (current) use of insulin; Z79.899 Other long term (current) drug therapy; E87.70 Fluid overload, unspecified; D63.1 Anemia in chronic kidney disease; E78.2 Mixed hyperlipidemia; E83.42 Hypomagnesemia
CPT/HCPCS: 36415; 36558; 71046; 77001; 80048; 80053; 80074; 82805; 82962; 83735; 84100; 85025; 93005; 93970; 96365; 96375; G0378; A9270-GY; C1750; C1769; J0610; J0690; J0885; J1644; J1815; J2250; J3010; J3475; J7050; U0003

== ENCOUNTER 2021-02-05 05:52 | Observation (INO) | payer BC ==
[2021-02-05 08:17] LABS: Basophils % (Auto) 0.1 % (0.0-1.8); Hematocrit 39.9 % (35.5-45.6); Hemoglobin 13.1 gm/dl (11.8-15.2); Lymphocytes # (Auto) 0.8 K/mm3 (1.2-5.4); Lymphocytes % (Auto) 9.5 % (13.4-35.0); Mean Corpuscular HGB Conc 33 % (32-34); Mean Corpuscular Volume 86 fl (84-94); Monocytes # (Auto) 0.5 K/mm3 (0.0-0.8); Monocytes % (Auto) 5.8 % (0.0-7.3); Platelet Count 164 K/mm3 (140-440); Red Blood Count 4.64 M/mm3 (3.65-5.03); Red Cell Distribution Width 14.1 % (13.2-15.2)
--- NOTE | 2021-02-05 08:56 | Emergency Department Report ---
ED General Adult HPI - General Chief complaint: Nausea/Vomiting/Diarrhea Stated complaint: Nausea, vomiting, lower abdominal cramping PUI?: No Time Seen by Provider: 02/05/21 08:53 Source: patient, RN notes reviewed, old records reviewed Mode of arrival: Ambulatory Limitations: No Limitations - History of Present Illness Initial comments: The patient was evaluated in the emergency department for symptoms described in the history of present illness. He/she was evaluated in the context of the global COVID-19 pandemic, which necessitated consideration that the patient might be at risk for infection with the virus that causes COVID-19. Institutional protocols and algorithms that pertain to the evaluation of patients at risk for COVID-19 are in a state of rapid change based on information released by regulatory bodies including the CDC and federal and state organizations. These policies and algorithms were followed during the patient's care in the emergency department. Please note that these policies, procedures and recommendations changed on a rapid basis. Nephrology: Dr. Blevins The patient is a 60-year-old gentleman. The patient has a history of end-stage renal disease on hemodialysis. The patient presents to the ER today with a complaint of lower abdominal cramping, nausea vomiting, malaise and fatigue. The patient reports that during his last hemodialysis session, he felt there was incomplete, and he will get 1 hour of hemodialysis. He was treated with Zofran and Tylenol in the emergency room, which improved his symptoms. He denies headache, neck pain, chest pain, shortness of breath, Covid s ymptomatology. He denies urinary symptoms and testicular pain. -: Gradual, hour(s) Location: abdomen Radiation: non-radiation Consistency: now resolved Worsens with: none Associated Symptoms: denies other symptoms - Related Data Home Medications Medication Instructions Recorded Confirmed Last Taken Ferrous Sulfate [Iron 325 MG] 325 mg PO DAILY 05/11/19 12/13/20 12/12/20 Previous Rx's Medication Instructions Recorded Last Taken Type Aspirin EC [Halfprin EC] 81 mg PO QDAY #30 tablet. 05/13/19 12/12/20 Rx AtorvaSTATin [Lipitor] 20 mg PO QHS 30 Days #30 05/13/19 12/12/20 Rx Insulin Aspart (Nf) [NovoLOG 5 units SQ AC 30 Days 05/13/19 05/11/19 Rx Flexpen] Insulin Degludec [Tresiba 5 unit SQ QDAY 30 Days 05/13/19 12/12/20 Rx Flextouch U-200] Metoprolol Xl [Metoprolol 100 mg PO QDAY #30 tablet 05/13/19 12/12/20 Rx SUCCINATE ER TAB] NIFEdipine XL [Procardia Xl] 60 mg PO Q12HR #60 tablet 05/13/19 12/12/20 Rx hydrALAZINE [Apresoline TAB] 100 mg PO TID #90 tab 05/13/19 12/12/20 Rx hydroCHLOROthiazide [HCTZ] 25 mg PO QDAY #30 tablet 05/13/19 12/12/20 Rx Calcium Acetate [Phoslo] 1,334 mg PO TIDWM #30 capsule 12/16/20 Unknown Rx Losartan [Cozaar] 50 mg PO QDAY #30 tablet 12/16/20 Unknown Rx Allergies Allergy/AdvReac Type Severity Reaction Status Date / Time No Known Allergies Allergy Unverified 05/09/19 11:44 ED Review of Systems ROS: Stated complaint: EMESIS Other details as noted in HPI Comment: All other systems reviewed and negative Gastrointestinal: abdominal pain, nausea, vomiting Genitourinary: denies: dysuria, testicular pain, testicular mass ED Past Medical Hx - Past Medical History Previous Medical History?: Yes Hx Hypertension: Yes Hx CVA: No Hx Heart Attack/AMI: No Hx Congestive Heart Failure: No Hx Diabetes: Yes Hx Deep Vein Thrombosis: No Hx Pulmonary Embolism: No Hx GERD: No Hx Liver Disease: No Hx Renal Disease: No Hx Sickle Cell Disease: No Hx Arthritis: No Hx Headaches / Migraines: No Hx Seizures: No Hx Kidney Stones: No Hx Psychiatric Treatment: No Hx Asthma: No Hx COPD: No Hx Tuberculosis: No Hx Dementia: No Hx HIV: No Additional medical history: anemia, dyslipidemia - Surgical History Additional Surgical History: Prostatectomy - Social History Smoking Status: Never Smoker Substance Use Type: None - Medications Home Medications: Home Medications Medication Instructions Recorded Confirmed Last Taken Type Ferrous Sulfate [Iron 325 MG] 325 mg PO DAILY 05/11/19 12/13/20 12/12/20 History Aspirin EC [Halfprin EC] 81 mg PO QDAY #30 tablet. 05/13/19 12/13/20 12/12/20 Rx AtorvaSTATin [Lipitor] 20 mg PO QHS 30 Days #30 05/13/19 12/13/20 12/12/20 Rx Insulin Aspart (Nf) [NovoLOG 5 units SQ AC 30 Days 05/13/19 12/13/20 05/11/19 Rx Flexpen] Insulin Degludec [Tresiba 5 unit SQ QDAY 30 Days 05/13/19 12/13/20 12/12/20 Rx Flextouch U-200] Metoprolol Xl [Metoprolol 100 mg PO QDAY #30 tablet 05/13/19 12/13/20 12/12/20 Rx SUCCINATE ER TAB] NIFEdipine XL [Procardia Xl] 60 mg PO Q12HR #60 tablet 05/13/19 12/13/20 12/12/20 Rx hydrALAZINE [Apresoline TAB] 100 mg PO TID #90 tab 05/13/19 12/13/20 12/12/20 Rx hydroCHLOROthiazide [HCTZ] 25 mg PO QDAY #30 tablet 05/13/19 12/13/20 12/12/20 Rx Calcium Acetate [Phoslo] 1,334 mg PO TIDWM #30 capsule 12/16/20 Unknown Rx Losartan [Cozaar] 50 mg PO QDAY #30 tablet 12/16/20 Unknown Rx ED Physical Exam - General Limitations: No Limitations General appearance: alert, in no apparent distress - Head Head exam: Present: atraumatic, normocephalic - Eye Eye exam: Present: normal appearance, EOMI. Absent: nystagmus - ENT ENT exam: Present: normal exam, normal orophraynx, mucous membranes moist, normal external ear exam - Neck Neck exam: Present: normal inspection, full ROM. Absent: tenderness, meningismus - Respiratory Respiratory exam: Present: normal lung sounds bilaterally, other (There is a right-sided thoracic vascular access catheter, without redness, pus, streaking or tenderness). Absent: respiratory distress, wheezes, rales, rhonchi, stridor, decreased breath sounds - Cardiovascular Cardiovascular Exam: Present: tachycardia, normal heart sounds. Absent: irregular rhythm, systolic murmur, diastolic murmur, rubs, gallop - GI/Abdominal GI/Abdominal exam: Present: soft. Absent: distended, tenderness, guarding, rebound, rigid, pulsatile mass - Rectal Rectal exam: Present: deferred - Extremities Exam Extremities exam: Present: normal inspection, full ROM, other (2+ pulses noted in the bilateral upper and lower extremities. There is no palpable cord. negative Homans sign. Muscular compartments are soft. The pelvis is stable.). Absent: pedal edema, calf tenderness - Back Exam Back exam: Present: normal inspection, full ROM. Absent: tenderness, CVA tenderness (R), CVA tenderness (L), paraspinal tenderness, vertebral tenderness - Neurological Exam Neurological exam: Present: alert, oriented X3, other (No facial droop. Tongue midline. Extraocular movements intact bilaterally. Facial sensation intact to light touch in V1, V2, V3 distribution bilaterally. 5 and a 5 strength in 4 extremities. Sensation intact to light touch in 4 extremities.) - Psychiatric Psychiatric exam: Present: normal affect, normal mood - Skin Skin exam: Present: warm, dry, intact, normal color. Absent: rash ED Course Vital Signs 02/05/21 02/05/21 02/05/21 06:16 09:02 09:13 Temperature 99.6 F Pulse Rate 108 H 106 H Respiratory 18 12 Rate Blood Pressure 111/77 170/89 Blood Pressure 151/85 [l] O2 Sat by Pulse 99 98 Oximetry 02/05/21 02/05/21 02/05/21 09:15 09:31 09:45 Temperature Pulse Rate 102 H 104 H 103 H Respiratory 17 12 13 Rate Blood Pressure 170/89 152/89 152/89 Blood Pressure [l] O2 Sat by Pulse 91 99 98 Oximetry 02/05/21 02/05/21 10:00 10:17 Temperature Pulse Rate 84 105 H Respiratory 12 Rate Blood Pressure 152/79 152/79 Blood Pressure [l] O2 Sat by Pulse 98 97 Oximetry ED Medical Decision Making - Lab Data Result diagrams: 02/05/21 07:04 02/05/21 07:04 Lab Results 02/05/21 02/05/21 Range/Units 07:04 07:04 WBC 8.9 (4.5-11.0) K/mm3 RBC 4.64 (3.65-5.03) M/mm3 Hgb 13.1 (11.8-15.2) gm/dl Hct 39.9 (35.5-45.6) % MCV 86 (84-94) fl MCH 28 (28-32) pg MCHC 33 (32-34) % RDW 14.1 (13.2-15.2) % Plt Count 164 (140-440) K/mm3 Lymph % (Auto) 9.5 L (13.4-35.0) % Mcnairy % (Auto) 5.8 (0.0-7.3) % Eos % (Auto) 0.0 (0.0-4.3) % Baso % (Auto) 0.1 (0.0-1.8) % Lymph # (Auto) 0.8 L (1.2-5.4) K/mm3 Mcnairy # (Auto) 0.5 (0.0-0.8) K/mm3 Eos # (Auto) 0.0 (0.0-0.4) K/mm3 Baso # (Auto) 0.0 (0.0-0.1) K/mm3 Seg Neutrophils % 84.6 H (40.0-70.0) % Seg Neutrophils # 7.5 (1.8-7.7) K/mm3 Sodium 139 (137-145) mmol/L Potassium 5.5 H (3.6-5.0) mmol/L Chloride 85.6 L (98-107) mmol/L Carbon Dioxide 27 (22-30) mmol/L Anion Gap 32 mmol/L BUN 60 H (9-20) mg/dL Creatinine 13.0 H (0.8-1.3) mg/dL Estimated GFR 5 ml/min BUN/Creatinine Ratio 5 % Glucose 160 H (75-100) mg/dL Calcium 9.0 (8.4-10.2) mg/dL - EKG Data -: EKG Interpreted by Il Rate: tachycardia - EKG Data 02/05/21 11:20 EKG interpreted at 09: 01 This is a tachycardic rate, 106 bpm. Do not see P waves. Suspicious for junctional tachycardia. Left axis deviation, borderline left anterior fascic ular block. QTc 467 ms. This is an abnormal EKG. This is not a STEMI. Appears to be unchanged from prior EKG from December 12, 2020 - Radiology Data Radiology results: report reviewed, image reviewed [facility] [address] [place] [address] Cat Scan Report Signed Patient: HUGH CAPUTO MR#: [id number] : 1960 Acct:[id number] Age/Sex: 60 / M ADM Date: 02/05/21 Loc: 3A A387-[address]: CARROL VILLA MD Ordering Physician: MARÍA MCCULLOUGH MD Date of Service: 02/05/21 Procedure(s): CT abdomen pelvis wo con Accession Number(s): [id number] cc: MARÍA MCCULLOUGH MD CT ABDOMEN AND PELVIS WITHOUT CONTRAST HISTORY: lower abd pain n/v COMPARISON: None. TECHNIQUE: Axial CT images were obtained through the abdomen and pelvis without IV contrast. Sagittal and coronal reformatted images. All CT scans at this location are performed using CT dose reduction for ALARA by means of automated exposure control. FINDINGS: CT ABDOMEN: Lung Bases: Clear. Liver: No significant abnormality. Biliary: No significant abnormality. Spleen: No significant abnormality. Unenlarged. Pancreas: No significant abnormality. Adrenals: No significant abnormality. Kidneys: No significant abnormality. Lymphatics: No lymphadenopathy. Vasculature: No significant abnormality. Bowel/Peritoneum: No significant abnormality. No free air. No free fluid. Normal appendix. CT PELVIS: : The bladder is empty but grossly unremarkable. Normal prostate gland. Osseous Structures: Mild to moderate degenerative changes in the lower lumbar spine. No acute osseous abnormality or bone lesion. Additional Findings: A moderate sized umbilical hernia containing fat measures 5.5 x 4.5 cm. IMPRESSION: No acute inflammatory process is appreciated. No clear explanation for lower abdominal pain with in the abdomen or pelvis. Moderate hiatal hernia containing fat. Signer Name: Brandon Pinon Jr, MD Signed: 02/05/2021 11:03 AM Workstation Name: [id number] Transcribed By: TTR Dictated By: BRANDON PINON JR, MD [facility] Authenticated By: BRANDON PINON JR, MD Signed Date/Time: 02/05/21 1103 DD/ 1101 - Medical Decision Making Differential diagnosis, including but not limited to: Azotemia, uremia, metabolic acidosis, colitis, diverticulitis, persistent junctional tachycardia Assessment and plan: 60-year-old gentleman, who had an incomplete outpatient h emodialysis session recently, likely presenting with symptomatic azotemia and uremia, and metabolic acidosis. He also has hyperkalemia, with potassium of 5.5. Abdomen is soft and benign, nontender after acquisition of CT scan of the abdomen pelvis he denies abdominal pain and tenderness at this time. We have recommended admission to the medical service for urgent hemodialysis. The patient is amenable to this plan of care. Contacted patient's private milk collector, Dr. Blevins; have discussed the patient's history, physical, pertinent laboratory studies and imaging studies. He has evaluated the patient, and will place hemodialysis orders. Hospital physician, Dr. Rowena Villa to admit to [facility] Defer to inpatient team to further evaluate and manage/work-up patient's persistent junctional tachycardia Critical care attestation.: If time is entered above; I have spent that time in minutes in the direct care of this critically ill patient, excluding procedure time. ED Disposition Clinical Impression: ESRD needing dialysis, Azotemia, Uremia, Lower abdominal pain Disposition: OP ADMIT IP TO THIS HOSP Is pt being admited?: Yes Does the pt Need Aspirin: No Condition: Good
--- NOTE | 2021-02-05 09:03 | Consultation ---
History of Present Illness - Reason for Consult Consult date: 02/05/21 end stage renal disease, hyperkalemia - History of Present Illness The patient is a 60 YO male with history significant for DM type 2, HTN, Obesity, Anemia, Diabetic nephropathy, Proteinuria and ESRD on hemodialysis (TTS) who presented to [facility] ED 02/05 with c/o N, V and abdominal discomfort for the past 2 days. The patient reports that during his last hemodialysis session, he felt like he was on the dialysis machine longer than usual. He also reports fatigue and decreased appetite. His symptoms are better now. Labs significant for K 5.5, Creat 13 and BUN 60. Nephrology was consulted for treatment of ESRD. Past History Past Medical History: other (See HPI.) Medications and Allergies Allergies Allergy/AdvReac Type Severity Reaction Status Date / Time No Known Allergies Allergy Unverified 05/09/19 11:44 Home Medications Medication Instructions Recorded Confirmed Last Taken Type Losartan [Cozaar] 50 mg PO QDAY #30 tablet 12/16/20 Unknown Rx Lasix TAB 40 mg PO DAILY 02/05/21 02/05/21 02/04/21 History Tresiba 50 units SC DAILY 02/05/21 02/05/21 02/04/21 History Active Meds: Active Medications Ondansetron HCl (Ondansetron 4 Mg Odt Tab) 4 mg PO Q6HR PRN PRN Reason: Nausea Review of Systems Constitutional: anorexia, fatigue, no weight loss, no weight gain, no fever, no chills, no weakness Cardiovascular: high blood pressure, no chest pain, no edema, no syncope, no lightheadedness, no leg edema Respiratory: no cough, no hemoptysis, no shortness of breath, no dyspnea on exertion Gastrointestinal: abdominal pain, nausea, vomiting, no diarrhea, no melena Genitourinary Male: no dysuria, no hematuria Rectal: no bleeding Integumentary: no rash, no wounds, no jaundice Neurological: no convulsions, no aphasia, no change in speech, no change in mentation Results - Lab Results 02/05/21 07:04 02/05/21 07:04 Most recent lab results Calcium 9.0 mg/dL (8.4-10.2) 02/05/21 07:04 Assessment and Plan 1. ESRD: Patient is on maintenance hemodialysis three times a week, TTS schedule. Meds dosage based on GFR. Last outpatient HD 02/03. Hemodialysis today. 2. FEN: Hyperkalemia, HD today. Monitor lytes and volume status. 3. Abdominal pain: CT abdomen negative. 4. DM type 2. 5. Hypertension: Monitor BP. 6. Normochromic anemia, POA: 2/2 ESRD. Epogen was needed. Subjective: Patient was seen and examined at the bedside. Examination: General appearance: well-developed, well-nourished, appears stated age, no distress HEENT: ATNC, JONATHAN, hearing intact, vision intact Neck: neck supple, trachea midline Respiratory: Clear to Auscultation Heart: regular, S1S2, no murmur Gastrointestinal: soft, normoactive bowel sounds, not tender Integumentary: warm, dry, R leg rash Neurologic: no focal deficit, no asterixis, alert and oriented x3 Ext: no edema Psychiatric: cooperative Hemodialysis access: R IJ tunnel catheter
[2021-02-05] MEDS ORDERED: ACETAMINOPHEN 325 MG TAB PO ONE (09:05)
[2021-02-05] MEDS ORDERED: NORepinephrine/NS 4 MG-250 ML 0 MG/0 ML BAG IV ONE (09:28)
[2021-02-05] MEDS ORDERED: SODIUM CHLORIDE 0.9% 100 ML IV PRN (09:30)
[2021-02-05] MEDS ORDERED: HEPARIN 10,000 UNITS/10 ML VIAL IV PRN (09:30)
--- NOTE | 2021-02-05 10:31 | History and Physical Report ---
History of Present Illness Date of examination: 02/05/21 Date of admission: 02/05/21 09:12 Chief complaint: Nausea vomiting and abdominal pain History of present illness: 60-year-old male patient with significant past medical history of end-stage renal disease on hemodialysis type 2 diabetes mellitus hypertension Presented to the emergency room with nausea vomiting abdominal pain during last dialysis and he feels that he had incomplete dialysis No patient complains of vague abdominal pain and cramping with nausea vomiting and generalized weakness. And also to complete his dialysis session Initial evaluation is consistent with hyperkalemia, hypermagnesemia and very high creatinine levels of more than 13. Patient received Tylenol and Zofran with significant improvement Patient denies any fever headache dizziness, denies shortness of breath, denies exposure to persons with Covid Nephrology has evaluated the patient and advised stat dialysis CT abdomen and pelvis no acute abnormalities noted Past History Past Medical History: diabetes, dialysis, ESRD, hypertension, other (Peripheral neuropathy) Past Surgical History: Other (AV graft) Social history: denies: smoking, alcohol abuse, prescription drug abuse Family history: no significant family history Medications and Allergies Allergies Allergy/AdvReac Type Severity Reaction Status Date / Time No Known Allergies Allergy Unverified 05/09/19 11:44 Home Medications Medication Instructions Recorded Confirmed Last Taken Type Losartan [Cozaar] 50 mg PO QDAY #30 tablet 12/16/20 02/04/21 09:00 Rx Lasix TAB 40 mg PO DAILY 02/05/21 02/05/21 02/04/21 History Tresiba 50 units SC DAILY 02/05/21 02/05/21 02/04/21 History Active Meds: Active Medications Aspirin (Aspirin Ec 81 Mg Tab) 81 mg PO QDAY SARAH Atorvastatin Calcium (Atorvastatin 20 Mg Tab) 20 mg PO QHS [facility] Calcium Acetate (Calcium Acetate 667 Mg Cap) 1,334 mg PO TIDWM [facility] Ferrous Sulfate (Ferrous Sulfate 325 Mg Tab) 325 mg PO DAILY [facility] Heparin Sodium (Porcine) (Heparin 10,000 Units/10 Ml Vial) 3,000 unit IV RIVER PRN PRN Reason: hemodialysis Hydralazine HCl (Hydralazine 100 Mg Tab) 100 mg PO TID SARAH Hydrochlorothiazide (Hydrochlorothiazide 25 Mg Tab) 25 mg PO QDAY [facility] Sodium Chloride (Nacl 0.9%) 100 mls @ 999 mls/hr IV RIVER PRN PRN Reason: Hypotension Losartan Potassium (Losartan 50 Mg Tab) 50 mg PO QDAY [facility] Metoprolol Succinate (Metoprolol Succinate Xl 100 Mg Tab) 100 mg PO QDAY [facility] Nifedipine (Nifedipine Xl 60 Mg Tab) 60 mg PO Q12HR [facility] Ondansetron HCl (Ondansetron 4 Mg Odt Tab) 4 mg PO Q6HR PRN PRN Reason: Nausea Review of Systems Constitutional: fatigue, weakness, no weight loss, no weight gain Ears, nose, mouth and throat: no nasal congestion, no nasal discharge Cardiovascular: no chest pain, no orthopnea, no palpitations Respiratory: no cough, no shortness of breath Gastrointestinal: abdominal pain, nausea, vomiting Genitourinary Male: other (Incomplete dialysis during last session), no dysuria, no flank pain Musculoskeletal: no myalgias, no arthritis Integumentary: no rash, no lesions Neurological: no seizures, no syncope, no tremors Psychiatric: no anxiety, no depression Endocrine: no cold intolerance, no heat intolerance Hematologic/Lymphatic: no easy bruising, no easy bleeding Allergic/Immunologic: no urticaria, no allergic rhinitis Exam - Constitutional Vitals: Temp Pulse Resp BP Pulse Ox 106 H 12 151/85 98 02/05/21 09:13 02/05/21 09:13 02/05/21 09:13 02/05/21 09:13 General appearance: Present: no acute distress, well-nourished - EENT Eyes: Present: PERRL, EOM intact - Neck Neck: Present: supple, normal ROM - Respiratory Respiratory effort: normal Respiratory: bilateral: diminished, negative: rales, rhonchi, wheezing - Cardiovascular Rhythm: regular Heart Sounds: Present: S1 & S2 - Extremities Extremities: no ischemia, No edema - Abdominal General gastrointestinal: Present: soft, non-tender, non-distended, normal bowel sounds - Integumentary Integumentary: Present: clear, warm - Musculoskeletal Musculoskeletal: strength equal bilaterally - Psychiatric Psychiatric: appropriate mood/affect, cooperative - Neurologic Neurologic: CNII-XII intact, moves all extremities Results - Labs CBC & Chem 7: 02/05/21 07:04 02/05/21 07:04 Labs: Abnormal lab results 02/05/21 02/05/21 Range/Units 07:04 07:04 Lymph % (Auto) 9.5 L (13.4-35.0) % Lymph # (Auto) 0.8 L (1.2-5.4) K/mm3 Seg Neutrophils % 84.6 H (40.0-70.0) % Potassium 5.5 H (3.6-5.0) mmol/L Chloride 85.6 L (98-107) mmol/L BUN 60 H (9-20) mg/dL Creatinine 13.0 H (0.8-1.3) mg/dL Glucose 160 H (75-100) mg/dL Assessment and Plan --Acute gastritis; With severe nausea vomiting antiemetics, IV Protonix, supportive care CT abdomen and pelvis no acute abnormality noted Consider GI consult if no improvement --Hyperkalemia; Dialysis per schedule Monitor electrolytes, nephrology following --End-stage renal disease; on hemodialysis Nephrology consulted, HD per schedule Monitor renal function avoid nephrotoxins --HLD (hyperlipidemia). Continue statin, low-cholesterol diet -- HTN (hypertension) Moderate control Continue current antihypertensives and as needed medications. --Anemia of ESRD Procrit during dialysis Closely monitor H&H transfuse as needed -- DVT prophylaxis On Heparin renal dose We will closely monitor the patient and adjust management as needed Follow nephrology evaluation and recommendations Plan of care reviewed with the patient and his nurse
--- NOTE | 2021-02-05 11:08 | Cat Scan Report ---
CT ABDOMEN AND PELVIS WITHOUT CONTRAST HISTORY: lower abd pain n/v COMPARISON: None. TECHNIQUE: Axial CT images were obtained through the abdomen and pelvis without IV contrast. Sagittal and coronal reformatted images. All CT scans at this location are performed using CT dose reduction for ALARA by means of automated exposure control. FINDINGS: CT ABDOMEN: Lung Bases: Clear. Liver: No significant abnormality. Biliary: No significant abnormality. Spleen: No significant abnormality. Unenlarged. Pancreas: No significant abnormality. Adrenals: No significant abnormality. Kidneys: No significant abnormality. Lymphatics: No lymphadenopathy. Vasculature: No significant abnormality. Bowel/Peritoneum: No significant abnormality. No free air. No free fluid. Normal appendix. CT PELVIS: : The bladder is empty but grossly unremarkable. Normal prostate gland. Osseous Structures: Mild to moderate degenerative changes in the lower lumbar spine. No acute osseous abnormality or bone lesion. Additional Findings: A moderate sized umbilical hernia containing fat measures 5.5 x 4.5 cm. IMPRESSION: No acute inflammatory process is appreciated. No clear explanation for lower abdominal pain with in t he abdomen or pelvis. Moderate hiatal hernia containing fat. Signer Name: Brandon Pinon Jr, MD Signed: 02/05/2021 11:03 AM Workstation Name: [id number]
[2021-02-05 11:19] LABS: Hepatitis B Surface Antigen Non-Reactive (Negative); Hepatitis C Virus Antibody Non-Reactive (NonReactive)
[2021-02-05] MEDS ORDERED: hydroCHLOROthiazide 25 MG TAB PO SCH (12:00)
[2021-02-05] MEDS ORDERED: NIFEdipine XL 60 MG TAB PO SCH (12:00)
[2021-02-05] MEDS ORDERED: METOPROLOL SUCCINATE XL 100 MG TAB PO SCH (12:00)
[2021-02-05] MEDS: ONDANSETRON 4 MG ODT TAB PO PRN ×2 (12:56→20:56)
[2021-02-05] MEDS: CALCIUM ACETATE 667 MG CAP PO SCH (12:58)
[2021-02-05] MEDS: ASPIRIN EC 81 MG TAB PO SCH (12:59)
[2021-02-05] MEDS ORDERED: hydrALAZINE 100 MG TAB PO SCH (14:00)
[2021-02-05] MEDS ORDERED: ZOLPIDEM 5 MG TAB PO PRN (19:21)
[2021-02-05] MEDS ORDERED: ACETAMINOPHEN 325 MG TAB PO PRN (19:21)
[2021-02-05] MEDS ORDERED: DOCUSATE SODIUM 100 MG CAP PO PRN (19:21)
[2021-02-05] MEDS: HEPARIN 5,000 UNIT/1 ML VIAL SUB-Q SCH (21:09)
[2021-02-05] MEDS ORDERED: chlorproMAZINE 25 MG TAB PO PRN (23:57)
[2021-02-06] MEDS: ONDANSETRON 4 MG ODT TAB PO PRN (04:17)
[2021-02-06] MEDS: FUROSEMIDE 40 MG TAB PO SCH (05:11)
[2021-02-06] MEDS: CALCIUM ACETATE 667 MG CAP PO SCH ×4 (07:39→17:12)
--- NOTE | 2021-02-06 08:35 | Progress Note ---
Assessment and Plan 1. ESRD: Patient is on maintenance hemodialysis three times a week, TTS schedule. Meds dosage based on GFR. Last outpatient HD 02/03. Hemodialysis: 02/05. 2. FEN: Hyperkalemia, s/p HD. Monitor lytes and volume status. 3. Abdominal pain: CT abdomen negative. 4. DM type 2. 5. Hypertension: Monitor BP. 6. Normochromic anemia, POA: 2/2 ESRD. Epogen was needed. Subjective: Patient was seen and examined at the bedside. Still has N & V. Examination: General appearance: well-developed, well-nourished, appears stated age, no distress HEENT: ATNC, JONATHAN, hearing intact, vision intact Neck: neck supple, trachea midline Respiratory: Clear to Auscultation Heart: regular, S1S2, no murmur Gastrointestinal: soft, normoactive bowel sounds, not tender Integumentary: warm, dry, R leg rash Neurologic: no focal deficit, no asterixis, alert and oriented x3 Ext: no edema Psychiatric: cooperative Hemodialysis access: R IJ tunnel catheter Subjective Date of service: 02/06/21 Objective - Vital Signs Vital signs: Vital Signs - 12hr 02/05/21 02/05/21 02/05/21 21:06 21:28 23:49 Temperature 99.6 F Pulse Rate 89 85 Respiratory 18 18 Rate Blood Pressure 151/84 118/82 O2 Sat by Pulse 100 95 95 Oximetry 02/06/21 05:43 Temperature 99.2 F Pulse Rate 87 Respiratory 20 Rate Blood Pressure 125/74 O2 Sat by Pulse 99 Oximetry - Lab 02/05/21 07:04 02/05/21 07:04 Most recent lab results Calcium 9.0 mg/dL (8.4-10.2) 02/05/21 07:04 Magnesium 2.40 mg/dL (1.7-2.3) H 02/05/21 09:00 Medications & Allergies - Medications Allergies/Adverse Reactions: Allergies No Known Allergies Allergy (Unverified 05/09/19 11:44) Home Medications: Home Medications Medication Instructions Recorded Confirmed Last Taken Type Losartan [Cozaar] 50 mg PO QDAY #30 tablet 12/16/20 02/06/21 02/04/21 09:00 Rx Lasix TAB 40 mg PO DAILY 02/05/21 02/05/21 02/04/21 History Tresiba 50 units SC DAILY 02/05/21 02/05/21 02/04/21 History Active Medications: Generic Name Dose Route Start Last Admin Trade Name Tammy PRN Reason Stop Dose Admin Acetaminophen 650 mg 02/05/21 19:21 Acetaminophen 325 Mg Tab PO Q4H PRN Pain, Mild (1-3) Aspirin 81 mg 02/05/21 14:00 02/05/21 12:59 Aspirin Ec 81 Mg Tab PO 81 mg QDAY [facility] Administration Calcium Acetate 1,334 mg 02/05/21 12:00 02/06/21 07:39 Calcium Acetate 667 Mg Cap PO Not Given TIDWM [facility] Chlorpromazine HCl 25 mg 02/05/21 23:57 Chlorpromazine 25 Mg Tab PO Q6H PRN Hiccups Docusate Sodium 100 mg 02/05/21 19:21 Docusate Sodium 100 Mg Cap PO BID PRN Constipation Ferrous Sulfate 325 mg 02/06/21 10:00 Ferrous Sulfate 325 Mg Tab PO DAILY [facility] Furosemide 40 mg 02/06/21 06:00 02/06/21 05:11 Furosemide 40 Mg Tab PO 40 mg DAILY@0600 [facility] Administration Heparin Sodium (Porcine) 3,000 unit 02/05/21 09:30 Heparin 10,000 Units/10 Ml Vial IV RIVER PRN hemodialysis Heparin Sodium (Porcine) 5,000 unit 02/05/21 22:00 02/05/21 21:09 Heparin 5,000 Unit/1 Ml Vial SUB-Q 5,000 unit Q12HR [facility] Administration Sodium Chloride 100 mls @ 999 mls/hr 02/05/21 09:30 Nacl 0.9% IV RIVER PRN Hypotension Insulin Glargine 50 units 02/06/21 10:00 Insulin Glargine 100 Units/Ml SUB-Q DAILY [facility] Losartan Potassium 50 mg 02/06/21 10:00 Losartan 50 Mg Tab PO QDAY [facility] Ondansetron HCl 4 mg 02/05/21 08:55 02/06/21 04:17 Ondansetron 4 Mg Odt Tab PO 4 mg Q6HR PRN Administration Nausea Pantoprazole Sodium 40 mg 02/06/21 10:00 Pantoprazole 40 Mg Inj IV QDAY [facility] Zolpidem Tartrate 5 mg 02/05/21 19:21 02/06/21 00:14 Zolpidem 5 Mg Tab PO 5 mg QHS PRN Administration Sleep
[2021-02-06] MEDS: FERROUS SULFATE 325 MG TAB PO SCH (09:36)
[2021-02-06] MEDS: ASPIRIN EC 81 MG TAB PO SCH (09:36)
[2021-02-06] MEDS: LOSARTAN 50 MG TAB PO SCH (09:36)
[2021-02-06] MEDS: INSULIN GLARGINE 100 UNITS/ML SUB-Q SCH (09:36)
[2021-02-06] MEDS: HEPARIN 5,000 UNIT/1 ML VIAL SUB-Q SCH ×2 (09:36→21:00)
[2021-02-06] MEDS ORDERED: PANTOPRAZOLE 40 MG INJ IV SCH (10:00)
[2021-02-06] MEDS ORDERED: TRESIBA 50 UNIT SC SCH (10:00)
--- NOTE | 2021-02-06 10:10 | Electrocardiograph Report ---
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 Non T wave changes in lateral precordial leads improved. Electronically Signed On 02-06-2021 10:10:24 EDT by Kareem Gibbons
--- NOTE | 2021-02-06 12:57 | Progress Note ---
Assessment and Plan --Acute gastritis; With severe nausea vomiting antiemetics, IV Protonix, supportive care CT abdomen and pelvis no acute abnormality noted Nausea vomiting has improved. Patient mainly complained of more respiratory issues now. I think this is secondary to uremia. Consider GI consult if no improvement --Hyperkalemia; Dialysis per schedule patient to receive hemodialysis again today. Monitor electrolytes, nephrology following --End-stage renal disease; on hemodialysis Nephrology consulted, HD per schedule Monitor renal function avoid nephrotoxins Symptoms secondary to uremia. --HLD (hyperlipidemia). Continue statin, low-cholesterol diet -- HTN (hypertension) Moderate control Continue current antihypertensives and as needed medications. --Shortness of breath. Patient did complain of previously having a pneumonia. We will follow-up chest x-ray and nebulizer treatments. Body habitus suspect underlying COPD. --Anemia of ESRD Procrit during dialysis Closely monitor H&H transfuse as needed -- DVT prophylaxis On Heparin renal dose Subjective Date of service: 02/06/21 Principal diagnosis: End-stage renal disease, irretractable nausea vomiting. Interval history: 60-year-old male patient with significant past medical history of end-stage renal disease on hemodialysis type 2 diabetes mellitus hypertension Presented to the emergency room with nausea vomiting abdominal pain during last dialysis and he feels that he had incomplete dialysis No patient complains of vague abdominal pain and cramping with nausea vomiting and generalized weakness. And also to complete his dialysis session Initial evaluation is consistent with hyperkalemia, hypermagnesemia and very high creatinine levels of more than 13. Patient received Tylenol and Zofran with significant improvement Patient denies any fever headache dizziness, denies shortness of breath, denies exposure to persons with Covid Nephrology has evaluated the patient and advised stat dialysis CT abdomen and pelvis no acute abnormalities noted Objective - Constitutional Vitals: Vital Signs - 12hr 02/06/21 02/06/21 05:43 11:36 Temperature 99.2 F 99.2 F Pulse Rate 87 95 H Respiratory 20 18 Rate Blood Pressure 125/74 119/76 O2 Sat by Pulse 99 100 Oximetry General appearance: Present: no acute distress, well-nourished - EENT Eyes: PERRL, EOM intact ENT: hearing intact, clear oral mucosa Ears: bilateral: normal - Neck Neck: supple, normal ROM - Respiratory Respiratory effort: normal Respiratory: bilateral: diminished, rhonchi (bilateral) - Breasts Breasts: normal - Cardiovascular Rhythm: regular Heart Sounds: Present: S1 & S2. Absent: gallop, rub Extremities: pulses intact, No edema, normal color, Full ROM - Gastrointestinal General gastrointestinal: Present: soft, non-tender, non-distended, normal bowel sounds - Genitourinary Male genitourinary: normal - Integumentary Integumentary: clear, warm, dry - Musculoskeletal Musculoskeletal: 1, strength equal bilaterally - Neurologic Neurologic: moves all extremities - Psychiatric Psychiatric: memory intact, appropriate mood/affect, intact judgment & insight - Labs CBC & Chem 7: 02/05/21 07:04 02/05/21 07:04 Labs: Abnormal lab results 02/05/21 02/06/21 Range/Units 21:16 07:27 POC Glucose 185 H 170 H (70-105) mg/dL
[2021-02-06] MEDS: BENZONATATE 100 MG CAP PO SCH ×2 (13:29→21:00)
[2021-02-06] MEDS ORDERED: ALBUTEROL 2.5 MG/3 ML NEBU IH SCH ×2 (14:00→14:30)
--- NOTE | 2021-02-06 14:50 | XRay Report ---
CHEST 2 VIEWS INDICATION: sob. COMPARISON: 12/12/2020 FINDINGS: Support devices: A right IJ permacath has been inserted which terminates in the superior right atrium . Heart: Within normal limits. Lungs/pleura: No acute air space or interstitial disease. No pneumothorax. Additional findings: None. IMPRESSION: No acute findings. Signer Name: Brandon Pinon Jr, MD Signed: 02/06/2021 2:46 PM Workstation Name: [email or web address]
[2021-02-06] MEDS ORDERED: SODIUM CHLORIDE 0.9% 500 ML 500 ML IV ONE (22:16)
[2021-02-07] MEDS: FUROSEMIDE 40 MG TAB PO SCH (06:31)
[2021-02-07] MEDS: BENZONATATE 100 MG CAP PO SCH ×2 (06:31→17:00)
[2021-02-07] MEDS ORDERED: PANTOPRAZOLE 40 MG TAB PO SCH (08:30)
[2021-02-07] MEDS: CALCIUM ACETATE 667 MG CAP PO SCH ×3 (08:37→17:01)
[2021-02-07] MEDS: INSULIN GLARGINE 100 UNITS/ML SUB-Q SCH (10:00)
--- NOTE | 2021-02-07 10:43 | Discharge Summary ---
Providers - Providers Date of Admission: 02/05/21 09:12 Date of discharge: 02/07/21 Attending physician: ZION LEONARD 02/05/21 08:55 Consult to Physician [CONS] Urgent Comment: Consulting Provider: HARRIS HERNANDEZ Physician Instructions: Reason For Exam: esrd Primary care physician: INSTITUTION[facility] COOK Hospitalization Condition: Good Hospital course: Patient presented with acute gastritis associated with nausea vomiting after missing hemodialysis. Patient was brought in dialyzed x2 consecutive days. Symptoms of uremia resolved. No further nausea vomiting. Patient able to keep food down breakfast grits eggs toast. Without difficulty at all. Stable for discharge. Symptoms secondary to uremia patient follow-up chest x-ray unremarkable. Blood sugars from 09 24-. Disposition: - TO HOME OR SELFCARE Final Discharge Diagnosis (Prints w/discharge instructions): gastritis - Discharge Diagnoses (1) Acute gastritis Status: Acute Comment: Secondary to uremia resolved with hemodialysis and a ntiemetics. (2) ESRD needing dialysis Status: Acute Comment: Receive hemodialysis tolerated well. (3) Uremia Status: Acute (4) Essential hypertension Status: Acute (5) IDDM (insulin dependent diabetes mellitus) Status: Chronic Core Measure Documentation - Palliative Care Palliative Care/ Comfort Measures: Not Applicable - Core Measures Any of the following diagnoses?: none Exam - Constitutional Vitals: Temp Pulse Resp BP Pulse Ox 97.9 F 80 16 94/39 97 02/07/21 09:47 02/07/21 09:47 02/07/21 09:47 02/07/21 09:47 02/07/21 09:47 General appearance: Present: no acute distress, well-nourished - EENT Eyes: Present: PERRL ENT: hearing intact, clear oral mucosa - Neck Neck: Present: supple, normal ROM - Respiratory Respiratory effort: normal Respiratory: bilateral: CTA - Cardiovascular Heart Sounds: Present: S1 & S2. Absent: rub, click - Extremities Extremities: pulses symmetrical, No edema Peripheral Pulses: within normal limits - Abdominal General gastrointestinal: Present: soft, non-tender, non-distended, normal bowel sounds Male genitourinary: Present: normal - Integumentary Integumentary: Present: clear, warm, dry - Musculoskeletal Musculoskeletal: gait normal, strength equal bilaterally - Psychiatric Psychiatric: appropriate mood/affect, intact judgment & insight - Neurologic Neurologic: CNII-XII intact, moves all extremities Plan Activity: no restrictions Weight Bearing Status: Full Weight Bearing Diet: renal Special Instructions: restrict fluid intake to (2l) Follow up with: PRIMARY CARE, [Primary Care Provider] - 7 Days Prescriptions: Iron,Carb/Vit C/Vit B12/Folic [Fe C Plus Tablet] 1 each PO 1XW #20 tablet Pantoprazole [Protonix TAB] 40 mg PO QDAC #30 tablet Ondansetron [Zofran ODT TAB] 4 mg PO Q6HR PRN #14 tab.rapdis PRN Reason: Nausea
[2021-02-07] MEDS: LOSARTAN 50 MG TAB PO SCH (11:46)
[2021-02-07] MEDS: FERROUS SULFATE 325 MG TAB PO SCH (11:47)
[2021-02-07] MEDS: ASPIRIN EC 81 MG TAB PO SCH (11:48)
[2021-02-07] MEDS: HEPARIN 5,000 UNIT/1 ML VIAL SUB-Q SCH (12:38)
--- NOTE | 2021-02-07 14:32 | Progress Note ---
Assessment and Plan 1. ESRD: Patient is on maintenance hemodialysis three times a week, TTS schedule. Meds dosage based on GFR. Last outpatient HD 02/03. Hemodialysis: 02/05, 02/07. 2. FEN: Hyperkalemia, s/p HD. Monitor lytes and volume status. 3. Abdominal pain: CT abdomen negative. 4. DM type 2. 5. Hypertension: Monitor BP. 6. Normochromic anemia, POA: 2/2 ESRD. Epogen was needed. Subjective: Patient was seen and examined at the bedside. Doing better. Examination: General appearance: well-developed, well-nourished, appears stated age, no distr ess HEENT: ATNC, JONATHAN, hearing intact, vision intact Neck: neck supple, trachea midline Respiratory: Clear to Auscultation Heart: regular, S1S2, no murmur Gastrointestinal: soft, normoactive bowel sounds, not tender Integumentary: warm, dry, R leg rash Neurologic: no focal deficit, no asterixis, alert and oriented x3 Ext: no edema Psychiatric: cooperative Hemodialysis access: R IJ tunnel catheter Subjective Date of service: 02/07/21 Principal diagnosis: End-stage renal disease, irretractable nausea vomiting. Objective - Vital Signs Vital signs: Vital Signs - 12hr 02/07/21 02/07/21 06:08 11:05 Temperature 97.9 F 98.6 F Pulse Rate 87 90 Respiratory 16 16 Rate Blood Pressure 95/61 Blood Pressure 150/90 [l] O2 Sat by Pulse 96 95 Oximetry - Lab 02/05/21 07:04 02/05/21 07:04 Most recent lab results Calcium 9.0 mg/dL (8.4-10.2) 02/05/21 07:04 Magnesium 2.40 mg/dL (1.7-2.3) H 02/05/21 09:00 Medications & Allergies - Medications Allergies/Adverse Reactions: Allergies No Known Allergies Allergy (Unverified 05/09/19 11:44) Home Medications: Home Medications Medication Instructions Recorded Confirmed Last Taken Type Losartan [Cozaar] 50 mg PO QDAY #30 tablet 12/16/20 02/06/21 02/04/21 09:00 Rx Lasix TAB 40 mg PO DAILY 02/05/21 02/05/21 02/04/21 History Tresiba 50 units SC DAILY 02/05/21 02/05/21 02/04/21 History Aspirin EC [Halfprin EC] 81 mg PO QDAY tablet 02/07/21 Unknown Rx Benzonatate [Tessalon Perles] 100 mg PO Q8HR capsule 02/07/21 Unknown Rx Calcium Acetate [Phoslo] 1,334 mg PO TIDWM capsule 02/07/21 Unknown Rx Docusate Sodium [Colace CAP] 100 mg PO BID PRN capsule 02/07/21 Unknown Rx Insulin Glargine [Lantus VIAL] 50 units SUB-Q DAILY units 02/07/21 Unknown Rx Iron,Carb/Vit C/Vit B12/Folic [Fe 1 each PO 1XW #20 tablet 02/07/21 Unknown Rx C Plus Tablet] Ondansetron [Zofran ODT TAB] 4 mg PO Q6HR PRN #14 tab.rapdis 02/07/21 Unknown Rx Pantoprazole [Protonix TAB] 40 mg PO QDAC #30 tablet 02/07/21 Unknown Rx Zolpidem [Ambien] 5 mg PO QHS PRN tablet 02/07/21 Unknown Rx Active Medications: Generic Name Dose Route Start Last Admin Trade Name Freq PRN Reason Stop Dose Admin Acetaminophen 650 mg 02/05/21 19:21 Acetaminophen 325 Mg Tab PO Q4H PRN Pain, Mild (1-3) Albuterol 2.5 mg 02/06/21 14:30 Albuterol 2.5 Mg/3 Ml Nebu IH PRN SARAH Aspirin 81 mg 02/05/21 14:00 02/07/21 11:48 Aspirin Ec 81 Mg Tab PO Not Given QDAY SARAH Benzonatate 100 mg 02/06/21 14:00 02/07/21 06:31 Benzonatate 100 Mg Cap PO Not Given Q8HR SARAH Calcium Acetate 1,334 mg 02/05/21 12:00 02/07/21 12:39 Calcium Acetate 667 Mg Cap PO 1,334 mg TIDWM [facility]AH Administration Chlorpromazine HCl 25 mg 02/05/21 23:57 02/06/21 20:57 Chlorpromazine 25 Mg Tab PO 25 mg Q6H PRN Administration Hiccups Docusate Sodium 100 mg 02/05/21 19:21 Docusate Sodium 100 Mg Cap PO BID PRN Constipation Ferrous Sulfate 325 mg 02/06/21 10:00 02/07/21 11:47 Ferrous Sulfate 325 Mg Tab PO Not Given DAILY [facility] Furosemide 40 mg 02/06/21 06:00 02/07/21 06:31 Furosemide 40 Mg Tab PO Not Given DAILY@0600 [facility] Heparin Sodium (Porcine) 3,000 unit 02/05/21 09:30 Heparin 10,000 Units/10 Ml Vial IV RIVER PRN hemodialysis Heparin Sodium (Porcine) 5,000 unit 02/05/21 22:00 02/07/21 12:38 Heparin 5,000 Unit/1 Ml Vial SUB-Q Not Given Q12HR [facility] Sodium Chloride 100 mls @ 999 mls/hr 02/05/21 09:30 Nacl 0.9% IV RIVER PRN Hypotension Insulin Glargine 50 units 02/06/21 10:00 02/07/21 10:00 Insulin Glargine 100 Units/Ml SUB-Q Not Given DAILY [facility] Losartan Potassium 50 mg 02/06/21 10:00 02/07/21 11:46 Losartan 50 Mg Tab PO Not Given QDAY [facility] Ondansetron HCl 4 mg 02/05/21 08:55 02/06/21 04:17 Ondansetron 4 Mg Odt Tab PO 4 mg Q6HR PRN Administration Nausea Pantoprazole Sodium 40 mg 02/07/21 08:30 02/07/21 08:37 Pantoprazole 40 Mg Tab PO 40 mg QDAC [facility] Administration Zolpidem Tartrate 5 mg 02/05/21 19:21 02/06/21 00:14 Zolpidem 5 Mg Tab PO 5 mg QHS PRN Administration Sleep
[2021-02-07] MEDS ORDERED: MIDODRINE 5 MG TAB PO ONE (18:50)
[2021-02-07 20:47] VITALS: BP 102/68
== END 2021-02-07 21:55 | disposition home or self-care (01) ==
LOC: ED 05:52 → 3A 09:12
PROVIDERS: ADMIT Internal Medicine; ATTEND Internal Medicine
DX: K29.00 Acute gastritis without bleeding (principal); E87.5 Hyperkalemia; I12.0 Hypertensive chronic kidney disease with stage 5 chronic kidney disease or end stage renal disease; N18.6 End stage renal disease; E11.22 Type 2 diabetes mellitus with diabetic chronic kidney disease; D63.1 Anemia in chronic kidney disease; E78.5 Hyperlipidemia, unspecified; R79.89 Other specified abnormal findings of blood chemistry; R10.30 Lower abdominal pain, unspecified; Z99.2 Dependence on renal dialysis; Z79.899 Other long term (current) drug therapy; Z98.890 Other specified postprocedural states; Z79.82 Long term (current) use of aspirin
CPT/HCPCS: 36415; 71046; 74176; 80048; 80074; 82550; 82962; 83735; 85025; 93005; 94640; 96372; 96374; 99285; C9113; G0257; G0378; J1644; J7040; Q0161; J1815; Q0162

== ENCOUNTER 2021-02-10 12:00 | Inpatient (IN) | payer BC ==
--- NOTE | 2021-02-10 12:13 | Emergency Department Report ---
ED General Adult HPI - General Stated complaint: DIZZINESS/WEAKNESS PUI?: No Time Seen by Provider: 02/10/21 12:06 - History of Present Illness Initial comments: This is a 60-year-old male end-stage renal disease on dialysis with a Vas-Cath who was recently admitted for missed dialysis associated with gastritis. Patient tells me he left on the fifth. He states this was his scheduled dialysis day today. However he came to the emergency department after a syncopal episode. Patient states that he was feeling weak while going down the stairs. He was able to reach the hallway but then passed out. He stated he found himself on the floor but did not sustain any injury nor experiencing any painful area. He did not complain of shortness of breath, chest pain or abdominal pain. Patient states that he was having trouble with hiccups in the hospital. He was treated with Thorazine. He stated that made his blood pressure go down and there was difficulty in dialyzing him. He states that he took his antihypertensive medicine yesterday but not today. He also states that is not unusual for him to have problems with his blood pressure during dialysis. However, he has had no recent change in his medication. The only new prescription I could identify as well was for Protonix for his gastritis. He states that he has not been hiccuping since he left the hospital. He however has not been eating he states and vomited once. He had no signs of hematemesis nor melena. He states he was a bit constipated but this has resolved. He denies any recent fever or chills. He has no respiratory symptoms. He presented with a systolic blood pressure in the low 90s, awake and alert. He is on multiple antihypertensive medications. Recent admission 02/23 missed dialysis, etc: Hospitalization Condition: Good Hospital course: Patient presented with acute gastritis associated with nausea vomiting after missing hemodialysis. Patient was brought in dialyzed x2 consecutive days. Symptoms of uremia resolved. No further nausea vomiting. Patient able to keep food down breakfast grits eggs toast. Without difficulty at all. Stable for discharge. Symptoms secondary to uremia patient follow-up chest x-ray unremarkable. Blood sugars from 20- 40. Disposition: - TO HOME OR SELFCARE Final Discharge Diagnosis (Prints w/discharge instructions): gastritis - Discharge Diagnoses (1) Acute gastritis Status: Acute Comment: Secondary to uremia resolved with hemodialysis and antiemetics. (2) ESRD needing dialysis Status: Acute Comment: Receive hemodialysis tolerated well. (3) Uremia Status: Acute (4) Essential hypertension Status: Acute (5) IDDM (insulin dependent diabetes mellitus) Status: Chronic -: Gradual, hour(s) Associated Symptoms: denies other symptoms (As per HPI. No cough pain complaints.), loss of appetite, malaise, nausea/vomiting (Now resolved), weakness. denies: confusion, chest pain, cough, fever/chills, headaches, shortness of breath - Related Data Home Medications Medication Instructions Recorded Confirmed Last Taken Lasix TAB 40 mg PO DAILY 02/05/21 02/05/21 02/04/21 Tresiba 50 units SC DAILY 02/05/21 02/05/21 02/04/21 Previous Rx's Medication Instructions Recorded Last Taken Type Losartan [Cozaar] 50 mg PO QDAY #30 tablet 12/16/20 02/04/21 09:00 Rx Aspirin EC [Halfprin EC] 81 mg PO QDAY tablet 02/07/21 Unknown Rx Benzonatate [Tessalon Perles] 100 mg PO Q8HR capsule 02/07/21 Unknown Rx Calcium Acetate [Phoslo] 1,334 mg PO TIDWM capsule 02/07/21 Unknown Rx Docusate Sodium [Colace CAP] 100 mg PO BID PRN capsule 02/07/21 Unknown Rx Insulin Glargine [Lantus VIAL] 50 units SUB-Q DAILY units 02/07/21 Unknown Rx Iron,Carb/Vit C/Vit B12/Folic [Fe 1 each PO 1XW #20 tablet 02/07/21 Unknown Rx C Plus Tablet] Ondansetron [Zofran ODT TAB] 4 mg PO Q6HR PRN #14 tab.rapdis 02/07/21 Unknown Rx Pantoprazole [Protonix TAB] 40 mg PO QDAC #30 tablet 02/07/21 Unknown Rx Zolpidem [Ambien] 5 mg PO QHS PRN tablet 02/07/21 Unknown Rx Allergies Allergy/AdvReac Type Severity Reaction Status Date / Time No Known Allergies Allergy Unverified 05/09/19 11:44 ED Review of Systems ROS: Stated complaint: DIZZINESS/WEAKNESS Other details as noted in HPI Constitutional: denies: chills, fever Eyes: denies: eye pain, vision change ENT: denies: ear pain, throat pain Respiratory: denies: cough, shortness of breath Cardiovascular: denies: chest pain, palpitations Endocrine: no symptoms reported Gastrointestinal: denies: abdominal pain, nausea, diarrhea Genitourinary: denies: urgency, dysuria Musculoskeletal: denies: back pain, joint swelling, arthralgia Skin: denies: rash, lesions Neurological: denies: headache, weakness, paresthesias Psychiatric: denies: anxiety, depression Hematological/Lymphatic: denies: easy bleeding, easy bruising ED Past Medical Hx - Past Medical History Hx Hypertension: Yes Hx CVA: No Hx Heart Attack/AMI: No Hx Congestive Heart Failure: No Hx Diabetes: Yes Hx Deep Vein Thrombosis: No Hx Pulmonary Embolism: No Hx GERD: No Hx Liver Disease: No Hx Renal Disease: No Hx Sickle Cell Disease: No Hx Arthritis: No Hx Headaches / Migraines: No Hx Seizures: No Hx Kidney Stones: No Hx Psychiatric Treatment: No Hx Asthma: No Hx COPD: No Hx Tuberculosis: No Hx Dementia: No Hx HIV: No Additional medical history: anemia, dyslipidemia - Surgical History Additional Surgical History: Prostatectomy - Social History Smoking Status: Never Smoker Substance Use Type: None - Medications Home Medications: Home Medications Medication Instructions Recorded Confirmed Last Taken Type Losartan [Cozaar] 50 mg PO QDAY #30 tablet 12/16/20 02/06/21 02/04/21 09:00 Rx Lasix TAB 40 mg PO DAILY 02/05/21 02/05/21 02/04/21 History Tresiba 50 units SC DAILY 02/05/21 02/05/21 02/04/21 History Aspirin EC [Halfprin EC] 81 mg PO QDAY tablet 02/07/21 Unknown Rx Benzonatate [Tessalon Perles] 100 mg PO Q8HR capsule 02/07/21 Unknown Rx Calcium Acetate [Phoslo] 1,334 mg PO TIDWM capsule 02/07/21 Unknown Rx Docusate Sodium [Colace CAP] 100 mg PO BID PRN capsule 02/07/21 Unknown Rx Insulin Glargine [Lantus VIAL] 50 units SUB-Q DAILY units 02/07/21 Unknown Rx Iron,Carb/Vit C/Vit B12/Folic [Fe 1 each PO 1XW #20 tablet 02/07/21 Unknown Rx C Plus Tablet] Ondansetron [Zofran ODT TAB] 4 mg PO Q6HR PRN #14 tab.rapdis 02/07/21 Unknown Rx Pantoprazole [Protonix TAB] 40 mg PO QDAC #30 tablet 02/07/21 Unknown Rx Zolpidem [Ambien] 5 mg PO QHS PRN tablet 02/07/21 Unknown Rx ED Physical Exam - General General appearance: alert, in no apparent distress - Head Head exam: Present: atraumatic, normocephalic - Eye Eye exam: Present: normal appearance, PERRL, EOMI. Absent: scleral icterus - ENT ENT exam: Present: mucous membranes moist - Neck Neck exam: Present: normal inspection. Absent: tenderness, meningismus - Respiratory Respiratory exam: Present: normal lung sounds bilaterally. Absent: respiratory distress - Cardiovascular Cardiovascular Exam: Present: regular rate, normal rhythm. Absent: systolic murmur, diastolic murmur, rubs, gallop - GI/Abdominal GI/Abdominal exam: Present: soft, normal bowel sounds. Absent: distended, tenderness, guarding, rebound, rigid - Rectal Rectal exam: Present: deferred - Extremities Exam Extremities exam: Present: normal inspection - Back Exam Back exam: Present: normal inspection - Neurological Exam Neurological exam: Present: alert, oriented X3, CN II-XII intact. Absent: motor sensory deficit - Psychiatric Psychiatric exam: Present: normal affect, normal mood - Skin Skin exam: Present: warm, dry, intact, normal color. Absent: rash ED Course Vital Signs 02/10/21 02/10/21 02/10/21 12:10 12:15 12:26 Temperature 98.3 F Pulse Rate 87 85 Respiratory 14 13 Rate Blood Pressure 91/53 O2 Sat by Pulse 97 97 Oximetry - Reevaluation(s) Reevaluation #1: Discussed with Dr. Blevins. He will consult. Discussed with Dr. Leslie. Admit telemetry. 02/10/21 15:32 Reevaluation #2: Patient does not require emergency dialysis at this time. 02/10/21 15:33 ED Medical Decision Making - Lab Data Result diagrams: 02/10/21 13:28 02/10/21 13:28 Laboratory Results - last 24 hr 02/10/21 02/10/21 02/10/21 13:28 13:28 13:28 WBC 6.0 RBC 4.18 Hgb 11.9 Hct 36.3 MCV 87 MCH 29 MCHC 33 RDW 13.8 Plt Count 140 Lymph % (Auto) 15.6 [place] % (Auto) 8.8 H Eos % (Auto) 0.9 Baso % (Auto) 0.3 Lymph # (Auto) 0.9 L [place] # (Auto) 0.5 Eos # (Auto) 0.1 Baso # (Auto) 0.0 Seg Neutrophils % 74.4 H Seg Neutrophils # 4.5 PT 14.1 INR 1.04 APTT 27.1 Troponin T 0.094 H NT-Pro-B Natriuret Pep 2481 H Albumin/Globulin Ratio 1.7 - EKG Data -: EKG Interpreted by Me EKG shows normal: sinus rhythm (First-degree AV block), axis (Leftward axis) Rate: normal - EKG Data Interpretation: nonspecific ST-T wave raul - Radiology Data Radiology results: report reviewed, image reviewed Vas-Cath in site to. No acute process. Critical care attestation.: If time is entered above; I have spent that time in minutes in the direct care of this critically ill patient, excluding procedure time. ED Disposition Clinical Impression: Hypotensive episode, Elevated troponin, End-stage renal disease needing dialysis Cardiomyopathy Qualifiers: Cardiomyopathy type: unspecified Qualified Code(s): I42.9 - Cardiomyopathy, unspecified Disposition: 09 OP ADMIT IP TO THIS HOSP Is pt being admited?: Yes Does the pt Need Aspirin: Yes Condition: Stable Referrals: PRIMARY CARE, [Primary Care Provider] - 3-5 Days Time of Disposition: 15:40
[2021-02-10] MEDS ORDERED: SODIUM CHLORIDE 0.9% 250ML 250 ML IV ONE (12:24)
[2021-02-10 13:52] LABS: Basophils % (Auto) 0.3 % (0.0-1.8); Eosinophils # (Auto) 0.1 K/mm3 (0.0-0.4); Eosinophils % (Auto) 0.9 % (0.0-4.3); Hematocrit 36.3 % (35.5-45.6); Hemoglobin 11.9 gm/dl (11.8-15.2); Lymphocytes # (Auto) 0.9 K/mm3 (1.2-5.4); Lymphocytes % (Auto) 15.6 % (13.4-35.0); Mean Corpuscular HGB Conc 33 % (32-34); Mean Corpuscular Volume 87 fl (84-94); Monocytes # (Auto) 0.5 K/mm3 (0.0-0.8); Monocytes % (Auto) 8.8 % (0.0-7.3); Platelet Count 140 K/mm3 (140-440); Red Blood Count 4.18 M/mm3 (3.65-5.03); Red Cell Distribution Width 13.8 % (13.2-15.2)
[2021-02-10 14:06] LABS: INR 1.04 (0.87-1.13)
[2021-02-10 14:07] LABS: Partial Thromboplastin Time 27.1 Sec. (24.2-36.6)
[2021-02-10 14:21] LABS: Alanine Aminotransferase 10 units/L (7-56); Albumin 4.3 g/dL (3.9-5); Blood Urea Nitrogen 71 mg/dL (9-20); Calcium 7.8 mg/dL (8.4-10.2); Hemolysis Index 2
--- NOTE | 2021-02-10 14:24 | XRay Report ---
XR chest 1V ap INDICATION / CLINICAL INFORMATION: hypotension. COMPARISON: 02/06/2021 FINDINGS: SUPPORT DEVICES: Right IJ central venous catheter stable. HEART /PULMONARY VASCULATURE: No significant abnormality. LUNGS / PLEURA: No significant pulmonary or pleural abnormality. No pneumothorax. ADDITIONAL FINDINGS: No significant additional findings. IMPRESSION: 1. No acute findings. Signer Name: Chano Riggins MD Signed: 02/10/2021 2:20 PM Workstation Name: [id number]
[2021-02-10 14:36] LABS: BUN/Creatinine Ratio 5; Bilirubin,Direct < 0.2 mg/dL (0-0.2)
[2021-02-10] MEDS ORDERED: ASPIRIN 325 MG TAB PO ONE (15:40)
--- NOTE | 2021-02-10 16:18 | History and Physical Report ---
History of Present Illness Date of examination: 02/10/21 Date of admission: 02/10/2021 Chief complaint: Syncope, hypotension History of present illness: Patient 60-year-old male with a history of end-stage renal disease and hypertension recently admitted for gastritis after missing hemodialysis. Patient was brought in recently discharge on 02/07/2001 after episode of gastritis resolved. Today patient awakened and had breakfast. Upon finishing breakfast patient still he felt dizzy and had to lay back in bed and then had an episode of syncope. Patient then proceeded to call 911. In the field patient was found to be hypotensive with systolic blood pressures in the 90s. In the ED patient quickly responded with short run of IV fluids. Current blood pressure 122/75. Important to note that prior to discharge on Tuesday after dialysis patient was hypotensive. Patient received midodrine at that time and blood pressure went up to 119 and patient was discharged home. Also important to note during this history patient has continued to give himself his blood pressure medications despite systolic blood pressures running less than 110. At present patient is at baseline. Feels okay no nausea vomiting no dizziness no chest pain no shortness of breath no dyspnea on exertion. Patient recently ruled out for COVID-19 pneumonia. Has not had any sick contacts any sick contacts at all in the last 3 days from discharge. Patient's gastritis is also resolved with pantoprazole. Past History Past Medical History: arrhythmia, anemia, dialysis, ESRD, GERD, hypertension, renal failure. denies: acute NH, atrial fib, arthritis, CAD, cancer, COPD, diabetes, DVT, heart failure, hepatitis, HIV/AIDS, hyperthyroidism, hyperli pidemia, hypothyroidism, liver disease, migraines, PVD, pulmonary embolism, seizures, stroke, sarcoidosis Past Surgical History: Other (Only Vas-Cath and hemorrhoidectomy) Social history: no significant social history, other (No tobacco no EtOH no dr boyd.) Family history: no significant family history Medications and Allergies Allergies Allergy/AdvReac Type Severity Reaction Status Date / Time No Known Allergies Allergy Unverified 05/09/19 11:44 Home Medications Medication Instructions Recorded Confirmed Last Taken Type Losartan [Cozaar] 50 mg PO QDAY #30 tablet 12/16/20 02/06/21 02/04/21 09:00 Rx Lasix TAB 40 mg PO DAILY 02/05/21 02/05/21 02/04/21 History Tresiba 50 units SC DAILY 02/05/21 02/05/21 02/04/21 History Aspirin EC [Halfprin EC] 81 mg PO QDAY tablet 02/07/21 Unknown Rx Benzonatate [Tessalon Perles] 100 mg PO Q8HR capsule 02/07/21 Unknown Rx Calcium Acetate [Phoslo] 1,334 mg PO TIDWM capsule 02/07/21 Unknown Rx Docusate Sodium [Colace CAP] 100 mg PO BID PRN capsule 02/07/21 Unknown Rx Insulin Glargine [Lantus VIAL] 50 units SUB-Q DAILY units 02/07/21 Unknown Rx Iron,Carb/Vit C/Vit B12/Folic [Fe 1 each PO 1XW #20 tablet 02/07/21 Unknown Rx C Plus Tablet] Ondansetron [Zofran ODT TAB] 4 mg PO Q6HR PRN #14 tab.rapdis 02/07/21 Unknown Rx Pantoprazole [Protonix TAB] 40 mg PO QDAC #30 tablet 02/07/21 Unknown Rx Zolpidem [Ambien] 5 mg PO QHS PRN tablet 02/07/21 Unknown Rx Review of Systems Constitutional: no weight loss, no weight gain, no chills, no sweats, no night sweats, no anorexia, no weakness, no malaise, no lethargy, no poor appetite, no chronic pain Ears, nose, mouth and throat: no ear discharge, no nasal congestion, no nasal discharge, no dysphagia, no headache, no vertigo, no pain front of neck Cardiovascular: syncope, lightheadedness, other (Low blood pressure), no chest pain, no orthopnea, no palpitations, no rapid/irregular heart beat, no edema, no shortness of breath, no dyspnea on exertion, no paroxysmal nocturnal dyspnea, no claudication, no phlebitis, no high blood pressure Respiratory: no cough, no cough with sputum, no excessive sputum, no hemoptysis, no shortness of breath, no dyspnea on exertion, no congestion, no pleurisy, no pain on inspiration, no respiratory infections, no home oxygen Gastrointestinal: nausea, vomiting, loss of appetite, heartburn, other (Patient did have nausea vomiting secondary to gastritis now has resolved able to keep food down.), no constipation, no change in bowel habits, no hematemesis, no early satiety Rectal: no hemorrhoids Musculoskeletal: no neck stiffness, no shooting arm pain, no hot joints, no mu scle cramps, no fractures, no prior amputations Integumentary: no deferred, no sores, no lesions, no depigmentation Neurological: syncope, no head injury, no transient paralysis, no paralysis, no weakness, no parathesias, no numbness, no tingling, no seizures, no tremors, no ataxia, no lack of coordination, no vertigo, no headaches, no migraines, no tic, no convulsions, no aphasia, no change in speech, no change in mentation, no confusion, no memory loss, no changes in smell/taste, no balance difficulties, no gait dysfunction, no double vision, no loss of vision Endocrine: no polydipsia, no nocturia, no deepening of the voice, no recent glucocorticoid use Hematologic/Lymphatic: no easy bruising, no lymphadenopathy, no lymphedema Allergic/Immunologic: no urticaria, no seasonal allergies Exam - Constitutional Vitals: Temp Pulse Resp BP Pulse Ox 98.3 F 85 13 91/53 97 02/10/21 12:26 02/10/21 12:15 02/10/21 12:15 02/10/21 12:15 02/10/21 12:15 General appearance: Present: no acute distress, well-nourished - EENT Eyes: Present: PERRL ENT: hearing intact, clear oral mucosa - Neck Neck: Present: supple, normal ROM - Respiratory Respiratory effort: normal Respiratory: bilateral: CTA - Cardiovascular Heart Sounds: Present: S1 & S2. Absent: rub, click - Extremities Extremities: pulses symmetrical, No edema Peripheral Pulses: within normal limits - Abdominal General gastrointestinal: Present: soft, non-tender, non-distended, normal bowel sounds Male genitourinary: Present: normal - Integumentary Integumentary: Present: clear, warm, dry - Musculoskeletal Musculoskeletal: gait normal, strength equal bilaterally - Psychiatric Psychiatric: appropriate mood/affect, intact judgment & insight - Neurologic Neurologic: CNII-XII intact, moves all extremities HEART Score - HEART Score Troponin: Troponin T 0.094 ng/mL (0.00-0.029) H 02/10/21 13:28 Results - Labs CBC & Chem 7: 02/10/21 13:28 02/10/21 13:28 Labs: Laboratory Last Values WBC 6.0 K/mm3 (4.5-11.0) 02/10/21 13:28 RBC 4.18 M/mm3 (3.65-5.03) 02/10/21 13:28 Hgb 11.9 gm/dl (11.8-15.2) 02/10/21 13:28 Hct 36.3 % (35.5-45.6) 02/10/21 13:28 MCV 87 fl (84-94) 02/10/21 13:28 MCH 29 pg (28-32) 02/10/21 13:28 MCHC 33 % (32-34) 02/10/21 13:28 RDW 13.8 % (13.2-15.2) 02/10/21 13:28 Plt Count 140 K/mm3 (140-440) 02/10/21 13:28 Lymph % (Auto) 15.6 % (13.4-35.0) 02/10/21 13:28 [place] % (Auto) 8.8 % (0.0-7.3) H 02/10/21 13:28 Eos % (Auto) 0.9 % (0.0-4.3) 02/10/21 13:28 Baso % (Auto) 0.3 % (0.0-1.8) 02/10/21 13:28 Lymph # (Auto) 0.9 K/mm3 (1.2-5.4) L 02/10/21 13:28 [place] # (Auto) 0.5 K/mm3 (0.0-0.8) 02/10/21 13:28 Eos # (Auto) 0.1 K/mm3 (0.0-0.4) 02/10/21 13:28 Baso # (Auto) 0.0 K/mm3 (0.0-0.1) 02/10/21 13:28 Seg Neutrophils % 74.4 % (40.0-70.0) H 02/10/21 13:28 Seg Neutrophils # 4.5 K/mm3 (1.8-7.7) 02/10/21 13:28 PT 14.1 Sec. (12.2-14.9) 02/10/21 13:28 INR 1.04 (0.87-1.13) 02/10/21 13:28 APTT 27.1 Sec. (24.2-36.6) 02/10/21 13:28 Sodium 136 mmol/L (137-145) L 02/10/21 13:28 Potassium 4.5 mmol/L (3.6-5.0) 02/10/21 13:28 Chloride 89.5 mmol/L (98-107) L 02/10/21 13:28 Carbon Dioxide 26 mmol/L (22-30) 02/10/21 13:28 Anion Gap 25 mmol/L 02/10/21 13:28 BUN 71 mg/dL (9-20) H 02/10/21 13:28 Creatinine 15.3 mg/dL (0.8-1.3) H 02/10/21 13:28 Estimated GFR 4 ml/min 02/10/21 13:28 BUN/Creatinine Ratio 5 % 02/10/21 13:28 Glucose 138 mg/dL (75-100) H 02/10/21 13:28 Calcium 7.8 mg/dL (8.4-10.2) L 02/10/21 13:28 Phosphorus 5.80 mg/dL (2.5-4.5) H 02/10/21 13:28 Total Bilirubin 0.30 mg/dL (0.1-1.2) 02/10/21 13:28 Direct Bilirubin < 0.2 mg/dL (0-0.2) 02/10/21 13:28 Indirect Bilirubin 0.1 mg/dL 02/10/21 13:28 AST 9 units/L (5-40) 02/10/21 13:28 ALT 10 units/L (7-56) 02/10/21 13:28 Alkaline Phosphatase 112 units/L (35-129) 02/10/21 13:28 Troponin T 0.094 ng/mL (0.00-0.029) H 02/10/21 13:28 NT-Pro-B Natriuret Pep 2481 pg/mL (0-900) H 02/10/21 13:28 Total Protein 6.9 g/dL (6.3-8.2) 02/10/21 13:28 Albumin 4.3 g/dL (3.9-5) 02/10/21 13:28 Albumin/Globulin Ratio 1.7 % 02/10/21 13:28 - Imaging and Cardiology EKG: report reviewed, image reviewed Chest x-ray: report reviewed, image reviewed Assessment and Plan Advance Directives: Yes VTE prophylaxis?: Chemical Plan of care discussed with patient/family: Yes - Patient Problems (1) ESRD needing dialysis Current Visit: Yes Status: Acute Plan to address problem: Patient will require dialysis on this admission has consulted Dr. Blevins (2) Elevated troponin Current Visit: Yes Status: Acute Plan to address problem: Elevated troponin most likely secondary to renal insufficiency chronic kidney disease. Patient has not had extensive cardiac work-up. I think this can be done on outpatient basis. (3) Hypotensive episode Current Visit: Yes Status: Acute Plan to address problem: Hypotension most likely secondary to antihypertensive medications. Patient has been given himself the full dose of medication despite hemodialysis days. Most likely etiology. Will hold antihypertensives for now. Resume on nondialysis days. We will hold antihypertensives for systolic blood pressure less than 145. (4) Syncope Current Visit: Yes Status: Acute Qualifiers: Syncope type: unspecified Qualified Code(s): R55 - Syncope and collapse Plan to address problem: Difficult to tell whether this was true syncope. Patient was able to get himself back in bed. And states does not remember what happened at that time. Will be difficult for true syncope to lie himself back in bed. Most likely hypertensive felt dizzy. Patient was hypertensive upon being in the ED. Responded to short dose of IV volume hydration. (5) Acute gastritis Current Visit: No Status: Acute Plan to address problem: Acute gastritis was secondary to uremia. This is resolved. Continue pantoprazole as were doing. (6) Anemia Current Visit: No Status: Acute Qualifiers: Anemia type: unspecified type Qualified Code(s): D64.9 - Anemia, unspecified Plan to address problem: Anemia of chronic disease no treatment required. (7) Diabetes Current Visit: No Status: Acute Plan to address problem: Patient has not been eating as well since the gastritis in his last hospitalization. Will decrease his insulin from 50-30 and titrate with sliding scale insulin. We can further titrate accordingly as Accu-Cheks calm. Will obtain Accu-Cheks before every meal and nightly placed on diabetic diet.
[2021-02-10] MEDS ORDERED: MORPHINE 2 MG/1 ML INJ IV PRN (16:35)
[2021-02-10] MEDS ORDERED: ONDANSETRON 4 MG/2 ML INJ IV PRN (16:35)
[2021-02-10] MEDS ORDERED: ACETAMINOPHEN 325 MG TAB PO PRN (16:35)
[2021-02-10] MEDS ORDERED: DEXTROSE 50% IN WATER (25GM) 50 ML SYRINGE IV PRN (16:35)
[2021-02-10] MEDS ORDERED: ZOLPIDEM 5 MG TAB PO PRN ×2 (16:35→16:36)
[2021-02-10] MEDS ORDERED: DOCUSATE SODIUM 100 MG CAP PO PRN (16:36)
[2021-02-10] MEDS ORDERED: IRON CARB PO SCH (16:45)
[2021-02-10] MEDS ORDERED: VIT C PO SCH (16:45)
[2021-02-10] MEDS ORDERED: FOLIC PO SCH (16:45)
[2021-02-10] MEDS ORDERED: VIT B12 PO SCH (16:45)
[2021-02-10] MEDS ORDERED: FOLIC ACID/VIT B COMP W-C 1 MG (RENAL CAPS) PO SCH (17:50)
[2021-02-10] MEDS: CALCIUM ACETATE 667 MG CAP PO SCH (18:50)
[2021-02-10] MEDS: PANTOPRAZOLE 40 MG TAB PO SCH (18:50)
[2021-02-10 18:59] LABS: Creatine Kinase MB 3.1 ng/mL (0.0-4.0)
[2021-02-10] MEDS: INSULIN GLARGINE 100 UNITS/ML SUB-Q SCH (20:22)
[2021-02-11 06:07] LABS: Calcium 7.7 mg/dL (8.4-10.2)
--- NOTE | 2021-02-11 08:07 | Consultation ---
History of Present Illness Consult date: 02/11/21 Requesting physician: ZION LEONARD Consult reason: arrhythmia, elevated troponin History of present illness: This patient is a 60-year-old male with a significant history of ESRD on HD. He is not regularly followed by our practice but has been seen on 1 prior occasion inpatient. Patient presents to [facility] ER after report of presyncopal episode. Patient was recently discharged from [facility] and was noted to have borderline low hypotension at that time. Patient reportedly missed his last scheduled dialysis and has continued to take regularly his blood pressure medications. Cardiology is consulted for possible syncopal episode, junctional arrhythmia and elevated troponins. At time of interview patient remains borderline hypotensive but is currently asymptomatic with no cardiac complaints. Past History Past Medical History: arrhythmia, anemia, dialysis, ESRD, GERD, hypertension, renal failure, other (See HPI). denies: acute [place], atrial fib, arthritis, CAD, cancer, COPD, diabetes, DVT, heart failure, hepatitis, HIV/AIDS, hyperthyroidism, hyperlipidemia, hypothyroidism, liver disease, migraines, PVD, pulmonary embolism, seizures, stroke, sarcoidosis Past Surgical History: Other (Only Vas-Cath and hemorrhoidectomy) Social history: no significant social history, other (No tobacco no EtOH no drugs.) Family history: no significant family history Medications and Allergies Allergies Allergy/AdvReac Type Severity Reaction Status Date / Time No Known Allergies Allergy Unverified 05/09/19 11:44 Home Medications Medication Instructions Recorded Confirmed Last Taken Type Losartan [Cozaar] 50 mg PO QDAY #30 tablet 12/16/20 02/10/21 02/04/21 09:00 Rx Lasix TAB 40 mg PO DAILY 02/05/21 02/10/21 02/04/21 History Tresiba 50 units SC DAILY 02/05/21 02/10/21 02/04/21 History Aspirin EC [Halfprin EC] 81 mg PO QDAY tablet 02/07/21 02/10/21 Unknown Rx Benzonatate [Tessalon Perles] 100 mg PO Q8HR capsule 02/07/21 02/10/21 Unknown Rx Calcium Acetate [Phoslo] 1,334 mg PO TIDWM capsule 02/07/21 02/10/21 Unknown Rx Docusate Sodium [Colace CAP] 100 mg PO BID PRN capsule 02/07/21 02/10/21 Unknown Rx Insulin Glargine [Lantus VIAL] 50 units SUB-Q DAILY units 02/07/21 02/10/21 Unknown Rx Iron,Carb/Vit C/Vit B12/Folic [Fe 1 each PO 1XW #20 tablet 02/07/21 02/10/21 Unknown Rx C Plus Tablet] Ondansetron [Zofran ODT TAB] 4 mg PO Q6HR PRN #14 tab.rapdis 02/07/21 02/10/21 Unknown Rx Pantoprazole [Protonix TAB] 40 mg PO QDAC #30 tablet 02/07/21 02/10/21 Unknown Rx Zolpidem [Ambien] 5 mg PO QHS PRN tablet 02/07/21 02/10/21 Unknown Rx Active Meds: Active Medications Acetaminophen (Acetaminophen 325 Mg Tab) 650 mg PO Q4H PRN PRN Reason: Pain MILD(1-3)/Fever >100.5/SCHNEIDER Aspirin (Aspirin Ec 81 Mg Tab) 81 mg PO QDAY [facility] Calcium Acetate (Calcium Acetate 667 Mg Cap) 1,334 mg PO TIDWM [facility] Last Admin: 02/10/21 18:50 Dose: 1,334 mg Documented by: Dextrose (Dextrose 50% In Water (25gm) 50 Ml Syringe) 50 ml IV Q30MIN PRN; Protocol PRN Reason: Hypoglycemia Docusate Sodium (Docusate Sodium 100 Mg Cap) 100 mg PO BID PRN PRN Reason: Constipation Insulin Glargine (Insulin Glargine 100 Units/Ml) 30 units SUB-Q DAILY [facility] Last Admin: 02/10/21 20:22 Dose: 30 units Documented by: Morphine Sulfate (Morphine 2 Mg/1 Ml Inj) 2 mg IV Q4H PRN PRN Reason: Pain, Moderate (4-6) Multivit/Ca Carb/B Cmplx/FA/Prenat (Folic Acid/Vit B Comp W-C 1 Mg (Renal Caps)) 1 cap PO [facility] Last Admin: 02/10/21 18:10 Dose: 1 cap Documented by: Ondansetron HCl (Ondansetron 4 Mg/2 Ml Inj) 4 mg IV Q8H PRN PRN Reason: Nausea And Vomiting Oxycodone/Acetaminophen (Oxycodone /Acetaminophen 5-325mg Tab) 1 tab PO Q6H PRN PRN Reason: Pain, Moderate (4-6) Pantoprazole Sodium (Pantoprazole 40 Mg Tab) 40 mg PO QDAC [facility] Last Admin: 02/10/21 18:50 Dose: 40 mg Documented by: Sodium Chloride (Sodium Chloride 0.9% 10 Ml Flush Syringe) 10 ml IV BID [facility] Last Admin: 02/10/21 21:58 Dose: 10 ml Documented by: Sodium Chloride (Sodium Chloride 0.9% 10 Ml Flush Syringe) 10 ml IV PRN PRN PRN Reason: LINE FLUSH Zolpidem Tartrate (Zolpidem 5 Mg Tab) 5 mg PO QHS PRN PRN Reason: Insomnia Physical Examination Last Vital Signs Temp 98.3 F 02/11/21 03:21 Pulse 94 H 02/11/21 03:21 Resp 17 02/11/21 03:21 BP 97/60 02/11/21 03:21 Pulse Ox 97 02/11/21 03:21 General appearance: no acute distress HEENT: Positive: PERRL, Normocephaly, Mucus Membranes Moist Neck: Positive: neck supple, trachea midline Cardiac: Positive: Reg Rate and Rhythm, S1/S2 Lungs: Positive: Normal Exam, Normal Breath Sounds Neuro: Positive: Grossly Intact Abdomen: Positive: Soft Musculoskeletal: No Pain Extremities: Present: upper extr. pulses, lower extr. pulses, edema Results 02/10/21 13:28 02/11/21 04:51 Cardiac Enzymes 02/10/21 02/10/21 Range/Units 13:28 18:13 AST 9 (5-40) units/L CK-MB (CK-2) 3.1 (0.0-4.0) ng/mL Coagulation 02/10/21 Range/Units 13:28 PT 14.1 (12.2-14.9) Sec. INR 1.04 (0.87-1.13) APTT 27.1 (24.2-36.6) Sec. CBC 02/10/21 Range/Units 13:28 WBC 6.0 (4.5-11.0) K/mm3 RBC 4.18 (3.65-5.03) M/mm3 Hgb 11.9 (11.8-15.2) gm/dl Hct 36.3 (35.5-45.6) % Plt Count 140 (140-440) K/mm3 Lymph # (Auto) 0.9 L (1.2-5.4) K/mm3 [place] # (Auto) 0.5 (0.0-0.8) K/mm3 Eos # (Auto) 0.1 (0.0-0.4) K/mm3 Baso # (Auto) 0.0 (0.0-0.1) K/mm3 Comprehensive Metabolic Panel 02/10/21 02/11/21 Range/Units 13:28 04:51 Sodium 136 L 137 (137-145) mmol/L Potassium 4.5 4.3 (3.6-5.0) mmol/L Chloride 89.5 L 90.7 L (98-107) mmol/L Carbon Dioxide 26 25 (22-30) mmol/L BUN 71 H 83 H (9-20) mg/dL Creatinine 15.3 H 16.3 H (0.8-1.3) mg/dL Glucose 138 H 104 H (75-100) mg/dL Calcium 7.8 L 7.7 L (8.4-10.2) mg/dL Direct Bilirubin < 0.2 (0-0.2) mg/dL Indirect Bilirubin 0.1 mg/dL AST 9 (5-40) units/L ALT 10 (7-56) units/L Alkaline Phosphatase 112 (35-129) units/L Total Protein 6.9 (6.3-8.2) g/dL Albumin 4.3 (3.9-5) g/dL - Imaging and Cardiology Echo: pending EKG: report reviewed, image reviewed EKG interpretations - Telemetry EKG Rhythm: 1st Degree HB - EKG Supraventricular dysrhythmia: junctional rhythm Assessment and Plan First-degree AV block with occasional dropped beat 2-1 conduction * Telemetry reviewed: Sinus rhythm 82 with significant first-degree block, rare drop beat reflects second-degree AV block Mobitz two with 2-1 conduction. This is consistent with previous telemetry data reviewed from 2019 hospitalization. * Avoid AV myke blocking agents Syncope * Echocardiogram is pending * TSH pending * Orthostatic BP checks pending * Continue to monitor on telemetry NSTEMI suspect type II * Troponins are elevated x3, subacute nonspecific and unchanging. We will continue to trend Sandra * Lexiscan stress test plan for a.m. N.p.o. after midnight End-stage renal disease requiring hemodialysis in setting of insulin-dependent diabetes * Patient reports missing last scheduled dialysis session. Nephrology is following * No LASHAY/ARB in setting of JOSSY. Avoid nephrotoxic agents DVT prophylaxis * Heparin SQ Lexiscan stress test in a.m. N.p.o. after midnight. We will follow This patient was seen in conjunction with Dr Jd Marin who agrees with this assessment and plan of care. - Patient Problems (1) Syncope Current Visit: Yes Status: Acute Qualifiers: Syncope type: unspecified Qualified Code(s): R55 - Syncope and collapse (2) AV block, 1st degree Current Visit: Yes Status: Chronic (3) Elevated troponin Current Visit: Yes Status: Chronic (4) ESRD needing dialysis Current Visit: Yes Status: Chronic (5) HTN (hypertension) Current Visit: Yes Status: Chronic Qualifiers: Hypertension type: essential hypertension Qualified Code(s): I10 - Essential (primary) hypertension (6) IDDM (insulin dependent diabetes mellitus) Current Visit: Yes Status: Chronic
--- NOTE | 2021-02-11 08:08 | Progress Note ---
Assessment and Plan Assessment and plan: Hypotension/presyncope/autonomic dysfunction ESRD needing dialysis Elevated troponin Gastritis Anemia of chronic disease Diabetes mellitus type 2 02/11/2021. Await cardiology and nephrology consultations. Follow-up echocardiogram to assess left ventricular function. Check orthostatic vital signs. History Interval history: Patient 60-year-old male with a history of end-stage renal disease and hypertension recently admitted for gastritis after missing hemodialysis. Patient was brought in recently discharge on 02/07/2001 after episode of gastritis resolved. On the day of admission, patient awakened and had breakfast. Upon finishing breakfast patient still he felt dizzy and had to lay back in bed and then had an episode of syncope. Patient then proceeded to call 911. In the field patient was found to be hypotensive with systolic blood pressures in the 90s. In the ED patient quickly responded with short run of IV fluids. Current blood pressure 122/75. Important to note that prior to discharge on Tuesday after dialysis patient was hypotensive. Patient received midodrine at that time and blood pressure went up to 119 and patient was discharged home. Also important to note during this history patient has continued to give himself his blood pressure medications despite systolic blood pressures running less than 110. Patient remains hypotensive this morning Hospitalist Physical - Constitutional Vitals: Temp Pulse Resp BP Pulse Ox 98.3 F 94 H 17 97/60 97 02/11/21 03:21 02/11/21 03:21 02/11/21 03:21 02/11/21 03:21 02/11/21 03:21 General appearance: Present: no acute distress, well-nourished - EENT Eyes: Present: PERRL, EOM intact ENT: hearing intact, clear oral mucosa, dentition normal - Neck Neck: Present: supple, normal ROM - Respiratory Respiratory effort: normal Respiratory: bilateral: CTA - Cardiovascular Rhythm: regular Heart Sounds: Present: S1 & S2. Absent: gallop, rub - Extremities Extremities: no ischemia, No edema, Full ROM - Abdominal General gastrointestinal: soft, non-tender, non-distended, normal bowel sounds - Integumentary Integumentary: Present: clear, warm, dry - Neurologic Neurologic: CNII-XII intact, moves all extremities HEART Score - HEART Score Troponin: Troponin T 0.093 ng/mL (0.00-0.029) H 02/10/21 18:13 Results - Labs CBC & Chem 7: 02/10/21 13:28 02/11/21 04:51 Labs: Laboratory Last Values WBC 6.0 K/mm3 (4.5-11.0) 02/10/21 13:28 RBC 4.18 M/mm3 (3.65-5.03) 02/10/21 13:28 Hgb 11.9 gm/dl (11.8-15.2) 02/10/21 13:28 Hct 36.3 % (35.5-45.6) 02/10/21 13:28 MCV 87 fl (84-94) 02/10/21 13:28 MCH 29 pg (28-32) 02/10/21 13:28 MCHC 33 % (32-34) 02/10/21 13:28 RDW 13.8 % (13.2-15.2) 02/10/21 13:28 Plt Count 140 K/mm3 (140-440) 02/10/21 13:28 Lymph % (Auto) 15.6 % (13.4-35.0) 02/10/21 13:28 [place] % (Auto) 8.8 % (0.0-7.3) H 02/10/21 13:28 Eos % (Auto) 0.9 % (0.0-4.3) 02/10/21 13:28 Baso % (Auto) 0.3 % (0.0-1.8) 02/10/21 13:28 Lymph # (Auto) 0.9 K/mm3 (1.2-5.4) L 02/10/21 13:28 [place] # (Auto) 0.5 K/mm3 (0.0-0.8) 02/10/21 13:28 Eos # (Auto) 0.1 K/mm3 (0.0-0.4) 02/10/21 13:28 Baso # (Auto) 0.0 K/mm3 (0.0-0.1) 02/10/21 13:28 Seg Neutrophils % 74.4 % (40.0-70.0) H 02/10/21 13:28 Seg Neutrophils # 4.5 K/mm3 (1.8-7.7) 02/10/21 13:28 PT 14.1 Sec. (12.2-14.9) 02/10/21 13:28 INR 1.04 (0.87-1.13) 02/10/21 13:28 APTT 27.1 Sec. (24.2-36.6) 02/10/21 13:28 Sodium 137 mmol/L (137-145) 02/11/21 04:51 Potassium 4.3 mmol/L (3.6-5.0) 02/11/21 04:51 Chloride 90.7 mmol/L (98-107) L 02/11/21 04:51 Carbon Dioxide 25 mmol/L (22-30) 02/11/21 04:51 Anion Gap 26 mmol/L 02/11/21 04:51 BUN 83 mg/dL (9-20) H 02/11/21 04:51 Creatinine 16.3 mg/dL (0.8-1.3) H 02/11/21 04:51 Estimated GFR 4 ml/min 02/11/21 04:51 BUN/Creatinine Ratio 5 % 02/11/21 04:51 Glucose 104 mg/dL (75-100) H 02/11/21 04:51 POC Glucose 211 mg/dL (70-105) H 02/10/21 20:13 Calcium 7.7 mg/dL (8.4-10.2) L 02/11/21 04:51 Phosphorus 5.80 mg/dL (2.5-4.5) H 02/10/21 13:28 Total Bilirubin 0.30 mg/dL (0.1-1.2) 02/10/21 13:28 Direct Bilirubin < 0.2 mg/dL (0-0.2) 02/10/21 13:28 Indirect Bilirubin 0.1 mg/dL 02/10/21 13:28 AST 9 units/L (5-40) 02/10/21 13:28 ALT 10 units/L (7-56) 02/10/21 13:28 Alkaline Phosphatase 112 units/L (35-129) 02/10/21 13:28 Total Creatine Kinase 202 units/L (55-170) H 02/10/21 18:13 CK-MB (CK-2) 3.1 ng/mL (0.0-4.0) 02/10/21 18:13 CK-MB (CK-2) Rel Index 1.5 (0-4) 02/10/21 18:13 Troponin T 0.093 ng/mL (0.00-0.029) H 02/10/21 18:13 NT-Pro-B Natriuret Pep 2481 pg/mL (0-900) H 02/10/21 13:28 Total Protein 6.9 g/dL (6.3-8.2) 02/10/21 13:28 Albumin 4.3 g/dL (3.9-5) 02/10/21 13:28 Albumin/Globulin Ratio 1.7 % 02/10/21 13:28 Active Medications - Current Medications Current Medications: Generic Name Dose Route Start Last Admin Trade Name Freq PRN Reason Stop Dose Admin Acetaminophen 650 mg 02/10/21 16:35 Acetaminophen 325 Mg Tab PO Q4H PRN Pain MILD(1-3)/Fever >100.5/SCHNEIDER Aspirin 81 mg 02/11/21 10:00 Aspirin Ec 81 Mg Tab PO QDAY SARAH Calcium Acetate 1,334 mg 02/10/21 17:30 02/10/21 18:50 Calcium Acetate 667 Mg Cap PO 1,334 mg TIDWM SARAH Administration Dextrose 50 ml 02/10/21 16:35 Dextrose 50% In Water (25gm) 50 Ml Syringe IV Q30MIN PRN Hypoglycemia Protocol Docusate Sodium 100 mg 02/10/21 16:36 Docusate Sodium 100 Mg Cap PO BID PRN Constipation Insulin Glargine 30 units 02/10/21 18:00 02/10/21 20:22 Insulin Glargine 100 Units/Ml SUB-Q 30 units DAILY SARAH Administration Morphine Sulfate 2 mg 02/10/21 16:35 Morphine 2 Mg/1 Ml Inj IV Q4H PRN Pain, Moderate (4-6) Multivit/Ca Carb/B Cmplx/FA/Prenat 1 cap 02/10/21 17:50 02/10/21 18:10 Folic Acid/Vit B Comp W-C 1 Mg (Renal Caps) PO 1 cap Tu SARAH Administration Ondansetron HCl 4 mg 02/10/21 16:35 Ondansetron 4 Mg/2 Ml Inj IV Q8H PRN Nausea And Vomiting Oxycodone/Acetaminophen 1 tab 02/10/21 16:35 Oxycodone /Acetaminophen 5-325mg Tab PO Q6H PRN Pain, Moderate (4-6) Pantoprazole Sodium 40 mg 02/10/21 18:00 02/10/21 18:50 Pantoprazole 40 Mg Tab PO 40 mg QDAC SARAH Administration Sodium Chloride 10 ml 02/10/21 22:00 02/10/21 21:58 Sodium Chloride 0.9% 10 Ml Flush Syringe IV 10 ml BID SARAH Administration Sodium Chloride 10 ml 02/10/21 16:35 Sodium Chloride 0.9% 10 Ml Flush Syringe IV PRN PRN LINE FLUSH Zolpidem Tartrate 5 mg 02/10/21 16:35 Zolpidem 5 Mg Tab PO QHS PRN Insomnia
--- NOTE | 2021-02-11 08:48 | Consultation ---
History of Present Illness - Reason for Consult Consult date: 02/10/21 end stage renal disease - History of Present Illness The patient is a 60 YO male with history significant for DM type 2, HTN, Obesity, Anemia, Diabetic nephropathy, Proteinuria and ESRD on hemodialysis (TTS) who presented to [facility] ED 02/10 with c/o dizziness. Pt had to lay back in bed and then when he tried to get up had an episode of ?syncope. His friend at home called 911. In the field patient was found to be hypotensive with systolic blood pressures in the 90s. In the ED patient quickly responded with IV fluids with improvement in BP to 120/70s. Also important to note patient has continued to take his blood pressure medications despite systolic blood pressures running less than 110. Patient denies any nausea, vomiting , cp, sob, abd pain, diarrhea, leg swelling, fevr, chills or dysuria. Labs and imaging results noted. Nephrology was consulted for treatment of ESRD. Past History Past Medical History: arrhythmia, anemia, dialysis, ESRD, GERD, hypertension, renal failure, other (See HPI). denies: acute [place], atrial fib, arthritis, CAD, cancer, COPD, diabetes, DVT, heart failure, hepatitis, HIV/AIDS, hyperthyroidism, hyperlipidemia, hypothyroidism, liver disease, migraines, PVD, pulmonary embolism, seizures, stroke, sarcoidosis Past Surgical History: Other (Only Vas-Cath and hemorrhoidectomy) Social history: no significant social history, other (No tobacco no EtOH no drugs.) Family history: no significant family history Medications and Allergies Allergies Allergy/AdvReac Type Severity Reaction Status Date / Time No Known Allergies Allergy Unverified 05/09/19 11:44 Home Medications Medication Instructions Recorded Confirmed Last Taken Type Losartan [Cozaar] 50 mg PO QDAY #30 tablet 12/16/20 02/10/21 02/04/21 09:00 Rx Lasix TAB 40 mg PO DAILY 02/05/21 02/10/21 02/04/21 History Tresiba 50 units SC DAILY 02/05/21 02/10/21 02/04/21 History Aspirin EC [Halfprin EC] 81 mg PO QDAY tablet 02/07/21 02/10/21 Unknown Rx Benzonatate [Tessalon Perles] 100 mg PO Q8HR capsule 02/07/21 02/10/21 Unknown Rx Calcium Acetate [Phoslo] 1,334 mg PO TIDWM capsule 02/07/21 02/10/21 Unknown Rx Docusate Sodium [Colace CAP] 100 mg PO BID PRN capsule 02/07/21 02/10/21 Unknown Rx Insulin Glargine [Lantus VIAL] 50 units SUB-Q DAILY units 02/07/21 02/10/21 Unknown Rx Iron,Carb/Vit C/Vit B12/Folic [Fe 1 each PO 1XW #20 tablet 02/07/21 02/10/21 Unknown Rx C Plus Tablet] Ondansetron [Zofran ODT TAB] 4 mg PO Q6HR PRN #14 tab.rapdis 02/07/21 02/10/21 Unknown Rx Pantoprazole [Protonix TAB] 40 mg PO QDAC #30 tablet 02/07/21 02/10/21 Unknown Rx Zolpidem [Ambien] 5 mg PO QHS PRN tablet 02/07/21 02/10/21 Unknown Rx Active Meds: Active Medications Acetaminophen (Acetaminophen 325 Mg Tab) 650 mg PO Q4H PRN PRN Reason: Pain MILD(1-3)/Fever >100.5/SCHNEIDER Aspirin (Aspirin Ec 81 Mg Tab) 81 mg PO QDAY [facility] Calcium Acetate (Calcium Acetate 667 Mg Cap) 1,334 mg PO TIDWM [facility] Last Admin: 02/10/21 18:50 Dose: 1,334 mg Documented by: Dextrose (Dextrose 50% In Water (25gm) 50 Ml Syringe) 50 ml IV Q30MIN PRN; Protocol PRN Reason: Hypoglycemia Docusate Sodium (Docusate Sodium 100 Mg Cap) 100 mg PO BID PRN PRN Reason: Constipation Heparin Sodium (Porcine) (Heparin 5,000 Unit/1 Ml Vial) 5,000 unit SUB-Q Q12HR [facility] Insulin Glargine (Insulin Glargine 100 Units/Ml) 30 units SUB-Q DAILY [facility] Last Admin: 02/10/21 20:22 Dose: 30 units Documented by: Morphine Sulfate (Morphine 2 Mg/1 Ml Inj) 2 mg IV Q4H PRN PRN Reason: Pain, Moderate (4-6) Multivit/Ca Carb/B Cmplx/FA/Prenat (Folic Acid/Vit B Comp W-C 1 Mg (Renal Caps)) 1 cap PO Tu [facility] Last Admin: 02/10/21 18:10 Dose: 1 cap Documented by: Ondansetron HCl (Ondansetron 4 Mg/2 Ml Inj) 4 mg IV Q8H PRN PRN Reason: Nausea And Vomiting Oxycodone/Acetaminophen (Oxycodone /Acetaminophen 5-325mg Tab) 1 tab PO Q6H PRN PRN Reason: Pain, Moderate (4-6) Pantoprazole Sodium (Pantoprazole 40 Mg Tab) 40 mg PO QDAC [facility] Last Admin: 02/10/21 18:50 Dose: 40 mg Documented by: Sodium Chloride (Sodium Chloride 0.9% 10 Ml Flush Syringe) 10 ml IV BID [facility] Last Admin: 02/10/21 21:58 Dose: 10 ml Documented by: Sodium Chloride (Sodium Chloride 0.9% 10 Ml Flush Syringe) 10 ml IV PRN PRN PRN Reason: LINE FLUSH Zolpidem Tartrate (Zolpidem 5 Mg Tab) 5 mg PO QHS PRN PRN Reason: Insomnia Review of Systems Constitutional: no weight loss, no weight gain, no fever, no chills, no weakness Cardiovascular: syncope, lightheadedness, high blood pressure, no chest pain, no orthopnea, no edema, no shortness of breath, no dyspnea on exertion, no leg edema Respiratory: no cough, no shortness of breath, no dyspnea on exertion Gastrointestinal: no abdominal pain, no nausea, no vomiting, no diarrhea, no melena Neurological: no transient paralysis, no weakness, no syncope, no convulsions, no aphasia, no change in speech, no change in mentation, no confusion Exam - Vital Signs Vital signs: Vital Signs Pulse Resp Pulse Ox 87 14 97 02/10/21 12:10 02/10/21 12:10 02/10/21 12:10 Results - Lab Results 02/10/21 13:28 02/11/21 04:51 Most recent lab results Calcium 7.7 mg/dL (8.4-10.2) L 02/11/21 04:51 Phosphorus 5.80 mg/dL (2.5-4.5) H 02/10/21 13:28 Assessment and Plan 1. ESRD: Patient is on maintenance hemodialysis three times a week, TTS schedule. Meds dosage based on GFR. Missed outpatient today. Plan for HD tomorrow. Hemodialysis: 2. FEN: Monitor lytes and volume status. 3. Syncope: Patient is not sure about passing out. Likely 2/2 hypotension / vasovagal. Monitor. 4. Elevated troponin: Cards consulted. 5. DM type 2. 6. Hypertension: Admitted with hypotension. Monitor BP. Hold BP meds for now. 7. Normochromic anemia, POA: 2/2 ESRD. Epogen was needed. Subjective: Patient was seen and examined at the bedside. Examination: General appearance: well-developed, well-nourished, appears stated age, no distress HEENT: ATNC, JONATHAN, hearing intact, vision intact Neck: neck supple, trachea midline Respiratory: Clear to Auscultation Heart: regular, S1S2, no murmur Gastrointestinal: soft, normoactive bowel sounds, not tender Integumentary: warm, dry, R leg rash Neurologic: no focal deficit, no asterixis, alert and oriented x3 Ext: no edema Psychiatric: cooperative Hemodialysis access: R IJ tunnel catheter
[2021-02-11] MEDS: CALCIUM ACETATE 667 MG CAP PO SCH ×3 (09:14→16:48)
[2021-02-11] MEDS: PANTOPRAZOLE 40 MG TAB PO SCH (09:15)
[2021-02-11] MEDS: ASPIRIN EC 81 MG TAB PO SCH (09:15)
[2021-02-11] MEDS: HEPARIN 5,000 UNIT/1 ML VIAL SUB-Q SCH ×2 (09:16→21:16)
[2021-02-11] MEDS ORDERED: SODIUM CHLORIDE 0.9% 100 ML IV PRN (10:00)
--- NOTE | 2021-02-11 10:49 | Progress Note ---
Assessment and Plan 1. ESRD: Patient is on maintenance hemodialysis three times a week, TTS schedule. Meds dosage based on GFR. Missed outpatient yesterday. HD today. Hemodialysis: 2. FEN: Monitor lytes and volume status. 3. Syncope: Patient is not sure about passing out. Likely 2/2 hypotension / vasovagal. Hold BP meds for now. Monitor. 4. Elevated troponin: Cards consulted. 5. DM type 2. 6. Hypertension: Admitted with hypotension. Monitor BP. Hold BP meds for now. 7. Normochromic anemia, POA: 2/2 ESRD. Epogen was needed. Subjective: Patient was seen and examined at the bedside. Doing better. Examination: General appearance: well-developed, well-nourished, appears stated age, no distress HEENT: ATNC, JONATHAN, hearing intact, vision intact Neck: neck supple, trachea midline Respiratory: Clear to Auscultation Heart: regular, S1S2, no murmur Gastrointestinal: soft, normoactive bowel sounds, not tender Integumentary: warm, dry Neurologic: no focal deficit, no asterixis, alert and oriented x3 Ext: no edema Psychiatric: cooperative Hemodialysis access: R IJ tunnel catheter Subjective Date of service: 02/11/21 Objective - Vital Signs Vital signs: Vital Signs - 12hr 02/10/21 02/11/21 02/11/21 23:09 03:21 07:39 Temperature 98.3 F 98.3 F 98.5 F Pulse Rate 89 94 H 86 Respiratory 17 17 18 Rate Blood Pressure 88/61 97/60 129/80 O2 Sat by Pulse 98 97 97 Oximetry - Lab 02/10/21 13:28 02/11/21 04:51 Most recent lab results Calcium 7.7 mg/dL (8.4-10.2) L 02/11/21 04:51 Phosphorus 5.80 mg/dL (2.5-4.5) H 02/10/21 13:28 Medications & Allergies - Medications Allergies/Adverse Reactions: Allergies No Known Allergies Allergy (Unverified 05/09/19 11:44) Home Medications: Home Medications Medication Instructions Recorded Confirmed Last Taken Type Losartan [Cozaar] 50 mg PO QDAY #30 tablet 12/16/20 02/10/21 02/04/21 09:00 Rx Lasix TAB 40 mg PO DAILY 02/05/21 02/10/21 02/04/21 History Tresiba 50 units SC DAILY 02/05/21 02/10/21 02/04/21 History Aspirin EC [Halfprin EC] 81 mg PO QDAY tablet 02/07/21 02/10/21 Unknown Rx Benzonatate [Tessalon Perles] 100 mg PO Q8HR capsule 02/07/21 02/10/21 Unknown Rx Calcium Acetate [Phoslo] 1,334 mg PO TIDWM capsule 02/07/21 02/10/21 Unknown Rx Docusate Sodium [Colace CAP] 100 mg PO BID PRN capsule 02/07/21 02/10/21 Unknown Rx Insulin Glargine [Lantus VIAL] 50 units SUB-Q DAILY units 02/07/21 02/10/21 Unknown Rx Iron,Carb/Vit C/Vit B12/Folic [Fe 1 each PO 1XW #20 tablet 02/07/21 02/10/21 Unknown Rx C Plus Tablet] Ondansetron [Zofran ODT TAB] 4 mg PO Q6HR PRN #14 tab.rapdis 02/07/21 02/10/21 Unknown Rx Pantoprazole [Protonix TAB] 40 mg PO QDAC #30 tablet 02/07/21 02/10/21 Unknown Rx Zolpidem [Ambien] 5 mg PO QHS PRN tablet 02/07/21 02/10/21 Unknown Rx Active Medications: Generic Name Dose Route Start Last Admin Trade Name Freq PRN Reason Stop Dose Admin Acetaminophen 650 mg 02/10/21 16:35 Acetaminophen 325 Mg Tab PO Q4H PRN Pain MILD(1-3)/Fever >100.5/SCHNEIDER Aspirin 81 mg 02/11/21 10:00 02/11/21 09:15 Aspirin Ec 81 Mg Tab PO 81 mg QDAY SARAH Administration Calcium Acetate 1,334 mg 02/10/21 17:30 02/11/21 09:14 Calcium Acetate 667 Mg Cap PO 1,334 mg TIDWM SARAH Administration Dextrose 50 ml 02/10/21 16:35 Dextrose 50% In Water (25gm) 50 Ml Syringe IV Q30MIN PRN Hypoglycemia Protocol Docusate Sodium 100 mg 02/10/21 16:36 Docusate Sodium 100 Mg Cap PO BID PRN Constipation Heparin Sodium (Porcine) 5,000 unit 02/11/21 10:00 02/11/21 09:16 Heparin 5,000 Unit/1 Ml Vial SUB-Q Not Given Q12HR SARAH Sodium Chloride 100 mls @ 999 mls/hr 02/11/21 10:00 Nacl 0.9% IV RIVER PRN Hypotension Insulin Glargine 30 units 02/10/21 18:00 02/10/21 20:22 Insulin Glargine 100 Units/Ml SUB-Q 30 units DAILY SARAH Administration Morphine Sulfate 2 mg 02/10/21 16:35 Morphine 2 Mg/1 Ml Inj IV Q4H PRN Pain, Moderate (4-6) Multivit/Ca Carb/B Cmplx/FA/Prenat 1 cap 02/10/21 17:50 02/10/21 18:10 Folic Acid/Vit B Comp W-C 1 Mg (Renal Caps) PO 1 cap Tu SARAH Administration Ondansetron HCl 4 mg 02/10/21 16:35 Ondansetron 4 Mg/2 Ml Inj IV Q8H PRN Nausea And Vomiting Oxycodone/Acetaminophen 1 tab 02/10/21 16:35 Oxycodone /Acetaminophen 5-325mg Tab PO Q6H PRN Pain, Moderate (4-6) Pantoprazole Sodium 40 mg 02/10/21 18:00 02/11/21 09:15 Pantoprazole 40 Mg Tab PO 40 mg QDAC SARAH Administration Sodium Chloride 10 ml 02/10/21 22:00 02/10/21 21:58 Sodium Chloride 0.9% 10 Ml Flush Syringe IV 10 ml BID SARAH Administration Sodium Chloride 10 ml 02/10/21 16:35 Sodium Chloride 0.9% 10 Ml Flush Syringe IV PRN PRN LINE FLUSH Zolpidem Tartrate 5 mg 02/10/21 16:35 Zolpidem 5 Mg Tab PO QHS PRN Insomnia
[2021-02-11 12:22] LABS: Hepatitis B Surface Antigen Non-Reactive (Negative); Hepatitis C Virus Antibody Non-Reactive (NonReactive)
[2021-02-11] MEDS: INSULIN GLARGINE 100 UNITS/ML SUB-Q SCH (12:29)
[2021-02-12 05:24] LABS: Calcium 7.9 mg/dL (8.4-10.2)
[2021-02-12 05:45] LABS: Chol/HDL Ratio 4.03 %
[2021-02-12] MEDS ORDERED: REGADENOSON 0.4 MG/5 ML INJ IV ONE (06:57)
[2021-02-12] MEDS ORDERED: HEPARIN 10,000 UNITS/10 ML VIAL IV PRN (08:00)
[2021-02-12] MEDS: CALCIUM ACETATE 667 MG CAP PO SCH ×3 (08:00→17:50)
[2021-02-12] MEDS: oxyCODONE /ACETAMINOPHEN 5-325MG TAB PO PRN ×2 (09:40→16:40)
[2021-02-12] MEDS: INSULIN GLARGINE 100 UNITS/ML SUB-Q SCH (10:00)
[2021-02-12] MEDS: HEPARIN 5,000 UNIT/1 ML VIAL SUB-Q SCH ×2 (10:00→22:00)
--- NOTE | 2021-02-12 10:13 | Progress Note ---
Assessment and Plan Assessment and plan: First-degree AV block Syncope. Etiology secondary to above NSTEMI suspect type II ESRD needing dialysis Elevated troponin Gastritis Anemia of chronic disease Diabetes mellitus type 2 02/11/2021. Await cardiology and nephrology consultations. Follow-up echocardiogram to assess left ventricular function. Check orthostatic vital signs. 02/12/2021. Echocardiogram revealed left ventricular size is normal with systolic function mildly decreased. Borderline concentric left ventricular hypertrophy. LVEF is 40 to 45%. Lexiscan results are pending. Cardiology following. TSH normal. History Interval history: Patient 60-year-old male with a history of end-stage renal disease and hypertension recently admitted for gastritis after missing hemodialysis. Patient was brought in recently discharge on 02/07/2001 after episode of gastritis resolved. On the day of admission, patient awakened and had breakfast. Upon finishing breakfast patient still he felt dizzy and had to lay back in bed and then had an episode of syncope. Patient then proceeded to call 911. In the field patient was found to be hypotensive with systolic blood pressures in the 90s. In the ED patient quickly responded with short run of IV fluids. Current blood pressure 122/75. Important to note that prior to discharge on Tuesday after dialysis patient was hypotensive. Patient received midodrine at that time and blood pressure went up to 119 and patient was discharged home. Also important to note during this history patient has continued to give himself his blood pressure medications despite systolic blood pressures running less than 110. Patient remains hypotensive this morning Hospitalist Physical - Constitutional Vitals: Temp Pulse Resp BP Pulse Ox 99.0 F 71 20 92/57 98 02/12/21 07:27 02/12/21 07:27 02/12/21 07:27 02/12/21 07:27 02/12/21 07:27 General appearance: Present: no acute distress - EENT Eyes: Present: PERRL, EOM intact ENT: hearing intact, clear oral mucosa, dentition normal - Neck Neck: Present: supple, normal ROM - Respiratory Respiratory effort: normal Respiratory: bilateral: CTA - Cardiovascular Rhythm: regular Heart Sounds: Present: S1 & S2. Absent: gallop, rub - Extremities Extremities: no ischemia, No edema, Full ROM - Abdominal General gastrointestinal: soft, non-tender, non-distended, normal bowel sounds - Integumentary Integumentary: Present: clear, warm, dry - Neurologic Neurologic: CNII-XII intact, moves all extremities HEART Score - HEART Score Troponin: Troponin T 0.071 ng/mL (0.00-0.029) H D 02/12/21 04:36 Results - Labs CBC & Chem 7: 02/10/21 13:28 02/12/21 04:36 Labs: Laboratory Last Values WBC 6.0 K/mm3 (4.5-11.0) 02/10/21 13:28 RBC 4.18 M/mm3 (3.65-5.03) 02/10/21 13:28 Hgb 11.9 gm/dl (11.8-15.2) 02/10/21 13:28 Hct 36.3 % (35.5-45.6) 02/10/21 13:28 MCV 87 fl (84-94) 02/10/21 13:28 MCH 29 pg (28-32) 02/10/21 13:28 MCHC 33 % (32-34) 02/10/21 13:28 RDW 13.8 % (13.2-15.2) 02/10/21 13:28 Plt Count 140 K/mm3 (140-440) 02/10/21 13:28 Lymph % (Auto) 15.6 % (13.4-35.0) 02/10/21 13:28 [place] % (Auto) 8.8 % (0.0-7.3) H 02/10/21 13:28 Eos % (Auto) 0.9 % (0.0-4.3) 02/10/21 13:28 Baso % (Auto) 0.3 % (0.0-1.8) 02/10/21 13:28 Lymph # (Auto) 0.9 K/mm3 (1.2-5.4) L 02/10/21 13:28 [place] # (Auto) 0.5 K/mm3 (0.0-0.8) 02/10/21 13:28 Eos # (Auto) 0.1 K/mm3 (0.0-0.4) 02/10/21 13:28 Baso # (Auto) 0.0 K/mm3 (0.0-0.1) 02/10/21 13:28 Seg Neutrophils % 74.4 % (40.0-70.0) H 02/10/21 13:28 Seg Neutrophils # 4.5 K/mm3 (1.8-7.7) 02/10/21 13:28 PT 14.1 Sec. (12.2-14.9) 02/10/21 13:28 INR 1.04 (0.87-1.13) 02/10/21 13:28 APTT 27.1 Sec. (24.2-36.6) 02/10/21 13:28 Sodium 138 mmol/L (137-145) 02/12/21 04:36 Potassium 4.1 mmol/L (3.6-5.0) 02/12/21 04:36 Chloride 97.7 mmol/L (98-107) L 02/12/21 04:36 Carbon Dioxide 24 mmol/L (22-30) 02/12/21 04:36 Anion Gap 20 mmol/L 02/12/21 04:36 BUN 45 mg/dL (9-20) H 02/12/21 04:36 Creatinine 11.4 mg/dL (0.8-1.3) H 02/12/21 04:36 Estimated GFR 6 ml/min 02/12/21 04:36 BUN/Creatinine Ratio 4 % 02/12/21 04:36 Glucose 193 mg/dL (75-100) H 02/12/21 04:36 POC Glucose 118 mg/dL (70-105) H 02/12/21 07:19 Calcium 7.9 mg/dL (8.4-10.2) L 02/12/21 04:36 Phosphorus 5.80 mg/dL (2.5-4.5) H 02/10/21 13:28 Total Bilirubin 0.30 mg/dL (0.1-1.2) 02/10/21 13:28 Direct Bilirubin < 0.2 mg/dL (0-0.2) 02/10/21 13:28 Indirect Bilirubin 0.1 mg/dL 02/10/21 13:28 AST 9 units/L (5-40) 02/10/21 13:28 ALT 10 units/L (7-56) 02/10/21 13:28 Alkaline Phosphatase 112 units/L (35-129) 02/10/21 13:28 Total Creatine Kinase 202 units/L (55-170) H 02/10/21 18:13 CK-MB (CK-2) 3.1 ng/mL (0.0-4.0) 02/10/21 18:13 CK-MB (CK-2) Rel Index 1.5 (0-4) 02/10/21 18:13 Troponin T 0.071 ng/mL (0.00-0.029) H D 02/12/21 04:36 NT-Pro-B Natriuret Pep 2481 pg/mL (0-900) H 02/10/21 13:28 Total Protein 6.9 g/dL (6.3-8.2) 02/10/21 13:28 Albumin 4.3 g/dL (3.9-5) 02/10/21 13:28 Albumin/Globulin Ratio 1.7 % 02/10/21 13:28 Triglycerides 188 mg/dL (2-149) H 02/12/21 04:36 Cholesterol 125 mg/dL (50-199) 02/12/21 04:36 LDL Cholesterol Direct 68 mg/dL (50-130) 02/12/21 04:36 HDL Cholesterol 31 mg/dL (40-59) L 02/12/21 04:36 Cholesterol/HDL Ratio 4.03 % 02/12/21 04:36 TSH 1.240 mlU/mL (0.270-4.200) 02/11/21 08:38 Hepatitis A IgM Ab Non-reactive (NonReactive) 02/11/21 10:46 Hep Bs Antigen Non-reactive (Negative) 02/11/21 10:46 Hep B Core IgM Ab Non-reactive (NonReactive) 02/11/21 10:46 Hepatitis C Antibody Non-reactive (NonReactive) 02/11/21 10:46 Active Medications - Current Medications Current Medications: Generic Name Dose Route Start Last Admin Trade Name Freq PRN Reason Stop Dose Admin Acetaminophen 650 mg 02/10/21 16:35 Acetaminophen 325 Mg Tab PO Q4H PRN Pain MILD(1-3)/Fever >100.5/SCHNEIDER Aspirin 81 mg 02/11/21 10:00 02/11/21 09:15 Aspirin Ec 81 Mg Tab PO 81 mg QDAY SARAH Administration Calcium Acetate 1,334 mg 02/10/21 17:30 02/11/21 16:48 Calcium Acetate 667 Mg Cap PO 1,334 mg TIDWM SARAH Administration Dextrose 50 ml 02/10/21 16:35 Dextrose 50% In Water (25gm) 50 Ml Syringe IV Q30MIN PRN Hypoglycemia Protocol Docusate Sodium 100 mg 02/10/21 16:36 Docusate Sodium 100 Mg Cap PO BID PRN Constipation Heparin Sodium (Porcine) 5,000 unit 02/11/21 10:00 02/11/21 21:16 Heparin 5,000 Unit/1 Ml Vial SUB-Q 5,000 unit Q12HR SARAH Administration Heparin Sodium (Porcine) 3,000 unit 02/12/21 08:00 Heparin 10,000 Units/10 Ml Vial IV RIVER PRN hemodialysis Sodium Chloride 100 mls @ 999 mls/hr 02/11/21 10:00 Nacl 0.9% IV RIVER PRN Hypotension Insulin Glargine 30 units 02/10/21 18:00 02/11/21 12:29 Insulin Glargine 100 Units/Ml SUB-Q Not Given DAILY SARAH Morphine Sulfate 2 mg 02/10/21 16:35 Morphine 2 Mg/1 Ml Inj IV Q4H PRN Pain, Moderate (4-6) Multivit/Ca Carb/B Cmplx/FA/Prenat 1 cap 02/10/21 17:50 02/10/21 18:10 Folic Acid/Vit B Comp W-C 1 Mg (Renal Caps) PO 1 cap Tu SARAH Administration Ondansetron HCl 4 mg 02/10/21 16:35 Ondansetron 4 Mg/2 Ml Inj IV Q8H PRN Nausea And Vomiting Oxycodone/Acetaminophen 1 tab 02/10/21 16:35 Oxycodone /Acetaminophen 5-325mg Tab PO Q6H PRN Pain, Moderate (4-6) Pantoprazole Sodium 40 mg 02/10/21 18:00 02/11/21 09:15 Pantoprazole 40 Mg Tab PO 40 mg QDAC SARAH Administration Sodium Chloride 10 ml 02/10/21 22:00 02/11/21 21:16 Sodium Chloride 0.9% 10 Ml Flush Syringe IV 10 ml BID SARAH Administration Sodium Chloride 10 ml 02/10/21 16:35 Sodium Chloride 0.9% 10 Ml Flush Syringe IV PRN PRN LINE FLUSH Zolpidem Tartrate 5 mg 02/10/21 16:35 Zolpidem 5 Mg Tab PO QHS PRN Insomnia Nutrition/Malnutrition Assess - Dietary Evaluation Nutrition/Malnutrition Findings: Nutrition Notes Start: 02/11/21 12:14 Freq: Status: Active Protocol: Document 02/11/21 12:14 ARISTIDES (Rec: 02/11/21 12:20 ARISTIDES [id number]) Nutrition Notes Need for Assessment generated from: MD Order,pulper tender,MST Initial or Follow up Brief Note Current Diagnosis CKD (stage V CKD),Diabetes, Hypertension Other Pertinent Diagnosis syncope Current Diet Renal, Consistent CHO Height 5 ft 10 in Weight 80.5 kg Usual Body Weight 81.3 kg Ramona Body Weight (kg) 75.45 BMI 25.4 Intake Prior to Admission Fair Subjective/Other Information MD order for poor oral intakes and ONS. RN screen for MST. Pt reports not eating well [employer] but is eating 80-100% of meals now. Pt does not like the ONS. Willing to eat double protein portions. Burn Absent Trauma Absent Nutrition Intervention Change Diet Order: double protein Revisit per MD consult or patient Sign Off request:
--- NOTE | 2021-02-12 10:15 | Progress Note ---
Assessment and Plan 1. ESRD: Patient is on maintenance hemodialysis three times a week, TTS schedule. Meds dosage based on GFR. Missed outpatient 02/10. HD today. Hemodialysis: 02/11. 2. FEN: Monitor lytes and volume status. 3. Syncope: Patient is not sure about passing out. Likely 2/2 hypotension / vasovagal. Hold BP meds for now. Monitor. 4. Elevated troponin // conduction defect: Followed by Cards. 5. DM type 2. 6. Hypertension: Admitted with hypotension. Monitor BP. Hold BP meds for now. 7. Normochromic anemia, POA: 2/2 ESRD. Epogen was needed. Subjective: Patient was seen and examined at the bedside. Doing better. Examination: General appearance: well-developed, well-nourished, appears stated age, no distress HEENT: ATNC, JONATHAN, hearing intact, vision intact Neck: neck supple, trachea midline Respiratory: Clear to Auscultation Heart: regular, S1S2, no murmur Gastrointestinal: soft, normoactive bowel sounds, not tender Integumentary: warm, dry Neurologic: no focal deficit, no asterixis, alert and oriented x3 Ext: no edema Psychiatric: cooperative Hemodialysis access: R IJ tunnel catheter Subjective Date of service: 02/12/21 Objective - Vital Signs Vital signs: Vital Signs - 12hr 02/11/21 02/12/21 02/12/21 23:09 03:21 07:27 Temperature 98.3 F 98.0 F 99.0 F Pulse Rate 93 H 102 H 71 Respiratory 16 14 20 Rate Blood Pressure 108/65 106/69 92/57 O2 Sat by Pulse 98 97 98 Oximetry - Lab 02/10/21 13:28 02/12/21 04:36 Most recent lab results Calcium 7.9 mg/dL (8.4-10.2) L 02/12/21 04:36 Phosphorus 5.80 mg/dL (2.5-4.5) H 02/10/21 13:28 Medications & Allergies - Medications Allergies/Adverse Reactions: Allergies No Known Allergies Allergy (Unverified 05/09/19 11:44) Home Medications: Home Medications Medication Instructions Recorded Confirmed Last Taken Type Losartan [Cozaar] 50 mg PO QDAY #30 tablet 12/16/20 02/10/21 02/04/21 09:00 Rx Lasix TAB 40 mg PO DAILY 02/05/21 02/10/21 02/04/21 History Tresiba 50 units SC DAILY 02/05/21 02/10/21 02/04/21 History Aspirin EC [Halfprin EC] 81 mg PO QDAY tablet 02/07/21 02/10/21 Unknown Rx Benzonatate [Tessalon Perles] 100 mg PO Q8HR capsule 02/07/21 02/10/21 Unknown Rx Calcium Acetate [Phoslo] 1,334 mg PO TIDWM capsule 02/07/21 02/10/21 Unknown Rx Docusate Sodium [Colace CAP] 100 mg PO BID PRN capsule 02/07/21 02/10/21 Unknown Rx Insulin Glargine [Lantus VIAL] 50 units SUB-Q DAILY units 02/07/21 02/10/21 Unknown Rx Iron,Carb/Vit C/Vit B12/Folic [Fe 1 each PO 1XW #20 tablet 02/07/21 02/10/21 Unknown Rx C Plus Tablet] Ondansetron [Zofran ODT TAB] 4 mg PO Q6HR PRN #14 tab.rapdis 02/07/21 02/10/21 Unknown Rx Pantoprazole [Protonix TAB] 40 mg PO QDAC #30 tablet 02/07/21 02/10/21 Unknown Rx Zolpidem [Ambien] 5 mg PO QHS PRN tablet 02/07/21 02/10/21 Unknown Rx Active Medications: Generic Name Dose Route Start Last Admin Trade Name Freq PRN Reason Stop Dose Admin Acetaminophen 650 mg 02/10/21 16:35 Acetaminophen 325 Mg Tab PO Q4H PRN Pain MILD(1-3)/Fever >100.5/SCHNEIDER Aspirin 81 mg 02/11/21 10:00 02/11/21 09:15 Aspirin Ec 81 Mg Tab PO 81 mg QDAY SARAH Administration Calcium Acetate 1,334 mg 02/10/21 17:30 02/11/21 16:48 Calcium Acetate 667 Mg Cap PO 1,334 mg TIDWM SARAH Administration Dextrose 50 ml 02/10/21 16:35 Dextrose 50% In Water (25gm) 50 Ml Syringe IV Q30MIN PRN Hypoglycemia Protocol Docusate Sodium 100 mg 02/10/21 16:36 Docusate Sodium 100 Mg Cap PO BID PRN Constipation Heparin Sodium (Porcine) 5,000 unit 02/11/21 10:00 02/11/21 21:16 Heparin 5,000 Unit/1 Ml Vial SUB-Q 5,000 unit Q12HR SARAH Administration Heparin Sodium (Porcine) 3,000 unit 02/12/21 08:00 Heparin 10,000 Units/10 Ml Vial IV RIVER PRN hemodialysis Sodium Chloride 100 mls @ 999 mls/hr 02/11/21 10:00 Nacl 0.9% IV RIVER PRN Hypotension Insulin Glargine 30 units 02/10/21 18:00 02/11/21 12:29 Insulin Glargine 100 Units/Ml SUB-Q Not Given DAILY SARAH Morphine Sulfate 2 mg 02/10/21 16:35 Morphine 2 Mg/1 Ml Inj IV Q4H PRN Pain, Moderate (4-6) Multivit/Ca Carb/B Cmplx/FA/Prenat 1 cap 02/10/21 17:50 02/10/21 18:10 Folic Acid/Vit B Comp W-C 1 Mg (Renal Caps) PO 1 cap Tu SARAH Administration Ondansetron HCl 4 mg 02/10/21 16:35 Ondansetron 4 Mg/2 Ml Inj IV Q8H PRN Nausea And Vomiting Oxycodone/Acetaminophen 1 tab 02/10/21 16:35 Oxycodone /Acetaminophen 5-325mg Tab PO Q6H PRN Pain, Moderate (4-6) Pantoprazole Sodium 40 mg 02/10/21 18:00 02/11/21 09:15 Pantoprazole 40 Mg Tab PO 40 mg QDAC SARAH Administration Sodium Chloride 10 ml 02/10/21 22:00 02/11/21 21:16 Sodium Chloride 0.9% 10 Ml Flush Syringe IV 10 ml BID SARAH Administration Sodium Chloride 10 ml 02/10/21 16:35 Sodium Chloride 0.9% 10 Ml Flush Syringe IV PRN PRN LINE FLUSH Zolpidem Tartrate 5 mg 02/10/21 16:35 Zolpidem 5 Mg Tab PO QHS PRN Insomnia
--- NOTE | 2021-02-12 12:24 | Progress Note ---
Assessment and Plan Echo reviewed - EF 40-45%, hypokinesis in the anterior/anteroseptum/anterolateral wall. Lexiscan stress MPI this AM revealed no significant ischemia. Pre-syncope vs syncope may have occurred in the setting of paroxysmal AV block +/- hypotension. Orthostatic VS pending. Obtain repeat ECG. Given the continuance of transient high-degree AVB and no evidence of vagal mediation, pt will likely require PPM implantation. Awaiting EP consult later today. Continue to avoid AV myke blocking agents. Recommend PRN correction of electrolyte abnormalities. Mild CE elevation noted in the setting of ESRD. Pt seen in conjunction with Dr. Jd Marin, who agrees with the assessment and plan of care. - Patient Problems (1) Pre-syncope Current Visit: Yes Status: Resolved (2) High degree atrioventricular block Current Visit: Yes Status: Acute (3) ESRD on hemodialysis Current Visit: Yes Status: Chronic (4) Cardiomyopathy Current Visit: Yes Status: Chronic Qualifiers: Cardiomyopathy type: unspecified Qualified Code(s): I42.9 - Cardiomyopathy, unspecified (5) Elevated troponin Current Visit: Yes Status: Chronic (6) HTN (hypertension) Current Visit: Yes Status: Chronic Qualifiers: Hypertension type: essential hypertension Qualified Code(s): I10 - Essential (primary) hypertension (7) HLD (hyperlipidemia) Current Visit: Yes Status: Chronic Qualifiers: Hyperlipidemia type: mixed hyperlipidemia Qualified Code(s): E78.2 - Mixed hyperlipidemia (8) IDDM (insulin dependent diabetes mellitus) Current Visit: Yes Status: Chronic Subjective Date of service: 02/12/21 Principal diagnosis: Syncope Interval history: Pt seen in stress lab this AM. No cardiac complaints. Tele reviewed - SR w/Mobitz Type 1 AVB (5:1 conduction followed by 3:1 and 2:1 noted overnight). Pt was sleeping at the time and denies any symptoms. Objective Last Vital Signs Temp 99.0 F 02/12/21 11:45 Pulse 88 02/12/21 13:54 Resp 18 02/12/21 11:45 BP 77/50 02/12/21 12:30 Pulse Ox 98 02/12/21 07:27 - Physical Examination General: No Apparent Distress HEENT: Positive: EOMI, Normocephaly, Mucus Membranes Moist Neck: Positive: neck supple, trachea midline Cardiac: Positive: S1/S2, Other (AVB) Lungs: Positive: clear to auscultation Neuro: Positive: Grossly Intact Abdomen: Positive: Soft. Negative: Tender Skin: Negative: Rash Musculoskeletal: No Pain Extremities: Present: lower extr. pulses. Absent: edema - Labs and Meds Lipids 02/12/21 Range/Units 04:36 Triglycerides 188 H (2-149) mg/dL Cholesterol 125 (50-199) mg/dL HDL Cholesterol 31 L (40-59) mg/dL Cholesterol/HDL Ratio 4.03 % Comprehensive Metabolic Panel 02/12/21 Range/Units 04:36 Sodium 138 (137-145) mmol/L Potassium 4.1 (3.6-5.0) mmol/L Chloride 97.7 L (98-107) mmol/L Carbon Dioxide 24 (22-30) mmol/L BUN 45 H (9-20) mg/dL Creatinine 11.4 H (0.8-1.3) mg/dL Glucose 193 H (75-100) mg/dL Calcium 7.9 L (8.4-10.2) mg/dL - Imaging and Cardiology EKG: report reviewed, image reviewed Pharmacologic stress test: report reviewed (02/12/2021 - no evidence of significant ischemia) Echo: report reviewed (02/11/2021 - EF 40-45%, hypokinesis in the anterior/anteroseptum/anterolateral wall) - Telemetry EKG Rhythm: 2nd degree HB(Wenckebach) - EKG Sinus rhythms and dysrhythmias: sinus rhythm AV and intraventricular conduction: AV block, varying conduct
[2021-02-12] MEDS: ASPIRIN EC 81 MG TAB PO SCH (17:50)
[2021-02-12] MEDS: PANTOPRAZOLE 40 MG TAB PO SCH (17:50)
--- NOTE | 2021-02-12 19:10 | Event Note ---
Date: 02/12/21 60 Male admitted with syncope and hypotension recent hospital admission for poor PO intake and hypotension High grade AV block on Tele 4AM (sleeping/asymptomatic) ESRD/HD (New to HD since 12/24) Diabetes Anemia Gastritis/GERD After a lengthy discussion with patient his lightheadedness has resolved this admission since being able to eat and drink and holding BP meds. He has been instructed by nephrology to not take BP meds the morning of HD. (Currently not requiring antihypertensives) He has been told he snores. High grade AV block is likely increased vagal tone. Recommend sleep study as outpatient. However, the patient shows some evidence of conduction disease. No clear indication for PPM for now. Recommend he follow up as outpatient with Dr. Moralez [phone].
--- NOTE | 2021-02-12 21:19 | Treadmill Report ---
DATE OF SERVICE: 02/12/2021 NUCLEAR STRESS TEST REFERRING PHYSICIAN: Dr. Idris Leslie. PROTOCOL: The patient was assessed in a postabsorptive state given 10 mCi of technetium at rest. The rest imaging, the patient's Lexiscan stress test per standard protocol. At peak stress, the patient given 26 mCi of technetium 99m. Shortly thereafter, the patient underwent stress imaging. Gating is not performed due to presence of PACs. SPECT imaging examined carefully in the horizontal long axis, vertical long axis, short axis views. There is normal homogenous uptake of radioisotope in all port segments. No evidence of significant fixed or reversible perfusion defect suggestive of prior infarction or ischemia. CONCLUSIONS: 1. Normal myocardial perfusion scan without evidence of active ischemia or prior infarction. 2. Gaiting not performed due to presence of PACs. TID: [id number] RECEIPT: [id number] [facility]
[2021-02-13 07:37] VITALS: BP 139/88
[2021-02-13] MEDS: oxyCODONE /ACETAMINOPHEN 5-325MG TAB PO PRN ×2 (08:00→14:10)
--- NOTE | 2021-02-13 08:35 | Discharge Summary ---
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 The patient was found to also during hospitalization on telemetry to have high-grade AV block while sleeping which was asymptomatic. Cardiology and nephrology were both consulted. After a lengthy discussion with patient, his lightheadedness resolved this admission since being able to eat and drink and holding BP meds. He has been instructed by nephrology to not take BP meds the morning of HD. (Currently not requiring antihypertensives) He has been told he snores. High grade AV block is likely increased vagal tone. Recommend sleep study as outpatient. However, the patient shows some evidence of conduction disease. No clear indication for PPM for now. Recommend he follow up as outpatient with Dr. Vang [phone]. Dedicated discharge time 35 minutes Disposition: DC-01 TO HOME OR SELFCARE Final Discharge Diagnosis (Prints w/discharge instructions): High-grade AV block, diabetes mellitus type 2, anemia, gastritis/GERD, ESRD, hypotension Core Measure Documentation - Palliative Care Palliative Care/ Comfort Measures: Not Applicable - Core Measures Any of the following diagnoses?: none Exam - Constitutional Vitals: Temp Pulse Resp BP Pulse Ox 98.4 F 87 20 139/88 99 02/13/21 07:34 02/13/21 07:34 02/13/21 07:34 02/13/21 07:34 02/13/21 07:34 General appearance: Present: no acute distress, well-nourished - EENT Eyes: Present: PERRL ENT: hearing intact, clear oral mucosa - Neck Neck: Present: supple, normal ROM - Respiratory Respiratory effort: normal Respiratory: bilateral: CTA - Cardiovascular Heart Sounds: Present: S1 & S2. Absent: rub, click - Extremities Extremities: pulses symmetrical, No edema Peripheral Pulses: within normal limits - Abdominal General gastrointestinal: Present: soft, non-tender, non-distended, normal bowel sounds Male genitourinary: Present: normal - Integumentary Integumentary: Present: clear, warm, dry - Musculoskeletal Musculoskeletal: gait normal, strength equal bilaterally - Psychiatric Psychiatric: appropriate mood/affect, intact judgment & insight - Neurologic Neurologic: CNII-XII intact, moves all extremities Plan Activity: advance as tolerated Weight Bearing Status: Weight Bear as Tolerated Diet: regular Follow up with: PRIMARY CARE, [Primary Care Provider] - 3-5 Days RERE VANG MD [Staff Physician] - 7 Days HARRIS HERNANDEZ MD [Staff Physician] - 7 Days
[2021-02-13] MEDS: CALCIUM ACETATE 667 MG CAP PO SCH ×2 (09:43→16:12)
[2021-02-13] MEDS: PANTOPRAZOLE 40 MG TAB PO SCH (09:44)
[2021-02-13] MEDS: ASPIRIN EC 81 MG TAB PO SCH (09:44)
[2021-02-13] MEDS: INSULIN GLARGINE 100 UNITS/ML SUB-Q SCH (09:45)
[2021-02-13] MEDS: HEPARIN 5,000 UNIT/1 ML VIAL SUB-Q SCH (09:46)
--- NOTE | 2021-02-13 11:55 | Progress Note ---
Assessment and Plan 1. ESRD: Patient is on maintenance hemodialysis three times a week, TTS schedule. Meds dosage based on GFR. Missed outpatient 02/10. Hemodialysis: 02/11, 02/12. 2. FEN: Monitor lytes and volume status. 3. Syncope: Patient is not sure about passing out. Likely 2/2 hypotension / vasovagal. Hold BP meds for now. Monitor. 4. Elevated troponin // conduction defect: Followed by Cards. 5. DM type 2. 6. Hypertension: Admitted with hypotension. Monitor BP. Hold BP meds for now. 7. Normochromic anemia, POA: 2/2 ESRD. Epogen was needed. Subjective: Patient was seen and examined at the bedside. Doing better. Examination: General appearance: well-developed, well-nourished, appears stated age, no distress HEENT: ATNC, JONATHAN, hearing intact, vision intact Neck: neck supple, trachea midline Respiratory: Clear to Auscultation Heart: regular, S1S2, no murmur Gastrointestinal: soft, normoactive bowel sounds, not tender Integumentary: warm, dry Neurologic: no focal deficit, no asterixis, alert and oriented x3 Ext: no edema Psychiatric: cooperative Hemodialysis access: R IJ tunnel catheter Subjective Date of service: 02/13/21 Principal diagnosis: Syncope Objective - Vital Signs Vital signs: Vital Signs - 12hr 02/13/21 02/13/21 04:57 07:34 Temperature 98.3 F 98.4 F Pulse Rate 86 87 Respiratory 20 20 Rate Blood Pressure 129/72 139/88 O2 Sat by Pulse 99 99 Oximetry - Lab 02/10/21 13:28 02/12/21 04:36 Most recent lab results Calcium 7.9 mg/dL (8.4-10.2) L 02/12/21 04:36 Phosphorus 5.80 mg/dL (2.5-4.5) H 02/10/21 13:28 Magnesium 1.70 mg/dL (1.7-2.3) 02/12/21 17:15 Medications & Allergies - Medications Allergies/Adverse Reactions: Allergies No Known Allergies Allergy (Unverified 05/09/19 11:44) Home Medications: Home Medications Medication Instructions Recorded Confirmed Last Taken Type Losartan [Cozaar] 50 mg PO QDAY #30 tablet 12/16/20 02/10/21 02/04/21 09:00 Rx Lasix TAB 40 mg PO DAILY 02/05/21 02/10/21 02/04/21 History Tresiba 50 units SC DAILY 02/05/21 02/10/21 02/04/21 History Aspirin EC [Halfprin EC] 81 mg PO QDAY tablet 02/07/21 02/10/21 Unknown Rx Benzonatate [Tessalon Perles] 100 mg PO Q8HR capsule 02/07/21 02/10/21 Unknown Rx Calcium Acetate [Phoslo] 1,334 mg PO TIDWM capsule 02/07/21 02/10/21 Unknown Rx Docusate Sodium [Colace CAP] 100 mg PO BID PRN capsule 02/07/21 02/10/21 Unknown Rx Insulin Glargine [Lantus VIAL] 50 units SUB-Q DAILY units 02/07/21 02/10/21 Unknown Rx Iron,Carb/Vit C/Vit B12/Folic [Fe 1 each PO 1XW #20 tablet 02/07/21 02/10/21 Unknown Rx C Plus Tablet] Ondansetron [Zofran ODT TAB] 4 mg PO Q6HR PRN #14 tab.rapdis 02/07/21 02/10/21 Unknown Rx Pantoprazole [Protonix TAB] 40 mg PO QDAC #30 tablet 02/07/21 02/10/21 Unknown Rx Zolpidem [Ambien] 5 mg PO QHS PRN tablet 02/07/21 02/10/21 Unknown Rx AtorvaSTATin [Lipitor] 20 mg PO QHS tablet 02/13/21 Unknown Rx Zolpidem [Ambien] 5 mg PO QHS PRN tablet 02/13/21 Unknown Rx Active Medications: Generic Name Dose Route Start Last Admin Trade Name Freq PRN Reason Stop Dose Admin Acetaminophen 650 mg 02/10/21 16:35 Acetaminophen 325 Mg Tab PO Q4H PRN Pain MILD(1-3)/Fever >100.5/SCHNEIDER Aspirin 81 mg 02/11/21 10:00 02/13/21 09:44 Aspirin Ec 81 Mg Tab PO 81 mg QDAY SARAH Administration Atorvastatin Calcium 20 mg 02/12/21 22:00 02/12/21 22:00 Atorvastatin 20 Mg Tab PO 20 mg QHS SARAH Administration Calcium Acetate 1,334 mg 02/10/21 17:30 02/13/21 09:43 Calcium Acetate 667 Mg Cap PO 1,334 mg TIDWM SARAH Administration Dextrose 50 ml 02/10/21 16:35 Dextrose 50% In Water (25gm) 50 Ml Syringe IV Q30MIN PRN Hypoglycemia Protocol Docusate Sodium 100 mg 02/10/21 16:36 02/12/21 17:50 Docusate Sodium 100 Mg Cap PO 100 mg BID PRN Administration Constipation Heparin Sodium (Porcine) 5,000 unit 02/11/21 10:00 02/13/21 09:46 Heparin 5,000 Unit/1 Ml Vial SUB-Q 5,000 unit Q12HR SARAH Administration Heparin Sodium (Porcine) 3,000 unit 02/12/21 08:00 02/12/21 11:45 Heparin 10,000 Units/10 Ml Vial IV 3,000 unit RIVER PRN Administration hemodialysis Sodium Chloride 100 mls @ 999 mls/hr 02/11/21 10:00 Nacl 0.9% IV RIVER PRN Hypotension Insulin Glargine 30 units 02/10/21 18:00 02/13/21 09:45 Insulin Glargine 100 Units/Ml SUB-Q 30 units DAILY SARAH Administration Morphine Sulfate 2 mg 02/10/21 16:35 Morphine 2 Mg/1 Ml Inj IV Q4H PRN Pain, Moderate (4-6) Multivit/Ca Carb/B Cmplx/FA/Prenat 1 cap 02/10/21 17:50 02/10/21 18:10 Folic Acid/Vit B Comp W-C 1 Mg (Renal Caps) PO 1 cap Tu SARAH Administration Ondansetron HCl 4 mg 02/10/21 16:35 Ondansetron 4 Mg/2 Ml Inj IV Q8H PRN Nausea And Vomiting Oxycodone/Acetaminophen 1 tab 02/10/21 16:35 02/12/21 16:40 Oxycodone /Acetaminophen 5-325mg Tab PO 1 tab Q6H PRN Administration Pain, Moderate (4-6) Pantoprazole Sodium 40 mg 02/10/21 18:00 02/13/21 09:44 Pantoprazole 40 Mg Tab PO 40 mg QDAC SARAH Administration Sodium Chloride 10 ml 02/10/21 22:00 02/13/21 09:47 Sodium Chloride 0.9% 10 Ml Flush Syringe IV 10 ml BID SARAH Administration Sodium Chloride 10 ml 02/10/21 16:35 Sodium Chloride 0.9% 10 Ml Flush Syringe IV PRN PRN LINE FLUSH Zolpidem Tartrate 5 mg 02/10/21 16:35 Zolpidem 5 Mg Tab PO QHS PRN Insomnia
--- NOTE | 2021-02-13 13:20 | Progress Note ---
Assessment and Plan Echo reviewed - EF 40-45%, hypokinesis in the anterior/anteroseptum/anterolateral wall. Lexiscan stress MPI 02/12/2021 - no significant ischemia. EP recommendations reviewed. Outpatient sleep eval recommended. Otherwise stable cardiac status. No objections to discharge from a Cardiology standpoint. Follow-up with Dr. Moralez in our [place] office on 03/02/2021 @ 10:30am ([phone]). Pt seen in conjunction with Dr. Jd Marin, who agrees with the assessment and plan of care. - Patient Problems (1) Pre-syncope Current Visit: Yes Status: Resolved (2) High degree atrioventricular block Current Visit: Yes Status: Acute (3) ESRD on hemodialysis Current Visit: Yes Status: Chronic (4) Cardiomyopathy Current Visit: Yes Status: Chronic Qualifiers: Cardiomyopathy type: unspecified Qualified Code(s): I42.9 - Cardiomyopathy, unspecified (5) Elevated troponin Current Visit: Yes Status: Chronic (6) HTN (hypertension) Current Visit: Yes Status: Chronic Qualifiers: Hypertension type: essential hypertension Qualified Code(s): I10 - Essential (primary) hypertension (7) HLD (hyperlipidemia) Current Visit: Yes Status: Chronic Qualifiers: Hyperlipidemia type: mixed hyperlipidemia Qualified Code(s): E78.2 - Mixed hyperlipidemia (8) IDDM (insulin dependent diabetes mellitus) Current Visit: Yes Status: Chronic (9) ELVIRA (obstructive sleep apnea) Current Visit: Yes Status: Suspected Subjective Date of service: 02/13/21 Principal diagnosis: Syncope Interval history: No cardiac complaints. Tele reviewed - SR w/1st degree AVB, no events overnight. Objective Last Vital Signs Temp 98.4 F 02/13/21 07:34 Pulse 87 02/13/21 07:34 Resp 20 02/13/21 07:34 BP 139/88 02/13/21 07:34 Pulse Ox 99 02/13/21 07:34 - Physical Examination General: No Apparent Distress HEENT: Positive: EOMI, Normocephaly, Mucus Membranes Moist Neck: Positive: neck supple, trachea midline Cardiac: Positive: Reg Rate and Rhythm, S1/S2. Negative: Audible Murmur Lungs: Positive: clear to auscultation Neuro: Positive: Grossly Intact Abdomen: Positive: Soft. Negative: Tender Skin: Negative: Rash Musculoskeletal: No Pain Extremities: Present: lower extr. pulses. Absent: edema - Imaging and Cardiology EKG: report reviewed, image reviewed Pharmacologic stress test: report reviewed (02/12/2021 - negative for ischemia) Echo: report reviewed (02/11/2021 - EF 40-45%, hypokinesis in the anterior/anteroseptum/anterolateral wall) - Telemetry EKG Rhythm: 1st Degree HB - EKG Sinus rhythms and dysrhythmias: sinus rhythm AV and intraventricular conduction: AV block, varying conduct
--- NOTE | 2021-02-19 10:44 | Electrocardiograph Report ---
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
== END 2021-02-13 14:46 | disposition home health service (06) | DRG 308 ==
LOC: ED 12:00 → 4A 15:40 → OBSVTOIN 02-12 16:11
PROVIDERS: ADMIT Internal Medicine; ATTEND Hospitalist
PROC: 5A1D70Z Performance of Urinary Filtration, Intermittent, Less than 6 Hours Per Day (ICD-10-PCS; 2021-02-11)
PROC: 5A1D70Z Performance of Urinary Filtration, Intermittent, Less than 6 Hours Per Day (ICD-10-PCS; principal; 2021-02-12)
DX: I44.0 Atrioventricular block, first degree (principal); N18.6 End stage renal disease; I12.0 Hypertensive chronic kidney disease with stage 5 chronic kidney disease or end stage renal disease; I42.9 Cardiomyopathy, unspecified; R77.8 Other specified abnormalities of plasma proteins; I95.9 Hypotension, unspecified; K29.00 Acute gastritis without bleeding; E78.2 Mixed hyperlipidemia; G47.33 Obstructive sleep apnea (adult) (pediatric); D63.8 Anemia in other chronic diseases classified elsewhere; E11.22 Type 2 diabetes mellitus with diabetic chronic kidney disease; E66.9 Obesity, unspecified; E11.21 Type 2 diabetes mellitus with diabetic nephropathy; E78.5 Hyperlipidemia, unspecified; I44.30 Unspecified atrioventricular block; Z79.899 Other long term (current) drug therapy; Z79.891 Long term (current) use of opiate analgesic; Z79.01 Long term (current) use of anticoagulants; Z79.4 Long term (current) use of insulin; Z79.82 Long term (current) use of aspirin; Z90.79 Acquired absence of other genital organ(s); Z99.2 Dependence on renal dialysis
CPT/HCPCS: 36415; 71045; 78452; 80048; 80061; 80074; 80076; 82550; 82553; 82962; 83735; 83880; 84100; 84443; 84484; 85025; 85610; 85730; 87641; 93005; 93017; 93306; 96361; 96374; G0378; A9270-GY; A9502; J1644; J1815; J2785; J7050

== ENCOUNTER 2021-04-08 05:55 | Day surgery (SDC) | payer MEDICARE, OTHER ==
[2021-04-08] MEDS ORDERED: MIDAZOLAM 2 MG/2 ML INJ IV NR (06:00)
[2021-04-08] MEDS ORDERED: SODIUM CHLORIDE 0.9% 1000 ML 1,000 ML IV SCH (06:00)
[2021-04-08] MEDS ORDERED: ceFAZolin/STERILE WATER 2 GM/20 ML SYRINGE IV SCH (06:00)
[2021-04-08] MEDS ORDERED: fentaNYL 100 MCG/2 ML INJ IV PRN (06:00)
[2021-04-08 07:04] LABS: Hematocrit 33.2 % (35.5-45.6); Hemoglobin 11.1 gm/dl (11.8-15.2); Mean Corpuscular HGB Conc 33 % (32-34); Mean Corpuscular Volume 90 fl (84-94); Platelet Count 146 K/mm3 (140-440); Red Cell Distribution Width 14.1 % (13.2-15.2)
[2021-04-08] MEDS ORDERED: rifAMPin 600 MG VIAL ONE (08:25)
[2021-04-08] MEDS ORDERED: LIDOCAINE (1%) 10 MG/1 ML VIAL 20 ML MDV ONE (08:25)
[2021-04-08] MEDS ORDERED: SODIUM CHLORIDE P/F VIAL 10 ML 0 ML ONE (08:26)
[2021-04-08] MEDS ORDERED: SODIUM CHLORIDE 0.9% 500 ML 500 ML ONE (08:26)
[2021-04-08] MEDS ORDERED: BUPIVACAINE/PF (0.5%) 5 MG/1 ML 30 ML VIAL INFILTRATI ONE (08:27)
[2021-04-08] MEDS ORDERED: HEPARIN 10,000 UNITS/10 ML VIAL ONE (08:27)
[2021-04-08] MEDS ORDERED: ONDANSETRON 4 MG/2 ML INJ ONE ×2 (08:35→12:13)
[2021-04-08] MEDS ORDERED: ONDANSETRON 4 MG/2 ML INJ IV NR (08:36)
--- NOTE | 2021-04-08 08:41 | Anesthesia Consultation ---
Anesthesia Consult and Med Hx Date of service: 04/08/21 - Airway Anesthetic Teeth Evaluation: Good ROM Head & Neck: Adequate Mental/Hyoid Distance: Adequate Mallampati Class: Class III Intubation Access Assessment: Possibly Difficult - Pulmonary Exam CTA: Yes - Cardiac Exam Cardiac Exam: No Murmur (irregular rhythm) - Pre-Operative Health Status ASA Pre-Surgery Classification: ASA4 Proposed Anesthetic Plan: MAC Nerve Block: supraclavicular - Pulmonary Hx Respiratory Symptoms: No - Cardiovascular System Hx Hypertension: Yes (BP meds d/c'd 2/2 hypotension) Hx Heart Attack/AMI: No Hx Percutaneous Transluminal Coronary Angioplasty (PTCA): No Hx Cardia Arrhythmia: Yes (high deg AVB followed by cardiology) Hx Pacemaker: No Hx Internal Defibrillator: No - Central Nervous System CVA: No - Endocrine Hx End Stage Renal Disease: Yes (last HD 04/07/21) Hx Liver Disease: No Hx Insulin Dependent Diabetes: Yes Hx Thyroid Disease: No - Additional Comments Anesthesia Medical History Comments: No hx anesthetic complications. Reviewed outpatient cardiology records; patient has known high degree AVB however no plan for PPM placement at this time. Surgeon discussed with continuous still operator prior to procedure. Recent TTE and ST in chart reviewed.
--- NOTE | 2021-04-08 08:42 | Anesthesia Day of Surgery ---
Anesthesia Day of Surgery - Day of Surgery Patient Examined: Yes Patient H&P Reviewed: Yes Patient is NPO: Yes Beta Blockers: No (contraindicated)
[2021-04-08] MEDS ORDERED: BUPIVACAINE/PF (0.25%) 2.5 MG/ML 30 ML VIAL INFILTRATI ONE (08:44)
[2021-04-08] MEDS ORDERED: propofoL 200 MG/20 ML VIAL IV ONE (08:53)
[2021-04-08] MEDS ORDERED: MIDAZOLAM 2 MG/2 ML INJ ONE (08:53)
[2021-04-08] MEDS ORDERED: LIDOCAINE MPF (2%) 20 MG/1 ML VIAL 5 ML ONE (08:54)
[2021-04-08] MEDS ORDERED: PHENYLEPHRINE/NS 1,000 MCG/10 ML SYRINGE (OR USE) IV ONE (10:39)
--- NOTE | 2021-04-08 11:36 | Short Stay Summary ---
Short Stay Documentation Date of service: 04/08/21 Narrative H&P: See H&P - History H&P: obtained from office - Allergies and Medications Current Medications: Allergies No Known Allergies Allergy (Verified 04/01/21 13:01) Home Medications Medication Instructions Recorded Confirmed Last Taken Type Tresiba 50 units SC DAILY 02/05/21 04/08/21 04/07/21 09:00 History AtorvaSTATin [Lipitor] 20 mg PO QHS tablet 02/13/21 04/08/21 04/07/21 20:00 Rx Active Medications Cefazolin Sodium (Cefazolin/Sterile Water 2 Gm/20 Ml Syringe) 2 gm IV PREOP SARAH Stop: 04/08/21 23:00 Fentanyl (Fentanyl 100 Mcg/2 Ml Inj) 100 mcg IV ONCE PRN PRN Reason: sedation for nerve block Stop: 04/08/21 20:00 Sodium Chloride (Nacl 0.9% 1000 Ml) 1,000 mls @ 42 mls/hr IV DIRECT SARAH Stop: 04/08/21 23:59 Midazolam HCl (Midazolam 2 Mg/2 Ml Inj) 2 mg IV PREOP NR Stop: 04/08/21 20:00 - Brief post op/procedure progress note Date of procedure: 04/08/21 Pre-op diagnosis: End-Stage Renal Disease Post-op diagnosis: same Procedure: Creation of Left Radiocephalic Arteriovenous Fistula Anesthesia: MAC, regional Surgeon: ZION DEVINE Estimated blood loss: minimal Pathology: none Condition: stable - Disposition Condition at discharge: Good Disposition: DC-01 TO HOME OR SELFCARE Short Stay Discharge Plan Activity: other (No heavy lifting with left arm for 2 weeks. Please use the stress ball with left hand as often as possible.) Wound: open to air, keep clean and dry, other (Okay to wash the left arm wound with soap and water but do not soak in water for 2 weeks.) Follow up with: ZION DEVINE MD [Staff Physician] - 14 Days Prescriptions: HYDROcodone/APAP 5-325 [Fossil 5/325] 1 each PO Q4HR PRN #30 tablet PRN Reason: Pain
--- NOTE | 2021-04-08 11:39 | Operative Report ---
Operative Report Operative Report: Date of procedure: 04/08/2021 Pre-operative diagnosis: End-Stage Renal Disease Post-operative diagnosis: End-Stage Renal Disease Procedure(s): Creation of Left Chris Fistula Surgeon: Idris Ba MD Senior Erp Consultant: None Anesthesia: Local/MAC EBL: Minimal Counts: Correct Complications: None Condition: Stable Findings: Successful creation of left arm AV fistula with palpable thrill at the completion of the case. Specimen: None Indication: The patient is a 60-year-old male with a history of end-stage renal disease who is on hemodialysis through a right internal jugular permacath. He is in need of long-term dialysis access and had a vein mapping that demonstrated he is not a candidate for creation of an arteriovenous fistula. He was offered an arteriovenous graft and was given the risk, benefits, and alternative procedures and consented to the procedure. Description of Procedure: Prior to being transported to the operating room the patient had a regional block of his left upper extremity performed in the preoperative area. The patient was then transported to the operating room and adequately sedated. Once he was sedated his left arm was prepped and draped in normal sterile fashion. Upon evaluating his arm, the block significantly dilated his veins and it was obvious that his cephalic vein was adequate for creation of an arteriovenous fistula. I decided to create an arteriovenous fistula as I felt this was a better long-term solution for the patient that an arteriovenous graft. A longitudinal incision was then created on the distal wrist, centered between the cephalic vein and the radial artery. The dissection was carried down to the radial artery using sharp dissection and the radial artery was dissected circumferentially and controlled with vessel loops. The cephalic vein was then dissected circumferentially, ligating side branches with 3-0 silk ties and dividing them. The cephalic vein was then divided distally transpose to the radial artery. A 3 Addie was then advanced through the cephalic vein proximally to ensure patency. The vein was then flushed with heparinized saline and control of the bulldog clamp. The patient was systemically heparinized with 3000 units of heparin IV and the radial artery clamped with DeBakey clamps. An arteriotomy was then created using an 11 blade and Liang scissors. An end-to-side anastomosis was created between the cephalic vein and the radial artery using a single 6-0 Prolene in running fashion. Prior to completing the anastomosis I flashed the artery both retrograde and antegrade and advanced a 3 Addie into the proximal portion of the artery to break the spasm. I then completed the anastomosis and removed all clamps allowing flow into the fistula which had a palpable thrill. Hemostasis within the wound was achieved with a combination of manual pressure and Quick Clot. Once hemostasis was achieved the wounds were closed in 2 layers using a 3-0 Vicryl in running fashion in the deep dermal layers, 4-0 Monocryl in a running fashion the subcuticular layer, and Dermabond as a dressing. The patient tolerated the procedure well. All sponge, needle, and instrument counts were correct. The patient was taken to the recovery area in stable condition.
[2021-04-08] MEDS ORDERED: ONDANSETRON 4 MG/2 ML INJ IV ONE (13:15)
--- NOTE | 2021-04-08 13:18 | Post Anesthesia Evaluation ---
- Post Anesthesia Evaluation Patient Participated: Yes Airway Patent: Yes Stable Respiratory Function: Yes Nausea/Vomiting: No Temp > 96.8F: Yes Pain Manageable: Yes Adequeate Hydration: Yes Anesthesia Complications: No Block Receding Appropriately: Yes (sling provided)
[2021-04-08 13:26] VITALS: BP 142/86
--- NOTE | 2021-04-09 11:00 | Electrocardiograph Report ---
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
== END 2021-04-08 13:10 | disposition home or self-care (01) ==
LOC: OR 05:55
PROVIDERS: ATTEND Surgery Vascular Surgery
DX: I12.0 Hypertensive chronic kidney disease with stage 5 chronic kidney disease or end stage renal disease (principal); N18.6 End stage renal disease; E11.22 Type 2 diabetes mellitus with diabetic chronic kidney disease; E78.00 Pure hypercholesterolemia, unspecified; G47.33 Obstructive sleep apnea (adult) (pediatric); Z79.899 Other long term (current) drug therapy; Z98.890 Other specified postprocedural states
CPT/HCPCS: 36415; 36821; 64415; 80048; 82962; 85027; 93005; C1757; J0690; J1644; J2250; J2370; J2405; J2704; J7030; J7040; 64450; J3010; J3490

== ENCOUNTER 2021-07-11 16:52 | Emergency (ER) | payer MEDICARE, OTHER ==
--- NOTE | 2021-07-11 17:45 | Emergency Department Report ---
HPI - General Chief Complaint: Syncope Time Seen by Provider: 07/11/21 17:29 - HPI HPI: Room 21 The patient is a 60-year-old male present with a chief complaint of syncope. The patient states he was at hemodialysis for his normally scheduled session. Patient states he received dialysis for 4 hours after getting up and walking to the scale to be weighed he began to feel lightheaded and had a syncopal episode. The patient states his next memory is waking up on the ground with staff standing around him. Patient states they dialyzed him beyond his dry weight. Patient denied having any symptoms prior to hemodialysis. Patient currently denies symptoms. Patient denied having chest pain, shortness of breath, nausea vomiting/diarrhea or fever. ED Past Medical Hx - Past Medical History Hx Hypertension: Yes (BP meds d/c'd 2/2 hypotension) Hx Diabetes: Yes Additional medical history: anemia, dyslipidemia - Surgical History Additional Surgical History: Prostatectomy - Family History Family history: no significant - Social History Smoking Status: Never Smoker Substance Use Type: None (Denies illicit drug use) - Medications Home Medications: Home Medications Medication Instructions Recorded Confirmed Last Taken Type Tresiba 50 units SC DAILY 02/05/21 04/08/21 04/07/21 09:00 History AtorvaSTATin [Lipitor] 20 mg PO QHS tablet 02/13/21 04/08/21 04/07/21 20:00 Rx HYDROcodone/APAP 5-325 [Wrights 1 each PO Q4HR PRN #30 tablet 04/08/21 Unknown Rx 5/325] ED Review of Systems ROS: Stated complaint: SYNCOPE Other details as noted in HPI Constitutional: no symptoms reported Eyes: denies: eye pain ENT: denies: throat pain Respiratory: no symptoms reported Cardiovascular: denies: chest pain Endocrine: no symptoms reported Gastrointestinal: denies: abdominal pain Musculoskeletal: denies: back pain Neurological: denies: headache Physical Exam - Physical Exam Vital Signs: Vital Signs 07/11/21 07/11/21 07/11/21 17:47 17:51 18:25 Temperature 97.5 F L Pulse Rate 80 Pulse Rate [ 83 Lying] Pulse Rate [ 88 Sitting] Pulse Rate [ 101 H Standing] Respiratory 15 Rate Blood Pressure Blood Pressure 121/86 [Left] Blood Pressure 135/70 [Lying] Blood Pressure 113/61 [Sitting] Blood Pressure 92/49 [Standing] O2 Sat by Pulse 100 100 Oximetry 07/11/21 07/11/21 07/11/21 19:18 19:49 20:00 Temperature 97.9 F Pulse Rate 88 86 Pulse Rate [ 99 H Lying] Pulse Rate [ 94 H Sitting] Pulse Rate [ 91 H Standing] Respiratory 16 20 Rate Blood Pressure 103/61 Blood Pressure 137/74 [Left] Blood Pressure 103/61 [Lying] Blood Pressure 122/73 [Sitting] Blood Pressure 138/70 [Standing] O2 Sat by Pulse 98 Oximetry 07/11/21 07/11/21 07/11/21 20:30 21:00 22:09 Temperature Pulse Rate 87 87 92 H Pulse Rate [ Lying] Pulse Rate [ Sitting] Pulse Rate [ Standing] Respiratory 21 18 19 Rate Blood Pressure 137/74 129/71 Blood Pressure 145/73 [Left] Blood Pressure [Lying] Blood Pressure [Sitting] Blood Pressure [Standing] O2 Sat by Pulse 97 Oximetry Physical Exam: GENERAL: The patient is well-developed well-nourished male lying on stretcher not appearing to be in acute distress. [] HEENT: Normocephalic. Atraumatic. Extraocular motions are intact. Patient has moist mucous membranes. NECK: Supple. Trachea midline CHEST/LUNGS: Clear to auscultation. There is no respiratory distress noted. HEART/CARDIOVASCULAR: Regular. There is no tachycardia. There is no gallop rub or murmur. ABDOMEN: Abdomen is soft, nontender. Patient has normal bowel sounds. There is no abdominal distention. SKIN: There is no rash. There is no edema. There is no diaphoresis. NEURO: The patient is awake, alert, and oriented. The patient is cooperative. The patient has no focal neurologic deficits. The patient has normal speech. Cranial nerves II through XII grossly intact. GCS 15 MUSCULOSKELETAL: There is no evidence of acute injury. ED Course - Reevaluation(s) Reevaluation #1: 07/11/21 21:21 Patient became hypotensive upon standing when orthostatics were being checked. Patient did start to feel lightheaded again. Patient was administered IV fluids and during the second set of orthostatics the patient denies feeling lightheadedness. Patient currently asymptomatic ED Medical Decision Making - Lab Data Result diagrams: 07/11/21 18:00 07/11/21 18:00 Laboratory Tests 07/11/21 07/11/21 07/11/21 18:00 18:00 21:11 WBC 4.0 L RBC 4.26 Hgb 12.3 Hct 38.4 MCV 90 MCH 29 MCHC 32 RDW 13.8 Plt Count 134 L Lymph % (Auto) 19.3 [place] % (Auto) 9.4 H Eos % (Auto) 2.9 Baso % (Auto) 0.7 Lymph # (Auto) 0.8 L [place] # (Auto) 0.4 Eos # (Auto) 0.1 Baso # (Auto) 0.0 Seg Neutrophils % 67.7 Seg Neutrophils # 2.7 Sodium 134 L Potassium 4.3 Chloride 93.8 L Carbon Dioxide 22 Anion Gap 23 BUN 21 H Creatinine 6.3 H Estimated GFR 11 BUN/Creatinine Ratio 3 Glucose 127 H Calcium 9.7 Troponin T 0.081 H 0.071 H Triglycerides 79 Cholesterol 166 LDL Cholesterol Direct 104 HDL Cholesterol 56 Cholesterol/HDL Ratio 2.96 - EKG Data -: EKG Interpreted by Co EKG shows normal: sinus rhythm Rate: normal - EKG Data When compared to previous EKG there are: previous EKG unavailable Interpretation: other (No ischemic changes seen) - Differential Diagnosis Orthostasis, dysrhythmia Critical care attestation.: If time is entered above; I have spent that time in minutes in the direct care of this critically ill patient, excluding procedure time. ED Disposition Clinical Impression: Orthostasis Disposition: 01 HOME / SELF CARE / HOMELESS Is pt being admited?: No Does the pt Need Aspirin: No Condition: Stable Instructions: Orthostatic Hypotension Additional Instructions: Return to the emergency department should you develop worsening symptoms, inability to tolerate food or liquids, high fever or any other concerns Referrals: SITA SHEIKH MD [Primary Care Provider] - 3-5 Days Time of Disposition: 22:28
[2021-07-11] MEDS ORDERED: SODIUM CHLORIDE 0.9% 500 ML 500 ML IV ONE (18:15)
[2021-07-11 18:19] LABS: Basophils % (Auto) 0.7 % (0.0-1.8); Eosinophils # (Auto) 0.1 K/mm3 (0.0-0.4); Eosinophils % (Auto) 2.9 % (0.0-4.3); Hematocrit 38.4 % (35.5-45.6); Hemoglobin 12.3 gm/dl (11.8-15.2); Lymphocytes # (Auto) 0.8 K/mm3 (1.2-5.4); Lymphocytes % (Auto) 19.3 % (13.4-35.0); Mean Corpuscular HGB Conc 32 % (32-34); Mean Corpuscular Volume 90 fl (84-94); Monocytes # (Auto) 0.4 K/mm3 (0.0-0.8); Monocytes % (Auto) 9.4 % (0.0-7.3); Platelet Count 134 K/mm3 (140-440); Red Blood Count 4.26 M/mm3 (3.65-5.03); Red Cell Distribution Width 13.8 % (13.2-15.2)
[2021-07-11 19:15] LABS: Calcium 9.7 mg/dL (8.4-10.2); Chol/HDL Ratio 2.96 %
[2021-07-11 22:10] VITALS: BP 145/73
--- NOTE | 2021-07-12 11:47 | Electrocardiograph Report ---
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
== END 2021-07-11 22:47 | disposition home or self-care (01) ==
LOC: ED 16:52
DX: I95.1 Orthostatic hypotension (principal); I10 Essential (primary) hypertension; E11.9 Type 2 diabetes mellitus without complications; Z98.890 Other specified postprocedural states; D64.9 Anemia, unspecified
CPT/HCPCS: 36415; 80048; 80061; 84484; 85025; 93005; 99284; J7040